=== PATIENT | female | born 1970 | race Caucasian/White ===

== ENCOUNTER 2018-10-02 17:43 | Emergency (ER) | payer OTHER ==
[2018-10-02 18:27] LABS: Absolute Lymphocytes (CBC) 2.4 K/uL (0.7-4.9); Absolute Monocytes 0.7 K/uL (0.1-1.3); Absolute Neutrophil 5.6 K/uL (1.8-8.0); Basophils % 0.4 % (0-1.3); Eosinophils % 0.6 % (0-4.4); Hematocrit 39.3 % (36.0-45.0); Lymphocytes % 27.2 % (15.3-44.8); MPV 9.2 fL (7.6-11.3); Monocytes % 7.7 % (3.3-12.3)
[2018-10-02 18:34] LABS: Protime INR 0.98
[2018-10-02 18:47] LABS: ALT/SGPT 72 U/L (12-78); AST/SGOT 178 U/L (15-37); Albumin 3.7 g/dL (3.4-5.0); Alkaline Phosphatase 76 U/L (45-117); BUN Blood Urea Nitrogen 13 mg/dL (7-18); Bicarbonate 26 mmol/L (21-32); Bilirubin Direct 0.1 mg/dL (0-0.2); Bilirubin Total 0.3 mg/dL (0.2-1.0); Glucose Level 92 mg/dL (74-106); Magnesium 2.2 mg/dL (1.8-2.4); NT PRO-BNP 50 pg/mL (<125); Potassium 3.7 mmol/L (3.5-5.1); Protein, Total 7.2 g/dL (6.4-8.2); Sodium Level 143 mmol/L (136-145); Troponin (Emerg Dept Use Only) < 0.02 ng/mL (0.0-0.045)
[2018-10-02] MEDS ORDERED: ASPIRIN 81 MG CHEWABLE TABLET ONE (18:50)
--- NOTE | 2018-10-02 19:41 | RAD REPORT ---
EXAM DESCRIPTION: RAD - Chest Single View - 10/02/2018 7:31 pm CLINICAL HISTORY: CHEST PAIN Chest pain. COMPARISON: No comparisons FINDINGS: Portable technique limits examination quality. The lungs are grossly clear. The heart is normal in size. No displaced fractures. IMPRESSION: No acute intrathoracic process suspected.
--- NOTE | 2018-10-02 21:49 | ER ---
Nurse's Notes [facility] Name: Steph Olguin Age: 48 yrs Sex: Female : 1970 Arrival Date: 10/02/2018 Time: 17:41 Bed 6 Private MD: Diagnosis: Chest pain, unspecified;Abnormal electrocardiogram [ECG] [EKG] Presentation: 10/02 17:42 Presenting complaint: EMS states: pt c/o chest heaviness, started approx 1615. hx of ch wpw and anxiety. took antivan around 1645, as soon as pt sat down on stretcher she felt better. last night had etoh, 1/2 a whisky, and smokes. Transition of care: patient was not received from another setting of care. Onset of symptoms was October 02, 2018 at 16:15. Risk Assessment: Do you want to hurt yourself or someone else? Patient reports no desire to harm self or others. Initial Sepsis Screen: Does the patient meet any 2 criteria? No. Patient's initial sepsis screen is negative. Does the patient have a suspected source of infection? No. Patient's initial sepsis screen is negative. Care prior to arrival: IV initiated. 20 GA, in the right antecubital area. 17:42 Method Of Arrival: EMS: [facility] 17:42 Acuity: GRADY 3 ch Triage Assessment: 18:08 General: Appears in no apparent distress. Behavior is anxious, fussy, restless. Pain: Complains of pain in chest Pain currently is 7 out of 10 on a pain scale. Cardiovascular: Heart tones S1 S2 present Capillary refill < 3 seconds in bilateral fingers toes Clubbing of nail beds is present Patient's skin is warm and dry. Pulses are all present. Edema is absent. Respiratory: Airway is patent Respiratory effort is even, unlabored, Breath sounds are coarse bilaterally. GI: No signs and/or symptoms were reported involving the gastrointestinal system. Derm: Skin is pink, warm \T\ dry. COOK SHORT ORDER: 18:08 LMP N/A - Post-menopause ch Historical: - Allergies: 17:45 No Known Allergies; ch - Home Meds: 17:45 Ativan 1 mg Oral tab [Active]; BuSpar Oral [Active]; ch - PMHx: 17:45 wpw; Anxiety; ch - Immunization history:: Adult Immunizations up to date. - Social history:: Smoking status: Patient uses tobacco products, Patient uses alcohol, on a daily basis. - Ebola Screening: : Patient negative for fever greater than or equal to 101.5 degrees Fahrenheit, and additional compatible Ebola Virus Disease symptoms Patient denies exposure to infectious person Patient denies travel to an Ebola-affected area in the 21 days before illness onset No symptoms or risks identified at this time. Screenin:52 Abuse screen: Denies threats or abuse. Denies injuries from another. Nutritional ch screening: No deficits noted. Tuberculosis screening: No symptoms or risk factors identified. Fall Risk None identified. Assessment: 18:52 Reassessment: Patient appears in no apparent distress at this time. Patient and/or ch family updated on plan of care and expected duration. Pain level reassessed. Patient is alert, oriented x 3, equal unlabored respirations, skin warm/dry/pink. Pain: Pain does not radiate. Pain currently is 5 out of 10 on a pain scale. Pain began suddenly, 3 hours ago. Neuro: No deficits noted. Cardiovascular: Heart tones S1 S2 present Capillary refill < 3 seconds in bilateral fingers toes Clubbing of nail beds is absent. Respiratory: Airway is patent Respiratory effort is even, unlabored, Breath sounds are clear bilaterally. GI: No signs and/or symptoms were reported involving the gastrointestinal system. : No signs and/or symptoms were reported regarding the genitourinary system. Derm: Skin is pink, warm \T\ dry. 19:30 Reassessment: Patient appears in no apparent distress at this time. Patient is alert, lp1 oriented x 3, equal unlabored respirations, skin warm/dry/pink. Patient updated on continued monitoring and labs to recheck cardiac enzymes Patient states feeling better. 20:30 Reassessment: Patient appears in no apparent distress at this time. Patient is alert, lp1 oriented x 3, equal unlabored respirations, skin warm/dry/pink. Patient states symptoms have improved. 21:32 Reassessment: Patient appears in no apparent distress at this time. No changes from lp1 previously documented assessment. Patient and/or family updated on plan of care and expected duration. Pain level reassessed. 21:49 Reassessment: Patient is alert, oriented x 3, equal unlabored respirations, skin lp1 warm/dry/pink. Provider at bedside to discuss results with patient. Vital Signs: 18:08 BP 116 / 65; Pulse 82; Resp 14; Temp 98.2; Pulse Ox 96% on R/A; Weight 95.25 kg; Height 5 ft. 11 in. (180.34 cm); Pain 6/10; 18:52 BP 115 / 66; Pulse 83; Resp 16; Temp 97.8; Pulse Ox 99% on R/A; Pain 5/10; ch 19:18 BP 130 / 61; Pulse 81; Resp 17; Pulse Ox 98% on R/A; lp1 20:30 BP 117 / 71; Pulse 78; Resp 13; Pulse Ox 100% on R/A; lp1 21:30 BP 114 / 57; Pulse 75; Resp 14; Pulse Ox 98% on R/A; lp1 21:48 BP 128 / 73; Pulse 88; Resp 17; Pulse Ox 99% on R/A; Pain 0/10; lp1 18:08 Body Mass Index 29.29 (95.25 kg, 180.34 cm) ED Course: 17:41 Patient arrived in ED. ch 17:44 Triage completed. ch 17:45 Arm band placed on left wrist. Patient placed in an exam room, on a stretcher, on monitoring manager, on pulse oximetry. 18:00 Patient has correct armband on for positive identification. Placed in gown. Bed in low position. Call light in reach. Side rails up X 1. Adult w/ patient. bus monitor on. Pulse ox on. NIBP on. 18:00 Warm blanket given. PO fluids given. 18:02 Tk Vidal PA is PHCP. jr8 18:02 Stephen Bundy MD is Attending Physician. jr8 18:08 Abby Byrne, LB is Primary Nurse. ch 18:08 EKG completed in triage. Results shown to . ch 18:12 Initial lab(s) drawn, by hi, sent to lab. 3 18:55 No provider procedures requiring assistance completed. ch 18:55 Maintain EMS IV. Dressing intact. Good blood return noted. Site clean \T\ dry. Gauge \T\ site: 20 Rac. Patient maintains SpO2 saturation greater than 95% on room air. 19:00 Report given to Jacquelyn. ch 19:31 XRAY Chest (1 view) In Process Unspecified. EDMS 21:10 Repeat lab(s) drawn. by me, sent to lab. EKG done, by ED staff, reviewed by Tk Vidal lp1 SERGIO. 21:48 Neftali Phillips MD is Referral Physician. jrJulieta 21:49 IV discontinued, No redness/swelling at site. Pressure dressing applied. lp1 Administered Medications: 18:35 Drug: Aspirin Chewable Tablet 324 mg Route: PO; 18:55 Follow up: Response: No adverse reaction Outcome: 21:48 Discharge ordered by . jr8 21:54 Discharged to home ambulatory, with family. lp1 21:54 Condition: good 21:54 Discharge instructions given to patient, Instructed on discharge instructions, follow up and referral plans. Demonstrated understanding of instructions, follow-up care. 21:55 Patient left the ED. lp1 Signatures: Dispatcher [employer] EDMS Abby Byrne RN RN Jacquelyn Eden RN RN lp Tk Vidal PA PA [facility] Mildred Pineda [facility]
--- NOTE | 2018-10-02 21:49 | EDPHYS ---
Physician Documentation [facility] Name: Steph Olguin Age: 48 yrs Sex: Female : 1970 Arrival Date: 10/02/2018 Time: 17:41 Bed 6 Private MD: ED Physician Stephen Bundy HPI: 10/02 18:30 This 48 yrs old Female presents to ER via EMS with complaints of Chest Pain. jr8 18:30 The patient or guardian reports chest pain that is located primarily in the substernal jr8 area. Onset: acutely, today, 1 hour(s) ago. The pain does not radiate. Associated signs and symptoms: Pertinent positives: flushed feeling . The chest pain is described as a pressure. Duration: The patient or guardian reports a single episode, that is still ongoing, but improving. Modifying factors: The symptoms are alleviated by nothing. the symptoms are aggravated by nothing. Severity of pain: At its worst the pain was moderate in the emergency department the pain has improved. The patient has not experienced similar symptoms in the past. The patient has been recently seen by a physician: with different complaint(s), the patient was seen for palpitations. Possible development of WPW. 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 - Social history:: Smoking status: Patient uses tobacco products, Patient uses alcohol, on a daily basis. - Ebola Screening: : Patient negative for fever greater than or equal to 101.5 degrees Fahrenheit, and additional compatible Ebola Virus Disease symptoms Patient denies exposure to infectious person Patient denies travel to an Ebola-affected area in the 21 days before illness onset No symptoms or risks identified at this time. ROS: 18:30 Eyes: Negative for injury, pain, redness, and discharge, ENT: Negative for injury, jr8 pain, and discharge, Neck: Negative for injury, pain, and swelling, Respiratory: Negative for shortness of breath, cough, wheezing, and pleuritic chest pain, Abdomen/GI: Negative for abdominal pain, nausea, vomiting, diarrhea, and constipation, Back: Negative for injury and pain, MS/Extremity: Negative for injury and deformity, Skin: Negative for injury, rash, and discoloration, Neuro: Negative for headache, weakness, numbness, tingling, and seizure. 18:30 Cardiovascular: Positive for chest pain, Negative for edema, orthopnea, palpitations, paroxysmal nocturnal dyspnea. Exam: 21:46 Eyes: Pupils equal round and reactive to light, extra-ocular motions intact. Lids and jr8 lashes normal. Conjunctiva and sclera are non-icteric and not injected. Cornea within normal limits. Periorbital areas with no swelling, redness, or edema. ENT: Nares patent. No nasal discharge, no septal abnormalities noted. Tympanic membranes are normal and external auditory canals are clear. Oropharynx with no redness, swelling, or masses, exudates, or evidence of obstruction, uvula midline. Mucous membranes moist. Neck: Trachea midline, no thyromegaly or masses palpated, and no cervical lymphadenopathy. Supple, full range of motion without nuchal rigidity, or vertebral point tenderness. No Meningismus. Cardiovascular: Regular rate and rhythm with a normal S1 and S2. No gallops, murmurs, or rubs. Normal PMI, no JVD. No pulse deficits. Respiratory: Lungs have equal breath sounds bilaterally, clear to auscultation and percussion. No rales, rhonchi or wheezes noted. No increased work of breathing, no retractions or nasal flaring. Abdomen/GI: Soft, non-tender, with normal bowel sounds. No distension or tympany. No guarding or rebound. No evidence of tenderness throughout. Back: No spinal tenderness. No costovertebral tenderness. Full range of motion. Skin: Warm, dry with normal turgor. Normal color with no rashes, no lesions, and no evidence of cellulitis. MS/ Extremity: Pulses equal, no cyanosis. Neurovascular intact. Full, normal range of motion. Neuro: Awake and alert, GCS 15, oriented to person, place, time, and situation. Cranial nerves II-XII grossly intact. Motor strength 5/5 in all extremities. Sensory grossly intact. Cerebellar exam normal. Normal gait. Vital Signs: 18:08 BP 116 / 65; Pulse 82; Resp 14; Temp 98.2; Pulse Ox 96% on R/A; Weight 95.25 kg; Height ch 5 ft. 11 in. (180.34 cm); Pain 6/10; 18:52 BP 115 / 66; Pulse 83; Resp 16; Temp 97.8; Pulse Ox 99% on R/A; Pain 5/10; ch 19:18 BP 130 / 61; Pulse 81; Resp 17; Pulse Ox 98% on R/A; lp1 20:30 BP 117 / 71; Pulse 78; Resp 13; Pulse Ox 100% on R/A; lp1 21:30 BP 114 / 57; Pulse 75; Resp 14; Pulse Ox 98% on R/A; lp1 21:48 BP 128 / 73; Pulse 88; Resp 17; Pulse Ox 99% on R/A; Pain 0/10; lp1 18:08 Body Mass Index 29.29 (95.25 kg, 180.34 cm) ch MDM: 18:02 Patient medically screened. roney 21:46 The patient was given aspirin in the Emergency Department. Data reviewed: vital signs, [facility] nurses notes, lab test result(s), EKG, radiologic studies, plain films. Data interpreted: Pulse oximetry: on room air is 98 %. Interpretation: normal. Counseling: I had a detailed discussion with the patient and/or guardian regarding: the historical points, exam findings, and any diagnostic results supporting the discharge/admit diagnosis, lab results, radiology results, the need for outpatient follow up, a supervisor mixing, to return to the emergency department if symptoms worsen or persist or if there are any questions or concerns that arise at home. ED course: Patient feeling much better. No pain currently. x2 negative troponins. ECG suggestive of WPW. Delta wave present. Explained to patient that she does need to see cardiology for this. Patient has appointment this week for this . 10/02 18:03 Order name: Basic Metabolic Panel; Complete Time: 18: [facility] 10/02 18:03 Order name: CBC with Diff; Complete Time: 18: [facility] 10/02 18:03 Order name: LFT's; Complete Time: 18:52 [facility] 10/02 18:03 Order name: Magnesium; Complete Time: 18:52 [facility] 10/02 18:03 Order name: NT PRO-BNP; Complete Time: 18:52 [facility] 10/02 18:03 Order name: PT-INR; Complete Time: 18:52 [facility] 10/02 18:03 Order name: Troponin (emerg Dept Use Only); Complete Time: 18:52 10/02 18:03 Order name: XRAY Chest (1 view); Complete Time: 19:42 10/02 18:03 Order name: EKG; Complete Time: 18:04 10/02 18:03 Order name: Cardiac monitoring; Complete Time: 18:11 [facility] 10/02 18:03 Order name: EKG - Nurse/Tech; Complete Time: 18:11 10/02 18:03 Order name: IV Saline Lock; Complete Time: 18:11 10/02 20:55 Order name: Troponin (emerg Dept Use Only); Complete Time: 21:40 lp1 10/02 18:03 Order name: Labs collected and sent; Complete Time: 18:10/02 18:03 Order name: O2 Per Protocol; Complete Time: 18: [facility] 10/02 18:03 Order name: O2 Sat Monitoring; Complete Time: 18: [facility] 10/02 21:31 Order name: EKG - Nurse/Tech; Complete Time: 21:31 lp1 Administered Medications: 18:35 Drug: Aspirin Chewable Tablet 324 mg Route: PO; 18:55 Follow up: Response: No adverse reaction Disposition: 10/03 09:54 Co-signature as Attending Physician, Stephen Bundy MD I agree with the assessment and roney plan of care. PA/SUPERVISOR TELEPHONE ANSWERING SERVICE's history reviewed, patient interviewed, and examined. Disposition: 10/02/18 21:48 Discharged to Home. Impression: Chest pain, unspecified, Abnormal electrocardiogram [ECG] [EKG]. - Condition is Stable. - Discharge Instructions: Nonspecific Chest Pain, Aohhy-Frucxcyjy-Ndhml Syndrome, Aspirin and Your Heart, Chest Pain Observation. - Medication Reconciliation Form, Thank You Letter, Antibiotic Education, Prescription Opioid Use form. - Follow up: Neftali Phillips MD; When: 2 - 3 days; Reason: Recheck today's complaints, Continuance of care, Re-evaluation by your physician. - Problem is new. - Symptoms have improved. Signatures: Dispatcher [employer] EDMS Abby Byrne RN RN ch Anderson, Corey, MD MD cha Pena, Laura, RN RN lp1 Tk Vidal PA PA jr8 Corrections: (The following items were deleted from the chart) 10/02 21:55 21:48 10/02/2018 21:48 Discharged to Home. Impression: Chest pain, unspecified; lp1 Abnormal electrocardiogram [ECG] [EKG]. Condition is Stable. Forms are Medication Reconciliation Form, Thank You Letter, Antibiotic Education, Prescription Opioid Use. Follow up: Neftali Phillips; When: 2 - 3 days; Reason: Recheck today's complaints, Continuance of care, Re-evaluation by your physician. Problem is new. Symptoms have improved. jr8
--- NOTE | 2018-10-03 08:35 | EKG ---
Test Date: 2018-10-02 Test Time: 20:03:46 Pit Shovel Operator: KARLA MEASUREMENT RESULTS: Intervals: Rate: 75 MA: 126 QRSD: 110 QT: 428 QTc: 477 [place]: P: 61 MA: 126 QRS: -3 T: 78 INTERPRETIVE STATEMENTS: Normal sinus rhythm Ventricular pre-excitation, WPW pattern type A Abnormal ECG Compared to ECG 10/02/2018 16:50:08 No significant changes Electronically Signed On 10-03-18 08:34:11 CDT by Akash Erazo
== END 2018-10-02 21:55 | disposition home or self-care (01) ==
LOC: ER 17:43
DX: R94.31 Abnormal electrocardiogram [ECG] [EKG] (principal); F41.9 Anxiety disorder, unspecified; Z72.0 Tobacco use
CPT/HCPCS: 36415; 71045; 80048; 80076; 83735; 83880; 84484; 85025; 85610; 93005; 99285

== ENCOUNTER 2019-05-12 20:27 | Emergency (ER) | payer OTHER ==
[2019-05-12] MEDS ORDERED: HYDROCODONE/APAP 10/325 TAB ONE (21:19)
[2019-05-12] MEDS ORDERED: CLINDAMYCIN IV 150 MG/ML (4 mL) VIAL ONE (21:20)
--- NOTE | 2019-05-12 22:02 | ER ---
Nurse's Notes [facility] Name: Steph Olguin Age: 49 yrs Sex: Female : 1970 Arrival Date: 05/12/2019 Time: 20:32 Bed 15 Private MD: Diagnosis: Periapical abscess without sinus Presentation: 05/12 20:25 Presenting complaint: Patient states: that she has left facial swelling from a left fc upper tooth abscess that started yesterday. Went to dentist at [facility] today and was given Amoxicillin and Tylenol #3. Came to [facility] because the pain is getting worse along with the swelling. Transition of care: patient was not received from another setting of care. Onset of symptoms was May 11, 2019. Risk Assessment: Do you want to hurt yourself or someone else? Patient reports no desire to harm self or others. Initial Sepsis Screen: Does the patient meet any 2 criteria? HR > 90 bpm. Yes Does the patient have a suspected source of infection? Yes: Other: tooth. Care prior to arrival: Medication(s) given: Tylenol, 1000 mg, per EMS. 20:25 Method Of Arrival: EMS: [facility] 20:25 Acuity: GRADY 3 Triage Assessment: 20:45 EENT: Reports pain in upper left second bicuspid (#13) and upper left second bicuspid. 22:23 General: Appears. 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 - Social history:: Smoking status: Patient uses tobacco products, smokes one-half pack cigarettes per day, Patient/guardian denies using alcohol, street drugs. - Ebola Screening: : Patient negative for fever greater than or equal to 101.5 degrees Fahrenheit, and additional compatible Ebola Virus Disease symptoms Patient denies exposure to infectious person Patient denies travel to an Ebola-affected area in the 21 days before illness onset. Screenin:25 Abuse screen: Denies threats or abuse. Nutritional screening: No deficits noted. Tuberculosis screening: No symptoms or risk factors identified. Fall Risk None identified. Assessment: 22:00 General: Appears in no apparent distress. Behavior is calm, cooperative, appropriate wh for age. Pain: Complains of pain in left cheek Pain does not radiate. Pain currently is 10 out of 10 on a pain scale. Quality of pain is described as aching, Pain began 2-3 days ago. Neuro: Level of Consciousness is awake, alert, obeys commands. Cardiovascular: Capillary refill < 3 seconds. Respiratory: Airway is patent Respiratory effort is even, unlabored, Respiratory pattern is regular, symmetrical. GI: Abdomen is flat, non-distended. : No signs and/or symptoms were reported regarding the genitourinary system. EENT: swelling. Derm: Skin is intact, is healthy with good turgor, Skin is pink, warm \T\ dry. normal. Musculoskeletal: Circulation, motion, and sensation intact. 22:14 Reassessment: Patient appears in no apparent distress at this time. No changes from previously documented assessment. Patient and/or family updated on plan of care and expected duration. Pain level reassessed. Patient is alert, oriented x 3, equal unlabored respirations, skin warm/dry/pink. Patient denies pain at this time. Patient states feeling better. Patient states symptoms have improved. Vital Signs: 20:25 BP 127 / 84; Pulse 98; Resp 18; Temp 99.0(O); Pulse Ox 100% on R/A; Weight 90.72 kg (R); Height 5 ft. 11 in. (180.34 cm) (R); Pain 8/10; 22:27 BP 124 / 64; Pulse 78; Resp 18; Pulse Ox 94% on R/A; wh 20:25 Body Mass Index 27.89 (90.72 kg, 180.34 cm) ED Course: 20:25 Arm band placed on Patient placed in an exam room, on a stretcher. 20:25 Patient has correct armband on for positive identification. Bed in low position. Call light in reach. Side rails up X2. Pulse ox on. NIBP on. 20:25 No provider procedures requiring assistance completed. 20:32 Patient arrived in ED. 20:35 Triage completed. 20:39 Francisco Briones NP is PHCP. pm1 20:39 Stephen Bundy MD is Attending Physician. pm1 20:56 Alexandra Mckee is Primary Nurse. 22:26 Patient did not have IV access during this emergency room visit. Administered Medications: 21:28 Drug: Clindamycin 600 mg {Note: Left Gluteus.} Route: IM; Site: right gluteus; 22:23 Follow up: Response: No adverse reaction 21:29 Drug: [place] 10 mg-325 mg 1 tabs {Note: RASS 0.} Route: PO; 22:23 Follow up: Response: No adverse reaction; Pain is decreased; RASS: Alert and Calm (0) Outcome: 21:58 Discharge ordered by MD. pm1 22:22 Discharged to home ambulatory. 22:22 Condition: good 22:22 Discharge instructions given to patient, Instructed on discharge instructions, follow up and referral plans. no drinking with medication, no driving heavy equipment, medication usage, POC Periapical Abscess Demonstrated understanding of instructions, follow-up care, medications, POC Prescriptions given X 2. 22:27 Patient left the ED. Signatures: Ursula Vargas RN RN Francisco Briones NP STATE AUDITOR pm1 Alexandra Mckee Corrections: (The following items were deleted from the chart) 20:35 20:25 Care prior to arrival: None. [facility]
--- NOTE | 2019-05-12 22:03 | EDPHYS ---
Physician Documentation [facility] Name: Steph Olguin Age: 49 yrs Sex: Female : 1970 Arrival Date: 05/12/2019 Time: 20:32 Bed 15 Private MD: ED Physician Stephen Bundy HPI: 05/12 21:50 This 49 yrs old Female presents to ER via EMS with complaints of Toothache. pm1 21:50 The patient presents with pain, swelling. The problem is located in the upper left pm1 second bicuspid. Onset: The symptoms/episode began/occurred 3 days of pain with onset of swelling today. Patient was seen by dentist today and was given a prescription of amoxicillin and Tylenol #3. Patient has taken three pills of amoxicillin and Tylenol #3. Patient reports onset of swelling today after dentist visit. Associated signs and symptoms: Pertinent positives: swelling, facial, Pertinent negatives: dysphagia, fever, inability to eat. Severity of symptoms: in the emergency department the symptoms are actually worse. The patient has experienced similar episodes in the past, a few times. 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 - Social history:: Smoking status: Patient uses tobacco products, smokes one-half pack cigarettes per day, Patient/guardian denies using alcohol, street drugs. - Ebola Screening: : Patient negative for fever greater than or equal to 101.5 degrees Fahrenheit, and additional compatible Ebola Virus Disease symptoms Patient denies exposure to infectious person Patient denies travel to an Ebola-affected area in the 21 days before illness onset. ROS: 21:50 Constitutional: Negative for fever, chills, and weight loss, Eyes: Negative for injury, pm1 pain, redness, and discharge. 21:50 Neck: Negative for injury, pain, and swelling, Cardiovascular: Negative for chest pain, palpitations, and edema, Respiratory: Negative for shortness of breath, cough, wheezing, and pleuritic chest pain, Abdomen/GI: Negative for abdominal pain, nausea, vomiting, diarrhea, and constipation, Back: Negative for injury and pain, MS/Extremity: Negative for injury and deformity, Skin: Negative for injury, rash, and discoloration. 21:50 Neuro: Negative for headache, weakness, numbness, tingling, and seizure. 21:50 ENT: Positive for dental pain, Negative for ear pain, sore throat, difficulty swallowing, difficulty handling secretions, hoarseness. Exam: 21:50 Constitutional: This is a well developed, well nourished patient who is awake, alert, pm1 and in no acute distress. Head/Face: Normocephalic, atraumatic. 21:50 Neck: Trachea midline, no thyromegaly or masses palpated, and no cervical lymphadenopathy. Supple, full range of motion without nuchal rigidity, or vertebral point tenderness. No Meningismus. Chest/axilla: Normal chest wall appearance and motion. Nontender with no deformity. No lesions are appreciated. Cardiovascular: Regular rate and rhythm with a normal S1 and S2. No gallops, murmurs, or rubs. Normal PMI, no JVD. No pulse deficits. Respiratory: Lungs have equal breath sounds bilaterally, clear to auscultation and percussion. No rales, rhonchi or wheezes noted. No increased work of breathing, no retractions or nasal flaring. Back: No spinal tenderness. No costovertebral tenderness. Full range of motion. Skin: Warm, dry with normal turgor. Normal color with no rashes, no lesions, and no evidence of cellulitis. MS/ Extremity: Pulses equal, no cyanosis. Neurovascular intact. Full, normal range of motion. 21:50 ENT: External ear(s): are unremarkable, Ear canal(s): are normal, TM's: are normal, Mouth: is normal, no acute changes, Lips: normal, Oral mucosa: normal, Tongue: is normal, No trismus. Floor of mouth under tongue is soft. Upper plate non-tender, Posterior pharynx: is normal, airway is patent, no erythema, no exudate, no peritonsilar mass, no pooling of secretions, no swelling, Dental exam: abscess, is not appreciated, dental caries, specifically in the upper left second bicuspid (#13), gum swelling, that is mild, specifically in the upper left second bicuspid (#13), missing teeth, diffusely. 21:50 Neuro: Orientation: is normal, Motor: is normal, moves all fours, Gait: is steady, at a normal pace, without difficulty. Vital Signs: 20:25 BP 127 / 84; Pulse 98; Resp 18; Temp 99.0(O); Pulse Ox 100% on R/A; Weight 90.72 kg fc (R); Height 5 ft. 11 in. (180.34 cm) (R); Pain 8/10; 22:27 BP 124 / 64; Pulse 78; Resp 18; Pulse Ox 94% on R/A; wh 20:25 Body Mass Index 27.89 (90.72 kg, 180.34 cm) MDM: 20:39 Patient medically screened. pm1 20:55 Data reviewed: vital signs. Data interpreted: Pulse oximetry: on room air is 100 %. pm1 Interpretation: normal. 21:55 Counseling: I had a detailed discussion with the patient and/or guardian regarding: the pm1 historical points, exam findings, and any diagnostic results supporting the discharge/admit diagnosis, the need for outpatient follow up, for definitive care, a dentist, to return to the emergency department if symptoms worsen or persist or if there are any questions or concerns that arise at home. 21:55 ED course: Due to swelling will change antibiotic therapy from amoxicillin to pm1 clindamycin. Will be able to load to therapeutic dosage with Clindamycin IM in ER to Clindamycin prescription PO. Patient only given 6 tablets of Tylenol #3. Patient already used three, therefore will give patient another prescription. Administered Medications: 21:28 Drug: Clindamycin 600 mg {Note: Left Gluteus.} Route: IM; Site: right gluteus; 22:23 Follow up: Response: No adverse reaction 21:29 Drug: [place] 10 mg-325 mg 1 tabs {Note: RASS 0.} Route: PO; 22:23 Follow up: Response: No adverse reaction; Pain is decreased; RASS: Alert and Calm (0) Disposition: 05/12/19 21:58 Discharged to Home. Impression: Periapical abscess without sinus. - Condition is Stable. - Discharge Instructions: Dental Pain. - Prescriptions for Clindamycin HCl 300 mg Oral Capsule - take 1 capsule by ORAL route every 6 hours for 10 days; 40 capsule. Tylenol- Codeine #3 300-30 mg Oral Tablet - take 2 tablet by ORAL route every 6 hours As needed; 30 tablet. - Medication Reconciliation Form, Thank You Letter, Antibiotic Education, Prescription Opioid Use form. - Follow up: Emergency Department; When: As needed; Reason: Worsening of condition. Follow up: Private Physician; When: 2 - 3 days; Reason: Recheck today's complaints, Continuance of care, Re-evaluation by your physician. - Problem is new. - Symptoms have improved. Addendum: 05/15/2019 08:09 Co-signature as Attending Physician, Stephne Bundy MD I agree with the assessment and c carreon plan of care. Signatures: Stephen Bundy MD MD cha Chretien, Felicia RN RN Francisco Abdul, [facility] A[facility] pm1 Alexandra Mckee Corrections: (The following items were deleted from the chart) 05/12 22:27 21:58 05/12/2019 21:58 Discharged to Home. Impression: Periapical abscess without wh sinus. Condition is Stable. Forms are Medication Reconciliation Form, Thank You Letter, Antibiotic Education, Prescription Opioid Use. Follow up: Emergency Department; When: As needed; Reason: Worsening of condition. Follow up: Private Physician; When: 2 - 3 days; Reason: Recheck today's complaints, Continuance of care, Re-evaluation by your physician. Problem is new. Symptoms have improved. pm1
[2019-05-12 22:57] VITALS: BP 124/64; O2SAT 94
== END 2019-05-12 22:27 | disposition home or self-care (01) ==
LOC: ER 20:27
DX: K04.7 Periapical abscess without sinus (principal); F41.8 Other specified anxiety disorders; F17.210 Nicotine dependence, cigarettes, uncomplicated
CPT/HCPCS: 96372; 99284; S0077

== ENCOUNTER 2019-06-19 12:16 | Emergency (ER) | payer OTHER ==
--- OUTSIDE RECORDS SUMMARY | 2019-06-19 12:19 | XMS REPORT ---
:1970 Author Organization [facility] Address [address] [place] [address] Care Team Providers Name Role Phone Unavailable Unavailable Unavailable Problems This patient has no known problems. Allergies, Adverse Reactions, Alerts This patient has no known allergies or adverse reactions. Medications This patient has no known medications.
[2019-06-19] MEDS ORDERED: NA CHLORIDE 0.9% 1,000 ML ONE (14:19)
[2019-06-19 14:23] LABS: Absolute Lymphocytes (CBC) 2.7 K/uL (0.7-4.9); Basophils % 0.6 % (0-1.3); Hematocrit 35.4 % (36.0-45.0); Lymphocytes % 26.4 % (15.3-44.8); MPV 8.9 fL (7.6-11.3); RBC Red Blood Cell Count 3.87 M/uL (3.86-4.86)
[2019-06-19 14:56] LABS: Albumin 3.8 g/dL (3.4-5.0); Bilirubin Direct 0.2 mg/dL (0-0.2); Bilirubin Total 0.3 mg/dL (0.2-1.0); Potassium 3.8 mmol/L (3.5-5.1); Protein, Total 7.3 g/dL (6.4-8.2)
[2019-06-19] MEDS ORDERED: METRONIDAZOLE 500mg IVPB 500 MG/100 ML BAG IV ONE (16:27)
[2019-06-19] MEDS ORDERED: CIPROFLOXACIN 400mg IV 400 MG/200 ML BAG IV ONE (16:27)
--- NOTE | 2019-06-19 17:31 | RAD REPORT ---
EXAM DESCRIPTION: CTAbdomen Pelvis W Contrast - 06/19/2019 4:26 pm CLINICAL HISTORY: Abdominal pain. ABD PAIN COMPARISON: <Comparisons> TECHNIQUE: Biphasic CT imaging of the abdomen and pelvis was performed with 100 ml non-ionic IV cont rast. All CT scans are performed using dose optimization technique as appropriate and may include automated exposure control or mA/KV adjustment according to patient size. FINDINGS: The lung bases are clear.Small hiatal hernia is present. The liver, spleen, pancreas, adrenal glands and kidneys are within normal limits. There is significant distention of the sigmoid colon. There is postsurgical changes in the region of the sigmoid. Focal area of narrowing of the sigmoid colon in the left abdomen is noted (image 55/97). Moderate fecal retention is present throughout the colon. No evidence of significant lymphadenopat hy. No suspicious bony findings. 4.4 cm right ovarian or adnexal cystic lesion noted. IMPRESSION: Sigmoid volvulus is suspected.
--- NOTE | 2019-06-19 18:07 | EDPHYS ---
Physician Documentation [facility] Name: Steph Olguin Age: 49 yrs Sex: Female : 1970 Arrival Date: 06/19/2019 Time: 12:19 Bed 30 Private MD: Unknown, Unknown ED Physician Stephen Bundy HPI: 06/19 16:22 This 49 yrs old Female presents to ER via Ambulatory with complaints of roney Rectal Bleeding. 16:22 The patient presents to the emergency department with bleeding from the rectum/anus. roney Onset: The symptoms/episode began/occurred yesterday. Context: the patient has no known special context relating to the rectal area complaint(s). Modifying factors: The symptoms are alleviated by nothing, The symptoms are aggravated by bowel movement. Associate signs and symptoms: The patient has no apparent associated signs or symptoms. The patient has experienced similar episodes in the past, a few times. 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 - Social history:: Smoking status: Patient/guardian denies using tobacco. - Ebola Screening: : No symptoms or risks identified at this time. ROS: 16:23 Constitutional: Negative for fever, chills, and weight loss, Eyes: Negative for injury, roney pain, redness, and discharge, ENT: Negative for injury, pain, and discharge, Neck: Negative for injury, pain, and swelling, Cardiovascular: Negative for chest pain, palpitations, and edema, Respiratory: Negative for shortness of breath, cough, wheezing, and pleuritic chest pain, Back: Negative for injury and pain, : Negative for injury, bleeding, discharge, and swelling, MS/Extremity: Negative for injury and deformity, Skin: Negative for injury, rash, and discoloration, Neuro: Negative for headache, weakness, numbness, tingling, and seizure, Psych: Negative for depression, anxiety, suicide ideation, homicidal ideation, and hallucinations, Allergy/Immunology: Negative for hives, rash, and allergies, Endocrine: Negative for neck swelling, polydipsia, polyuria, polyphagia, and marked weight changes, Hematologic/Lymphatic: Negative for swollen nodes, abnormal bleeding, and unusual bruising. 16:23 Abdomen/GI: Positive for abdominal pain, abdominal cramps, of the right lower quadrant and left lower quadrant. Exam: 16:23 Constitutional: This is a well developed, well nourished patient who is awake, alert, roney and in no acute distress. Head/Face: Normocephalic, atraumatic. Eyes: Pupils equal round and reactive to light, extra-ocular motions intact. Lids and lashes normal. Conjunctiva and sclera are non-icteric and not injected. Cornea within normal limits. Periorbital areas with no swelling, redness, or edema. ENT: Nares patent. No nasal discharge, no septal abnormalities noted. Tympanic membranes are normal and external auditory canals are clear. Oropharynx with no redness, swelling, or masses, exudates, or evidence of obstruction, uvula midline. Mucous membranes moist. Neck: Trachea midline, no thyromegaly or masses palpated, and no cervical lymphadenopathy. Supple, full range of motion without nuchal rigidity, or vertebral point tenderness. No Meningismus. Chest/axilla: Normal chest wall appearance and motion. Nontender with no deformity. No lesions are appreciated. Cardiovascular: Regular rate and rhythm with a normal S1 and S2. No gallops, murmurs, or rubs. Normal PMI, no JVD. No pulse deficits. Respiratory: Lungs have equal breath sounds bilaterally, clear to auscultation and percussion. No rales, rhonchi or wheezes noted. No increased work of breathing, no retractions or nasal flaring. Back: No spinal tenderness. No costovertebral tenderness. Full range of motion. Female : Normal external genitalia. Skin: Warm, dry with normal turgor. Normal color with no rashes, no lesions, and no evidence of cellulitis. MS/ Extremity: Pulses equal, no cyanosis. Neurovascular intact. Full, normal range of motion. Neuro: Awake and alert, GCS 15, oriented to person, place, time, and situation. Cranial nerves II-XII grossly intact. Motor strength 5/5 in all extremities. Sensory grossly intact. Cerebellar exam normal. Normal gait. Psych: Awake, alert, with orientation to person, place and time. Behavior, mood, and affect are within normal limits. 16:23 Abdomen/GI: Inspection: distension, that is mild, Bowel sounds: normal, Palpation: mild abdominal tenderness, in the right lower quadrant and left lower quadrant, Liver: no appreciated palpable abnormalities, Hernia: not appreciated. Vital Signs: 12:35 BP 132 / 81; Pulse 77; Resp 16; Temp 98.3; Pulse Ox 100% on R/A; la1 16:05 BP 150 / 107; Pulse 79; Resp 18; Pulse Ox 100% on R/A; mg2 17:06 BP 145 / 83 Supine; Pulse 71; Resp 18; Pulse Ox 100% on R/A; mg2 17:06 BP 133 / 75 Sitting; Pulse 72; Resp 18; Pulse Ox 100% on R/A; mg2 17:06 BP 157 / 96 Standing; Pulse 82; Resp 18; Pulse Ox 100% on R/A; mg2 18:13 BP 145 / 91; Pulse 75; Resp 18; Pulse Ox 100% on R/A; mg2 MDM: 14:04 Patient medically screened. [facility] 18:06 Data reviewed: vital signs, nurses notes, lab test result(s), EKG, radiologic studies, [facility] CT scan, plain films. 19:20 Other consultation: dr suarez saw and examined the patient, wants the patient to go [facility] home and follow up with dr samy hudson. 06/19 14:01 Order name: Basic Metabolic Panel; Complete Time: 16:08 [facility] 06/19 14:01 Order name: CBC with Diff; Complete Time: 16: [facility] 06/19 14:01 Order name: Creatinine for Radiology; Complete Time: 16: [facility] 06/19 14:01 Order name: Hepatic Function; Complete Time: 16:08 [facility] 06/19 14:01 Order name: Lipase; Complete Time: 16:08 [facility] 06/19 16:09 Order name: CT Abd/Pelvis - PO and IV Contrast [facility] 06/19 16:11 Order name: Urine --Ancillary (enter results); Complete Time: 16:21 bd 06/19 14:01 Order name: IV Saline Lock; Complete Time: 14:15 [facility] 06/19 14:01 Order name: Labs collected and sent; Complete Time: 14:15 [facility] 06/19 14:12 Order name: Urine Dipstick-Ancillary (obtain specimen); Complete Time: 14:44 [facility] 06/19 16:22 Order name: Orthostatics; Complete Time: 17:05 [facility] 06/19 18:03 Order name: CONS Physician Consult EDMS Administered Medications: 14:37 Drug: NS 0.9% 1000 ml Route: IV; Rate: 1 bolus; Site: right antecubital; mg2 18:16 Follow up: Response: No adverse reaction; IV Status: Completed infusion; IV Intake: mg2 1000ml 17:05 Drug: Cipro 400 mg Volume: 200 ml; Route: IVPB; Infused Over: 60 mins; Site: right mg2 antecubital; 18:15 Follow up: Response: No adverse reaction; IV Status: Completed infusion mg2 17:05 Drug: Flagyl 500 mg Volume: 100 ml; Route: IVPB; Rate: 200 ml/hr; Infused Over: 30 mg2 mins; Site: right antecubital; 18:15 Follow up: Response: No adverse reaction; IV Status: Completed infusion mg2 Disposition: 06/19/19 19:23 Discharged to Home. Impression: Gastrointestinal hemorrhage, unspecified, Abdominal tenderness - sigmoid stricture. - Condition is Stable. - Discharge Instructions: Abdominal Pain, Adult, Gastrointestinal Bleeding, Abdominal Pain, Adult, [id number]. - Prescriptions for Bentyl 20 mg Oral Tablet - take 1 tablet by ORAL route every 6 hours As needed; 20 tablet. Pepcid 20 mg Oral Tablet - take 1 tablet by ORAL route every 12 hours for 10 days; 20 tablet. Zofran 4 mg Oral Tablet - take 1 tablet by ORAL route every 12 hours As needed; 20 tablet. - Medication Reconciliation Form, Thank You Letter, Antibiotic Education, Prescription Opioid Use form. - Follow up: Private Physician; When: 2 - 3 days; Reason: Recheck today's complaints, Continuance of care, Re-evaluation by your physician. - Problem is new. - Symptoms have improved. Signatures: Dispatcher [employer] EDMS Eve Lopez Corey, MD MD cha Attema, Lee, RN RN la1 Don Bennett RN RN ja1 Jens Watts RN RN mg2 Corrections: (The following items were deleted from the chart) 16:13 14:13 Abdomen Pelvis W Con+CT.RAD.BRZ ordered. [facility] 18:12 15:07 URINE DIPSTICK--ANCILLARY+U.LAB.BRZ ordered. [facility] 18:12 15:07 URINE --ANCILLARY+UC.LAB.BRZ ordered. [facility] 18:12 16:08 URINE --ANCILLARY+UC.LAB.BRZ reviewed. [facility] 18:12 16:08 URINE DIPSTICK--ANCILLARY+U.LAB.BRZ reviewed. [facility] EDND 18:45 18:06 Hospitalization Ordered by for Inpatient Admission. Preliminary diagnosis is bd Gastrointestinal hemorrhage, unspecified - stable; Volvulus - sigmoid. Bed requested for Telemetry/MedSurg (Inpatient). Status is Inpatient Admission. Condition is Fair. Problem is new. Symptoms have improved. UTI on Admission? No. [facility] 18:50 18:45 06/19/2019 18:06 Hospitalization Ordered by Stephen Bundy MD for Inpatient [facility] Admission. Preliminary diagnosis is Gastrointestinal hemorrhage, unspecified - stable; Volvulus - sigmoid. Bed requested for Telemetry/MedSurg (Inpatient). Status is Inpatient Admission. Condition is Fair. Problem is new. Symptoms have improved. UTI on Admission? No. bd 19:20 18:50 06/19/2019 18:06 Hospitalization Ordered by Stephen Bundy MD for Inpatient [facility] Admission. Preliminary diagnosis is Gastrointestinal hemorrhage, unspecified - stable; Volvulus - sigmoid. Bed requested for Telemetry/MedSurg (Inpatient). Status is Inpatient Admission. Condition is Fair. Problem is new. Symptoms have improved. UTI on Admission? No. ja1 19:53 19:23 06/19/2019 19:23 Discharged to Home. Impression: Gastrointestinal hemorrhage, mg2 unspecified; Abdominal tenderness - sigmoid stricture. Condition is Stable. Prescriptions for Bentyl 20 mg Oral Tablet - take 1 tablet by ORAL route every 6 hours As needed; 20 tablet, Flagyl 500 mg Oral Tablet - take 1 tablet by ORAL route every 8 hours for 7 days; 21 tablet, Cipro 500 mg Oral Tablet - take 1 tablet by ORAL route every 12 hours for 7 days; 14 tablet. and Forms are Medication Reconciliation Form, Thank You Letter, Antibiotic Education, Prescription Opioid Use. Follow up: Private Physician; When: 2 - 3 days; Reason: Recheck today's complaints, Continuance of care, Re-evaluation by your physician. Problem is new. Symptoms have improved. roney
--- NOTE | 2019-06-19 18:07 | ER ---
Nurse's Notes [facility] Name: Steph Olguin Age: 49 yrs Sex: Female : 1970 Arrival Date: 06/19/2019 Time: 12:19 Bed 30 Private MD: Unknown, Unknown Diagnosis: Gastrointestinal hemorrhage, unspecified;Abdominal tenderness-sigmoid stricture Presentation: 06/19 12:33 Presenting complaint: Patient states: I started having bright red blood in my stool la1 since yesterday, now has happened a few times now. Transition of care: patient was not received from another setting of care. Onset of symptoms was June 19, 2019. Risk Assessment: Do you want to hurt yourself or someone else? Patient reports no desire to harm self or others. Initial Sepsis Screen: Does the patient meet any 2 criteria? No. Patient's initial sepsis screen is negative. Does the patient have a suspected source of infection? No. Patient's initial sepsis screen is negative. Care prior to arrival: None. 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 - Social history:: Smoking status: Patient/guardian denies using tobacco. - Ebola Screening: : No symptoms or risks identified at this time. Screenin:38 Abuse screen: Denies threats or abuse. Denies injuries from another. Nutritional mg2 screening: No deficits noted. Tuberculosis screening: No symptoms or risk factors identified. Fall Risk IV access (20 points). Assessment: 14:31 General: Appears in no apparent distress. comfortable, Behavior is calm, cooperative. mg2 Pain: Complains of pain in abdomen Pain does not radiate. Pain currently is 6 out of 10 on a pain scale. Quality of pain is described as aching, Pain began gradually, 1 day ago. Is intermittent. Neuro: Level of Consciousness is awake, alert, obeys commands, Oriented to person, place, time, situation. Cardiovascular: Capillary refill < 3 seconds Patient's skin is warm and dry. Respiratory: Airway is patent. GI: Abdomen is non-distended, Reports lower abdominal pain, rectal bleeding, epigastric pain, since yesterday but black stool 4 days ago. : No signs and/or symptoms were reported regarding the genitourinary system. EENT: No signs and/or symptoms were reported regarding the EENT system. Derm: Skin. 18:14 Reassessment: Patient appears in no apparent distress at this time. patient informed mg2 about the plan for hospitalization and she said she wants to talk to the provider first. provider informed. 19:47 Reassessment: dr martinez came and spoke to the patient and advised to dc the patient mg2 and ff-up with a GI dr [facility]child in [facility]. Vital Signs: 12:35 BP 132 / 81; Pulse 77; Resp 16; Temp 98.3; Pulse Ox 100% on R/A; la1 16:05 BP 150 / 107; Pulse 79; Resp 18; Pulse Ox 100% on R/A; mg2 17:06 BP 145 / 83 Supine; Pulse 71; Resp 18; Pulse Ox 100% on R/A; mg2 17:06 BP 133 / 75 Sitting; Pulse 72; Resp 18; Pulse Ox 100% on R/A; mg2 17:06 BP 157 / 96 Standing; Pulse 82; Resp 18; Pulse Ox 100% on R/A; mg2 18:13 BP 145 / 91; Pulse 75; Resp 18; Pulse Ox 100% on R/A; mg2 ED Course: 12:19 Patient arrived in ED. ag5 12:20 Unknown, Unknown is Private Physician. ag5 12:34 Triage completed. la1 12:35 Arm band placed on left wrist. la1 14:00 Jens Watts RN is Primary Nurse. mg2 14:04 Stephen Bundy MD is Attending Physician. roney 14:12 Inserted saline lock: 20 gauge in right antecubital area, using aseptic technique. rv Blood collected. 14:38 Patient has correct armband on for positive identification. Pulse ox on. NIBP on. Door mg2 closed. Warm blanket given. 16:27 CT Abd/Pelvis - PO and IV Contrast In Process Unspecified. EDMS 16:28 CT completed. Patient tolerated procedure well. Patient moved to CT via wheelchair. nc Patient moved back from CT. 18:45 Stephen Bundy MD is Hospitalizing Provider. bd 19:46 No provider procedures requiring assistance completed. IV discontinued, intact, mg2 bleeding controlled, No redness/swelling at site. Pressure dressing applied. Administered Medications: 14:37 Drug: NS 0.9% 1000 ml Route: IV; Rate: 1 bolus; Site: right antecubital; mg2 18:16 Follow up: Response: No adverse reaction; IV Status: Completed infusion; IV Intake: mg2 1000ml 17:05 Drug: Cipro 400 mg Volume: 200 ml; Route: IVPB; Infused Over: 60 mins; Site: right mg2 antecubital; 18:15 Follow up: Response: No adverse reaction; IV Status: Completed infusion mg2 17:05 Drug: Flagyl 500 mg Volume: 100 ml; Route: IVPB; Rate: 200 ml/hr; Infused Over: 30 mg2 mins; Site: right antecubital; 18:15 Follow up: Response: No adverse reaction; IV Status: Completed infusion mg2 Intake: 18:16 IV: 1000ml; Total: 1000ml. mg2 Outcome: 18:06 Decision to Hospitalize by Provider. roney 19:23 Discharge ordered by . roney 19:47 Discharged to home ambulatory, with family. mg2 19:47 Condition: good 19:47 Discharge instructions given to patient, family, Instructed on discharge instructions, follow up and referral plans. medication usage, Demonstrated understanding of instructions, follow-up care, medications, Prescriptions given X 3. 19:53 Patient left the ED. mg2 Signatures: Dispatcher [employer] EDMS Eve Lopez bd Stephen Bundy MD MD cha Attema, Lee RN RN la1 [place] Michele, RN RN mg2 [place] RN RN Mervat Du 5
--- NOTE | 2019-06-19 20:29 | P.CNS ---
Date of Consult: 06/19/19 PC: I was asked to see this patient in regards to a possible sigmoid volvulus. HPC: Patient has had a history of bowel issues for the last few years. In early 1999 had a exploratory laparotomy with a partial bowel resection. She came in today because she noticed some blood in her stool. She is not having any pain or discomfort, her bowel habits are her usual chronic constipation. She has been on MiraLax. PMH: Anxiety, depression, and fear of the outside. PSHx: Exploratory laparotomy, sigmoid resection, SOC: No known allergies SYS REVIEW: States she is otherwise in good health O/E awake alert, tearful vital signs are stable HEENT: Within normal Chest: Clear ABD: Soft nontender non tympanic LOCO: Intact DATA: CT scans shows a C2 Hua's type pattern of her large bowel. There appears to be some possible stenosis in her pelvis. There is no evidence of a pure obstruction. IMPRESSION: Possible sigmoid stricture PLAN: This patient was going to be admitted. I discussed it with her as she was tearful and did not want to be put in the hospital. She is not in any acute crisis and only be came in because she passed a small amount of blood per rectum. She has seen Dr. Cheung, and Dr. Spaulding in the past. She does not want to be in the hospital. I have recommended that she make an outpatient appointment with Dr. Matthew Fairchild, a colorectal surgeon in [place]. She was very thankful. I have provided her with a phone numbers, and she will call tomorrow for the earliest appointment he understands that should anything change, she is return to the emergency room. She has my office number as well as my cellphone. She is very content with this arrangement, her mother is here as well
[2019-06-19 20:49] VITALS: TEMP 98.3; O2SAT 100
[2019-06-19 20:54] VITALS: BP 145/91
== END 2019-06-19 19:53 | disposition home or self-care (01) ==
LOC: ER 12:16 → ERHOLD 18:00 → UNDOADMIN 18:00
DX: K56.699 Other intestinal obstruction unspecified as to partial versus complete obstruction (principal); F41.9 Anxiety disorder, unspecified; F32.9 Major depressive disorder, single episode, unspecified
CPT/HCPCS: 96365; 96361; 96368; 85025; 80048; 36415; 81025; 80076; 83690; 74177; 99284; Q9967; J7030; J0744

== ENCOUNTER 2019-09-05 23:32 | Emergency (ER) | payer OTHER ==
--- OUTSIDE RECORDS SUMMARY | 2019-09-05 23:33 | XMS REPORT ---
:1970 [facility] Address [address] [place] [address] Care Team Providers Name Role Phone Unavailable Unavailable Unavailable Problems This patient has no known problems. Allergies, Adverse Reactions, Alerts This patient has no known allergies or adverse reactions. Medications This patient has no known medications.
[2019-09-05] MEDS ORDERED: FAMOTIDINE 20 MG/2 ML VIAL IV ONE (23:50)
[2019-09-05] MEDS ORDERED: METHYLPREDNISOLONE 125 MG INJ ONE (23:50)
--- NOTE | 2019-09-06 00:41 | ER ---
Nurse's Notes [facility] Name: Steph Olguin Age: 49 yrs Sex: Female : 1970 Arrival Date: 09/05/2019 Time: 23:34 Bed 7 Private MD: Diagnosis: Urticaria, unspecified Presentation: 09/05 23:34 Presenting complaint: Patient states: that she was eating pistachios even though she fc had a hx of allergic reaction in the past and then she started to itch and have whelps. Transition of care: patient was not received from another setting of care. Onset of symptoms was September 05, 2019 at 16:00. Risk Assessment: Do you want to hurt yourself or someone else? Patient reports no desire to harm self or others. Initial Sepsis Screen: Does the patient meet any 2 criteria? RR > 20 per min. HR > 90 bpm. Yes Does the patient have a suspected source of infection? No. Patient's initial sepsis screen is negative. Care prior to arrival: Medication(s) given: Benadryl 100 mg at 1700 and Alleve at 2100. 23:34 Method Of Arrival: Ambulatory fc 23:34 Acuity: GRADY 3 fc Historical: - Allergies: 23:53 No Known Allergies; fc - Home Meds: 23:53 Ativan 1 mg Oral tab 1 tab 3 times per day [Active]; BuSpar Oral 10 mg twice a day fc [Active]; venlafaxine 150 mg Oral tr24 1 tab nightly [Active]; - PMHx: 23:53 Anxiety; Depression; volvulus; WPW; Panic Attacks; fc - PSHx: 23:53 colon resection; fc - Immunization history:: Last tetanus immunization: unknown. - Coronavirus screen:: The patient has NOT traveled to [place] in the past 14 days. Proceed with normal triage process as indicated. The patient has NOT had contact with known/suspected case of Coronavirus? Proceed with normal triage procedures. - Social history:: Smoking status: Patient reports the use of cigarette tobacco products, smokes one-half pack cigarettes per day, Patient/guardian denies using alcohol, street drugs. - Ebola Screening: : Patient negative for fever greater than or equal to 101.5 degrees Fahrenheit, and additional compatible Ebola Virus Disease symptoms Patient denies exposure to infectious person Patient denies travel to an Ebola-affected area in the 21 days before illness onset. Screenin:34 Abuse screen: Denies threats or abuse. Nutritional screening: No deficits noted. Tuberculosis screening: No symptoms or risk factors identified. Fall Risk None identified. Assessment: 23:48 General: Appears uncomfortable, Behavior is restless. Pain: Denies pain. Neuro: Level ea of Consciousness is awake, alert, obeys commands, Oriented to person, place, time, situation. Cardiovascular: Patient's skin is warm and dry. Respiratory: Airway is patent Respiratory effort is even, unlabored, Respiratory pattern is regular, symmetrical. Derm: Rash noted that is itchy, red, raised, urticaria. 09/06 00:49 Reassessment: Patient and/or family updated on plan of care and expected duration. Pain ea level reassessed. Patient is alert, oriented x 3, equal unlabored respirations, skin warm/dry/pink. Pt reports symptoms improved, itching has resolved. Redness has decreased and rash is subsiding. Discharge instruction given to patient, verbalized the understanding of instruction. Pt left ED ambulatory accompanied by family. Vital Signs: 09/05 23:34 BP 128 / 75; Pulse 92; Resp 24; Temp 98.2(O); Pulse Ox 100% on R/A; Weight 79.38 kg (R); Height 5 ft. 11 in. (180.34 cm) (R); Pain 0/10; 09/06 00:00 BP 120 / 68; Pulse 88; Resp 18; Pulse Ox 98% on R/A; ea 09/05 23:34 Body Mass Index 24.41 (79.38 kg, 180.34 cm) ED Course: 09/05 23:34 Patient arrived in ED. jg7 23:34 Arm band placed on Patient placed in an exam room, on a stretcher. 23:34 Patient has correct armband on for positive identification. Bed in low position. Call light in reach. Side rails up X 1. classroom monitor on. Pulse ox on. NIBP on. 23:34 No provider procedures requiring assistance completed. 23:41 Tray Jarvis MD is Attending Physician. tw4 23:48 Triage completed. 23:52 Inserted saline lock: 20 gauge in left hand, using aseptic technique. Blood collected. ds4 0212 00:48 Alana Olivia, RN is Primary Nurse. ea 00:50 IV discontinued, intact, bleeding controlled, No redness/swelling at site. Pressure ea dressing applied. Administered Medications: 09/05 23:50 Drug: SOLU-Medrol 125 mg Route: IVP; Site: left antecubital; ea 09/06 00:50 Follow up: Response: No adverse reaction ea 09/05 23:50 Drug: Pepcid 20 mg Route: IVP; Site: left antecubital; ea 09/06 00:50 Follow up: Response: No adverse reaction ea Outcome: 00:40 Discharge ordered by . [facility] 00:51 Discharged to home ambulatory, with family. ea 00:51 Condition: stable 00:51 Discharge instructions given to patient, Instructed on discharge instructions, follow up and referral plans. medication usage, Demonstrated understanding of instructions, follow-up care, medications, Prescriptions given X 2. 00:52 Patient left the ED. ea Signatures: Ursula Vargas RN Andres Farr 4 Alana Olivia, RN Tray Yang ea, MD MD tw4 Blanche Lezama jg7
--- NOTE | 2019-09-07 00:55 | EDPHYS ---
Physician Documentation [facility] Name: Steph Olguin Age: 49 yrs Sex: Female : 1970 Arrival Date: 09/05/2019 Time: 23:34 Bed 7 Private MD: ED Physician Tray Jarvis HPI: 09/06 05:19 This 49 yrs old Female presents to ER via Ambulatory with complaints of tw4 Shortness Of Breath, Allergic Reaction. 05:19 This 49 yrs old Female presents to ER via Ambulatory with complaints of tw4 Shortness Of Breath, Allergic Reaction. 05:19 The patient presents with diffuse swelling, shortness of breath. Onset: The tw4 symptoms/episode began/occurred just prior to arrival. Associated signs and symptoms: The patient has no apparent associated signs or symptoms. Possible causes: pistachios. At home the patient or guardian has treated the symptoms with Benadryl. Severity of symptoms: At their worst the symptoms were moderate in the emergency department the symptoms are unchanged. The patient has experienced a previous episode. The patient has not recently seen a physician. Historical: - Allergies: 09/05 23:53 No Known Allergies; fc - Home Meds: 23:53 Ativan 1 mg Oral tab 1 tab 3 times per day [Active]; BuSpar Oral 10 mg twice a day fc [Active]; venlafaxine 150 mg Oral tr24 1 tab nightly [Active]; - PMHx: 23:53 Anxiety; Depression; volvulus; WPW; Panic Attacks; fc - PSHx: 23:53 colon resection; fc - Immunization history:: Last tetanus immunization: unknown. - Coronavirus screen:: The patient has NOT traveled to [place] in the past 14 days. Proceed with normal triage process as indicated. The patient has NOT had contact with known/suspected case of Coronavirus? Proceed with normal triage procedures. - Social history:: Smoking status: Patient reports the use of cigarette tobacco products, smokes one-half pack cigarettes per day, Patient/guardian denies using alcohol, street drugs. - Ebola Screening: : Patient negative for fever greater than or equal to 101.5 degrees Fahrenheit, and additional compatible Ebola Virus Disease symptoms Patient denies exposure to infectious person Patient denies travel to an Ebola-affected area in the 21 days before illness onset. ROS: 09/06 05:19 Constitutional: Negative for fever, chills, and weight loss, Eyes: Negative for injury, tw4 pain, redness, and discharge, Cardiovascular: Negative for chest pain, palpitations, and edema, Respiratory: Negative for shortness of breath, cough, wheezing, and pleuritic chest pain, Abdomen/GI: Negative for abdominal pain, nausea, vomiting, diarrhea, and constipation, Back: Negative for injury and pain. Neuro: Negative for headache, weakness, numbness, tingling, and seizure. Skin: Positive for rash, diffusely. Exam: 05:19 Constitutional: This is a well developed, well nourished patient who is awake, alert, tw4 and in no acute distress. Head/Face: Normocephalic, atraumatic. Chest/axilla: Normal chest wall appearance and motion. Nontender with no deformity. No lesions are appreciated. Cardiovascular: Regular rate and rhythm with a normal S1 and S2. No gallops, murmurs, or rubs. Normal PMI, no JVD. No pulse deficits. Respiratory: Lungs have equal breath sounds bilaterally, clear to auscultation and percussion. No rales, rhonchi or wheezes noted. No increased work of breathing, no retractions or nasal flaring. Abdomen/GI: Soft, non-tender, with normal bowel sounds. No distension or tympany. No guarding or rebound. No evidence of tenderness throughout. Back: No spinal tenderness. No costovertebral tenderness. Full range of motion. MS/ Extremity: Pulses equal, no cyanosis. Neurovascular intact. Full, normal range of motion. Neuro: Awake and alert, GCS 15, oriented to person, place, time, and situation. Cranial nerves II-XII grossly intact. Motor strength 5/5 in all extremities. Sensory grossly intact. Cerebellar exam normal. Normal gait. 05:19 Skin: urticaria. Vital Signs: 09/05 23:34 BP 128 / 75; Pulse 92; Resp 24; Temp 98.2(O); Pulse Ox 100% on R/A; Weight 79.38 kg fc (R); Height 5 ft. 11 in. (180.34 cm) (R); Pain 0/10; 09/06 00:00 BP 120 / 68; Pulse 88; Resp 18; Pulse Ox 98% on R/A; ea 09/05 23:34 Body Mass Index 24.41 (79.38 kg, 180.34 cm) fc MDM: 09/05 23:41 Patient medically screened. tw4 09/06 05:22 Differential diagnosis: anaphylaxis, bronchospasm, urticaria. Data reviewed: vital tw4 signs, nurses notes. Data interpreted: Pulse oximetry: Interpretation: normal. Counseling: I had a detailed discussion with the patient and/or guardian regarding: the historical points, exam findings, and any diagnostic results supporting the discharge/admit diagnosis. Medication response: solumedrol. Response to treatment: and as a result, I will discharge patient. Special discussion: I discussed with the patient/guardian in detail that at this point there is no indication for admission to the hospital. It is understood, however, that if the symptoms persist or worsen the patient needs to return immediately for re-evaluation. Administered Medications: 09/05 23:50 Drug: SOLU-Medrol 125 mg Route: IVP; Site: left antecubital; 09/06 00:50 Follow up: Response: No adverse reaction 09/05 23:50 Drug: Pepcid 20 mg Route: IVP; Site: left antecubital; 09/06 00:50 Follow up: Response: No adverse reaction Disposition: 09/06/19 00:40 Discharged to Home. Impression: Urticaria, unspecified. - Condition is Stable. - Discharge Instructions: Allergies, Adult, Hives, [id number], Allergies, [id number]. - Prescriptions for Medrol (Andi) 4 mg Oral Tablets, Dose Pack - take 1 tablet by ORAL route as directed - follow package instructions; 1 packet. Pepcid 20 mg Oral Tablet - take 1 tablet by ORAL route once daily; 20 tablet. - Medication Reconciliation Form, Thank You Letter, Antibiotic Education, Prescription Opioid Use form. - Follow up: Private Physician; When: Upon discharge from the Emergency Department; Reason: If symptoms return, Recheck today's complaints, Continuance of care, Re-evaluation by your physician. - Problem is new. - Symptoms have improved. Signatures: Ursula Vargas RN RN fc Antunez, Elena, RN RN ea Wadley, Terrence, MD MD tw4 Corrections: (The following items were deleted from the chart) 00:52 00:40 09/06/2019 00:40 Discharged to Home. Impression: Urticaria, unspecified. ea Condition is Stable. Forms are Medication Reconciliation Form, Thank You Letter, Antibiotic Education, Prescription Opioid Use. Follow up: Private Physician; When: Upon discharge from the Emergency Department; Reason: If symptoms return, Recheck today's complaints, Continuance of care, Re-evaluation by your physician. Problem is new. Symptoms have improved. tw4
[2019-09-07 14:43] VITALS: BP 128/75; TEMP 98.2; O2SAT 100
== END 2019-09-06 00:52 | disposition home or self-care (01) ==
LOC: ER 23:32
DX: R21 Rash and other nonspecific skin eruption (principal); L50.9 Urticaria, unspecified; F34.1 Dysthymic disorder; F17.210 Nicotine dependence, cigarettes, uncomplicated
CPT/HCPCS: 96375; 96374; 99284; J2930

== ENCOUNTER 2019-11-29 16:05 | Observation (INO) | payer OTHER ==
--- OUTSIDE RECORDS SUMMARY | 2019-11-29 16:07 | XMS REPORT ---
:1970 Author Organization [facility] t Address [address] [place] [id number] Care Team Providers Name Role Phone Unavailable Unavailable Unavailable Problems This patient has no known problems. Allergies, Adverse Reactions, Alerts This patient has no known allergies or adverse reactions. Medications This patient has no known medications.
[2019-11-29] MEDS ORDERED: MORPHINE 2 MG/ML SYR ONE ×2 (18:31→19:09)
[2019-11-29] MEDS ORDERED: ONDANSETRON 4 MG/2 ML VIAL ONE (18:31)
[2019-11-29 18:33] LABS: Absolute Lymphocytes (CBC) 1.9 K/uL (0.7-4.9); Basophils % 0.3 % (0-1.3); Hematocrit 35.9 % (36.0-45.0); Lymphocytes % 15.3 % (15.3-44.8); MPV 10.3 fL (7.6-11.3); RBC Red Blood Cell Count 3.99 M/uL (3.86-4.86)
[2019-11-29 18:34] LABS: Protime INR 0.96
[2019-11-29 18:49] LABS: ALT/SGPT 22 U/L (12-78); AST/SGOT 19 U/L (15-37); Albumin 3.5 g/dL (3.4-5.0); Alkaline Phosphatase 66 U/L (45-117); BUN Blood Urea Nitrogen 15 mg/dL (7-18); Bicarbonate 27 mmol/L (21-32); Bilirubin Direct < 0.1 mg/dL (0-0.2); Bilirubin Total 0.2 mg/dL (0.2-1.0); Glucose Level 191 mg/dL (74-106); NT PRO-BNP 924 pg/mL (<125); Potassium 3.5 mmol/L (3.5-5.1); Protein, Total 7.2 g/dL (6.4-8.2); Sodium Level 136 mmol/L (136-145); Troponin I 0.05 ng/mL (0.0-0.045)
[2019-11-29] MEDS ORDERED: LORazepam 2 MG/ML VIAL ONE (18:49)
[2019-11-29] MEDS ORDERED: LIDOCAINE VISCOUS 2% SOLN 15 ML UDC ONE ×2 (19:47→21:13)
[2019-11-29] MEDS ORDERED: MAGNE/ALUM HYDROXD 30 ML UCUP ONE ×2 (19:47→21:13)
--- NOTE | 2019-11-29 20:14 | RAD REPORT ---
EXAM DESCRIPTION: CT - Chest For Pe Angio - 11/29/2019 8:06 pm CLINICAL HISTORY: Chest pain. chest pain COMPARISON: Abdomen Pelvis W Contrast dated 11/29/2019 TECHNIQUE: CT angiogram of the pulmonary arteries was performed with MIP. All CT scans are performed using dose optimization technique as appropriate and may include automated exposure control or mA/KV adjustment according to patient size. FINDINGS: No evidence of pulmonary thromboembolism. No acute aortic finding demonstrated. Linear opacities are present in both lung bases likely representing subsegmental atelectasis. Mild in terstitial pulmonary edema. No significant pericardial or pleural fluid. Small hiatal hernia is present. No concerning bony finding. IMPRESSION: No evidence of pulmonary thromboembolism. Mild interstitial pulmonary edema is present with linear subsegmental atelectasis in both lung bases.
--- NOTE | 2019-11-29 20:17 | RAD REPORT ---
EXAM DESCRIPTION: CTAbdomen Pelvis W Contrast - 11/29/2019 8:07 pm CLINICAL HISTORY: Abdominal pain. BELLY PAIN COMPARISON: Abdomen Pelvis W Contrast dated 06/19/2019 TECHNIQUE: Biphasic CT imaging of the abdomen and pelvis was performed with 100 ml non-ionic IV cont rast. All CT scans are performed using dose optimization technique as appropriate and may include automated exposure control or mA/KV adjustment according to patient size. FINDINGS: Linear subsegmental atelectasis is present in both lung bases.Small to moderate hiatal her kacy is noted. The liver demonstrates no focal mass or biliary dilatation. The gallbladder demonstrates mild pericho lecystic fluid. The spleen, pancreas, adrenal glands and kidneys are within normal limits. No bowel obstruction, free air, free fluid or abscess. A large amount of stool is present within the sigmoid colon luminal caliber change of the sigmoid colon is present at the mid aspect which could re present a stricture. Postsurgical changes are also present in the region. The appendix is not identif ied as a discrete structure, however, no secondary findings of appendicitis are identified. No evid ence of significant lymphadenopathy. 6 cm right adnexal cyst. No suspicious bony findings. IMPRESSION: Prominent fecal retention in the colon is seen with postsurgical changes in the sigmoid colon. There is particularly notable stool retention in a dilated sigmoid colon where a burton in nena danish of the lumen is present which may indicate a stricture. Followup nonemergent colonoscopy assessme nt would be suggested. Possible pericholecystic fluid. If the patient has right upper quadrant symptomology, consider gallbl adder ultrasound followup. 6 cm mild adnexal cyst.
[2019-11-29] MEDS ORDERED: FAMOTIDINE 20 MG/2 ML VIAL IV ONE (20:38)
[2019-11-29] MEDS ORDERED: MORPHINE 4 MG/ML SYR IV PRN (21:02)
[2019-11-29] MEDS ORDERED: ACETAMINOPHEN 500 MG TAB PO PRN (21:02)
[2019-11-29] MEDS ORDERED: ASPIRIN 81 MG CHEWABLE TABLET ONE (21:13)
--- NOTE | 2019-11-29 21:14 | RAD REPORT ---
EXAM DESCRIPTION: US - Abdomen Exam Limited - 11/29/2019 9:07 pm CLINICAL HISTORY: chest pain Abdominal pain COMPARISON: No comparisons FINDINGS: The gallbladder demonstrates several shadowing gallstones. Gallbladder wall appears thicke zia to 7-8 mm. The common bile duct is normal measuring 4 mm. The liver demonstrates no findings of intrahepatic biliary dilatation. IMPRESSION: Cholelithiasis with moderate gallbladder wall thickening. In the correct clinical settin g, this can represent acute cholecystitis.
[2019-11-29] MEDS ORDERED: CIPROFLOXACIN 400mg IV 400 MG/200 ML BAG IV ONE (21:26)
[2019-11-29] MEDS ORDERED: METRONIDAZOLE 500mg IVPB 500 MG/100 ML BAG IV ONE (21:26)
[2019-11-29] MEDS ORDERED: PIPER/TAZO/NS 3.375gm 6.750 GM/200 ML BAG ONE (22:07)
[2019-11-29] MEDS ORDERED: FENTANYL CITR 100 MCG/2 ML ONE (22:40)
[2019-11-29] MEDS ORDERED: PROMETHAZINE INJ 25 MG/ML AMP ONE (22:40)
[2019-11-29 22:58] VITALS: BMI 32.9
[2019-11-29 23:25] VITALS: O2SAT 100
[2019-11-29] MEDS: METRONIDAZOLE 500mg IVPB 500 MG/100 ML BAG IV SCH (23:46)
--- NOTE | 2019-11-30 03:47 | ER ---
Nurse's Notes [facility] Name: Steph Olguin Age: 49 yrs Sex: Female : 1970 Arrival Date: 11/29/2019 Time: 16:07 Bed 23 Private MD: Diagnosis: Chest pain, unspecified;Acute cholecystitis Presentation: 11/28 16:21 Chief complaint: Patient states: Pain, described as sharp, achy, sore, from neck down jl7 to substernal area with respirations and movement, started yesterday evening. Reports having an anxiety attack yesterday prior to the pain and felt palpitations at that time. Denies N/V/D. Coronavirus screen: Proceed with normal triage. Patient denies a cough. Patient denies shortness of breath or difficulty breathing. Patient denies measured and/or subjective temperature greater than 100.4F prior to today's visit. Patient denies travel on a cruise ship or to a country the [facility] currently lists as an affected area. Patient denies contact with known and/or suspected case of COVID-19. Ebola Screen: No symptoms or risks identified at this time. Initial Sepsis Screen: Does the patient meet any 2 criteria? No. Patient's initial sepsis screen is negative. Does the patient have a suspected source of infection? No. Patient's initial sepsis screen is negative. Risk Assessment: Do you want to hurt yourself or someone else? Patient reports no desire to harm self or others. Onset of symptoms was November 28, 2019. 16:21 Method Of Arrival: Ambulatory jl7 16:21 Acuity: GRADY 3 jl7 Triage Assessment: 16:28 General: Appears in no apparent distress. uncomfortable, Behavior is calm, cooperative, jl7 appropriate for age. Pain: Complains of pain in neck Pain radiates to diaphragm Pain currently is 8 out of 10 on a pain scale. Quality of pain is described as aching, dull, sharp, Pain began 1 day ago. Is continuous. Neuro: Level of Consciousness is awake, alert, obeys commands, Oriented to person, place, time, situation. Cardiovascular: Patient's skin is warm and dry. Respiratory: Airway is patent Respiratory effort is even, unlabored, Respiratory pattern is regular, symmetrical. Derm: Skin is pink, warm \\T\\ dry. 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 - Social history:: Smoking status: Patient reports the use of cigarette tobacco products, smokes one pack cigarettes per day. Screenin:02 Abuse screen: Denies threats or abuse. Denies injuries from another. Nutritional ls4 screening: No deficits noted. Tuberculosis screening: No symptoms or risk factors identified. Fall Risk None identified. Assessment: 17:56 Pain: Complains of pain in chest Pain currently is 8 out of 10 on a pain scale. Quality ls4 of pain is described as pressure, Pain began 1 day ago. Is continuous. Neuro: Level of Consciousness is awake, alert, obeys commands, Oriented to person, place, time, situation, Presetter Operator are equal bilaterally Moves all extremities. Gait is steady, Speech is normal, Facial symmetry appears normal, Pupils are PERRLA, Intact. 18:00 General: Appears in no apparent distress. uncomfortable, Behavior is calm, cooperative, jb4 appropriate for age. Pain: Pain does not radiate. Cardiovascular: Heart tones S1 S2 present Patient's skin is warm and dry. Rhythm is sinus rhythm. Respiratory: Airway is patent Respiratory effort is even, unlabored, Respiratory pattern is regular, symmetrical, Breath sounds are clear bilaterally. GI: No signs and/or symptoms were reported involving the gastrointestinal system. : No signs and/or symptoms were reported regarding the genitourinary system. EENT: No signs and/or symptoms were reported regarding the EENT system. Derm: Skin is intact, Skin is pink, warm \\T\\ dry. Musculoskeletal: Circulation, motion, and sensation intact. Range of motion: intact in all extremities. 18:40 Reassessment: Pt reports pain is better but continues to be very intense. Provider jb4 notified, see MAR for orders. 18:48 Reassessment: Patient appears in no apparent distress at this time. Patient and/or jb4 family updated on plan of care and expected duration. Pain level reassessed. Patient is alert, oriented x 3, equal unlabored respirations, skin warm/dry/pink. Pt reports pain has decreased to an 8/10, requesting more pain medication,provider notified, see MAR for orders. 19:40 Reassessment: Patient appears in no apparent distress at this time. Patient and/or jb4 family updated on plan of care and expected duration. Pain level reassessed. Patient is alert, oriented x 3, equal unlabored respirations, skin warm/dry/pink. PT reports pain is unchanged, provider notified see MAR for orders. 19:52 Reassessment: PT to CT. jb4 20:18 Reassessment: Patient appears in no apparent distress at this time. Patient and/or jb4 family updated on plan of care and expected duration. Pain level reassessed. Patient is alert, oriented x 3, equal unlabored respirations, skin warm/dry/pink. PT states " the Lidocaine in the GI cocktail helped a lot, but its still and 8/10. Its a sever burning that goes from my stomach to my throat. I normally take omeprazole for my stomach acid but today I haven't." provider notified, see MAR for orders. 20:45 Reassessment: Labs shown to ER provider. jb4 23:02 Reassessment: Zosyn 3.375 sent with patient to be administered in am. ls4 Vital Signs: 16:21 BP 113 / 63; Pulse 81; Resp 16 S; Temp 98.6(O); Pulse Ox 98% on R/A; Pain 8/10; jl7 17:54 BP 132 / 67; Pulse 84; Resp 14; Temp 98.2(O); Pulse Ox 99% on R/A; Pain 8/10; ls4 19:34 BP 133 / 84; Pulse 91; Resp 22; Pulse Ox 100% on R/A; jb4 22:50 BP 116 / 74; Pulse 91; Resp 20; Temp 97.9(O); Pulse Ox 99% on R/A; Pain 8/10; ls4 ED Course: 16:07 Patient arrived in ED. ag5 16:26 Triage completed. jl7 16:28 Arm band placed on right wrist. jl7 16:35 EKG completed in triage. Results shown to MD. jl7 17:42 Drew Reyes, RN is Primary Nurse. jb4 17:43 Piyush Hernandez PA is PHCP. [facility] 17:43 Bandar Walker MD is Attending Physician. [facility] 17:43 Patient has correct armband on for positive identification. ls4 17:43 monitoring tech on. Pulse ox on. NIBP on. Warm blanket given. Verbal reassurance given. ls4 Diet: Patient is NPO. 17:43 No provider procedures requiring assistance completed. Patient maintains SpO2 ls4 saturation greater than 95% on room air. 17:55 Initial lab(s) drawn, by me, sent to lab. Inserted saline lock: 18 gauge in right jb4 antecubital area, using aseptic technique. Blood collected. 20:58 Kenyon Lawrence MD is Hospitalizing Provider. [facility] 22:53 Patient admitted, IV remains in place. ls4 Administered Medications: 18:25 Drug: Zofran (Ondansetron) 4 mg Route: IVP; Site: right antecubital; jb4 19:25 Follow up: Response: No adverse reaction jb4 18:28 Drug: morphine 2 mg {Note: Rass score 0.} Route: IVP; Site: right antecubital; jb4 18:45 Follow up: Response: No adverse reaction; Pain is decreased; RASS: Alert and Calm (0) jb4 18:45 Drug: Ativan 1 mg Route: IVP; Site: right antecubital; jb4 19:45 Follow up: Response: No adverse reaction; Anxiety decreased jb4 19:07 Drug: morphine 2 mg Route: IVP; Site: left antecubital; ls4 19:35 Follow up: Response: No adverse reaction; Pain is unchanged, physician notified; RASS: [facility] Alert and Calm (0) 19:50 Drug: GI Cocktail without - (Maalox Suspension 30 ml, Lidocaine Liquid 2 % 15 jb4 ml) Route: PO; 20:25 Follow up: Response: No adverse reaction; Pain is decreased jb4 20:36 Drug: Pepcid 20 mg Route: IVP; Site: right antecubital; jb4 21:32 Follow up: Response: No adverse reaction; Marked relief of symptoms ls4 21:10 Drug: GI Cocktail without - (Maalox Suspension 30 ml, Lidocaine Liquid 2 % 15 ls4 ml) Route: PO; 21:31 Follow up: Response: No adverse reaction; Marked relief of symptoms ls4 21:25 Drug: Cipro 400 mg Volume: 200 ml; Route: IVPB; Infused Over: 60 mins; Site: right ls4 antecubital; 21:55 Follow up: IV Status: Completed infusion; IV Intake: 200ml ls4 21:30 Drug: Flagyl 500 mg Volume: 100 ml; Route: IVPB; Rate: 200 ml/hr; Infused Over: 30 ls4 mins; Site: right antecubital; 22:00 Follow up: Response: No adverse reaction; IV Status: Completed infusion; IV Intake: ls4 100ml 21:31 Not Given (Duplicate Order): Aspirin Chewable Tablet 324 mg PO once; 81 mg tablets x 4 ls4 22:29 Drug: Zosyn 3.375 grams Route: IVPB; Infused Over: 60 mins; Site: right antecubital; ls4 22:55 Follow up: IV Status: Infusion continued upon admission ls4 22:29 Not Given (Patient Refused): Ativan 1 mg IVP once ls4 22:38 Drug: Phenergan 12.5 mg Route: IVP; Site: right antecubital; ls4 22:54 Follow up: Response: No adverse reaction; Marked relief of symptoms ls4 22:40 Drug: fentaNYL (PF) 50 mcg Route: IVP; Site: right antecubital; ls4 22:55 Follow up: Response: No adverse reaction; Marked relief of symptoms ls4 Intake: 21:55 IV: 200ml; Total: 200ml. ls4 22:00 IV: 100ml; Total: 300ml. ls4 Outcome: 20:58 Decision to Hospitalize by Provider. sabra 22:51 Admitted to Med/surg accompanied by tech, via wheelchair, room 205, with chart, Report ls4 called to daniel ASHER 22:51 Condition: unchanged 22:51 Discharge instructions given to patient, Instructed on the need for admit, Demonstrated understanding of instructions. 23:08 Patient left the ED. ls4 Signatures: Piyush Hernandez PA PA jmm Bryson, James, RN RN jb4 Tavon Tadeo, RN RN jl7 Keyana Licea, RN RN ls4 Mervat Rubin ag5 Corrections: (The following items were deleted from the chart) 19:37 19:00 Reassessment: Patient appears in no apparent distress at this time. Patient jb4 and/or family updated on plan of care and expected duration. Pain level reassessed. Patient is alert, oriented x 3, equal unlabored respirations, skin warm/dry/pink. Pt reports pain has decreased to an 8/10 jb4 19:46 19:00 Reassessment: Patient appears in no apparent distress at this time. Patient jb4 and/or family updated on plan of care and expected duration. Pain level reassessed. Patient is alert, oriented x 3, equal unlabored respirations, skin warm/dry/pink. Pt reports pain has decreased to an 8/10 jb4 20:30 18:00 Pain: Pain does not radiate. jb4 jb4 21:31 21:11 Aspirin Chewable Tablet 324 mg PO ls4 ls4 21:31 21:31 Response: No adverse reaction; Marked relief of symptoms ls4 ls4
--- NOTE | 2019-11-30 03:47 | EDPHYS ---
Physician Documentation [facility] Name: Steph Olguin Age: 49 yrs Sex: Female : 1970 Arrival Date: 11/29/2019 Time: 16:07 Bed 23 Private MD: ED Physician Bandar Walker HPI: 11/28 17:56 This 49 yrs old Female presents to ER via Ambulatory with complaints of Chest jmm Pain. 17:56 The patient or guardian reports chest pain that is located primarily in the substernal [facility] area, anterior chest wall. Onset: gradually, last night. The pain does not radiate. The chest pain is described as burning, sharp. Duration: The patient or guardian reports a single episode, that is still ongoing. This is a 49 year old female with a history of anxiety that presents to the ED with complaints of chest pain beginning last night. Pain has been constant. Patient denies vomiting. Pain is exacerbated by deep inspiration. . 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 - Social history:: Smoking status: Patient reports the use of cigarette tobacco products, smokes one pack cigarettes per day. ROS: 17:56 Constitutional: Negative for fever, chills, and weight loss. jmm 17:56 Cardiovascular: Positive for chest pain. 17:56 Respiratory: Positive for shortness of breath. 17:56 All other systems are negative. Exam: 17:56 Constitutional: This is a well developed, well nourished patient who is awake, alert, jmm and in no acute distress. Head/Face: atraumatic. Eyes: EOMI, no conjunctival erythema appreciated ENT: Moist Mucus Membranes Neck: Trachea midline, Supple Chest/axilla: Normal chest wall appearance and motion. Cardiovascular: Regular rate and rhythm. No edema appreciated Respiratory: Normal respirations, no respiratory distress appreciated Abdomen/GI: Non distended, soft Back: Normal ROM Skin: General appearance color normal MS/ Extremity: Moves all extremities, no obvious deformities appreciated, no edema noted to the lower extremities Neuro: Awake and alert, normal gait Psych: Behavior is normal, Mood is normal, Patient is cooperative and pleasant 17:56 Cardiovascular: Rate: normal, Rhythm: regular, Pulses: no pulse deficits are appreciated. Vital Signs: 16:21 BP 113 / 63; Pulse 81; Resp 16 S; Temp 98.6(O); Pulse Ox 98% on R/A; Pain 8/10; jl7 17:54 BP 132 / 67; Pulse 84; Resp 14; Temp 98.2(O); Pulse Ox 99% on R/A; Pain 8/10; ls4 19:34 BP 133 / 84; Pulse 91; Resp 22; Pulse Ox 100% on R/A; jb4 22:50 BP 116 / 74; Pulse 91; Resp 20; Temp 97.9(O); Pulse Ox 99% on R/A; Pain 8/10; ls4 MDM: 17:50 Patient medically screened. [facility] 20:56 Data reviewed: vital signs, nurses notes. [facility] 20:57 The patient was given aspirin in the Emergency Department. Data reviewed: lab test [facility] result(s), EKG, radiologic studies, CT scan. ED course: I discussed the patient with Dr. Lawrence whom accepted admission. . 11/28 17:55 Order name: Basic Metabolic Panel [facility] 11/28 17:55 Order name: CBC with Diff [facility] 11/28 17:55 Order name: LFT's [facility] 11/28 17:55 Order name: Magnesium [facility] 11/28 17:55 Order name: NT PRO-BNP [facility] 11/28 17:55 Order name: PT-INR [facility] 11/28 17:55 Order name: Troponin (emerg Dept Use Only) [facility] 11/28 17:55 Order name: CT Chest For PE Angio [facility] 11/28 20:21 Order name: US Abdomen Limited [facility] 11/28 17:55 Order name: EKG; Complete Time: 03:54 [facility] 11/28 17:55 Order name: Cardiac monitoring; Complete Time: 17:59 [facility] 11/28 17:55 Order name: EKG - Nurse/Tech; Complete Time: 17:59 [facility] 11/28 17:55 Order name: IV Saline Lock; Complete Time: 17:59 [facility] 11/28 17:55 Order name: Labs collected and sent; Complete Time: 18:00 [facility] 11/28 17:55 Order name: O2 Per Protocol; Complete Time: 18:00 [facility] 11/28 17:55 Order name: O2 Sat Monitoring; Complete Time: 17:59 jmm Administered Medications: 18:25 Drug: Zofran (Ondansetron) 4 mg Route: IVP; Site: right antecubital; jb4 19:25 Follow up: Response: No adverse reaction jb4 18:28 Drug: morphine 2 mg {Note: Rass score 0.} Route: IVP; Site: right antecubital; jb4 18:45 Follow up: Response: No adverse reaction; Pain is decreased; RASS: Alert and Calm (0) jb4 18:45 Drug: Ativan 1 mg Route: IVP; Site: right antecubital; jb4 19:45 Follow up: Response: No adverse reaction; Anxiety decreased jb4 19:07 Drug: morphine 2 mg Route: IVP; Site: left antecubital; ls4 19:35 Follow up: Response: No adverse reaction; Pain is unchanged, physician notified; RASS: [facility] Alert and Calm (0) 19:50 Drug: GI Cocktail without - (Maalox Suspension 30 ml, Lidocaine Liquid 2 % 15 jb4 ml) Route: PO; 20:25 Follow up: Response: No adverse reaction; Pain is decreased jb4 20:36 Drug: Pepcid 20 mg Route: IVP; Site: right antecubital; jb4 21:32 Follow up: Response: No adverse reaction; Marked relief of symptoms ls4 21:10 Drug: GI Cocktail without - (Maalox Suspension 30 ml, Lidocaine Liquid 2 % 15 ls4 ml) Route: PO; 21:31 Follow up: Response: No adverse reaction; Marked relief of symptoms ls4 21:25 Drug: Cipro 400 mg Volume: 200 ml; Route: IVPB; Infused Over: 60 mins; Site: right ls4 antecubital; 21:55 Follow up: IV Status: Completed infusion; IV Intake: 200ml ls4 21:30 Drug: Flagyl 500 mg Volume: 100 ml; Route: IVPB; Rate: 200 ml/hr; Infused Over: 30 ls4 mins; Site: right antecubital; 22:00 Follow up: Response: No adverse reaction; IV Status: Completed infusion; IV Intake: ls4 100ml 21:31 Not Given (Duplicate Order): Aspirin Chewable Tablet 324 mg PO once; 81 mg tablets x 4 ls4 22:29 Drug: Zosyn 3.375 grams Route: IVPB; Infused Over: 60 mins; Site: right antecubital; ls4 22:55 Follow up: IV Status: Infusion continued upon admission ls4 22:29 Not Given (Patient Refused): Ativan 1 mg IVP once ls4 22:38 Drug: Phenergan 12.5 mg Route: IVP; Site: right antecubital; ls4 22:54 Follow up: Response: No adverse reaction; Marked relief of symptoms ls4 22:40 Drug: fentaNYL (PF) 50 mcg Route: IVP; Site: right antecubital; ls4 22:55 Follow up: Response: No adverse reaction; Marked relief of symptoms ls4 Disposition: 11/29 08:22 Co-signature as Attending Physician, Bandar Walker MD I agree with the assessment and kdr plan of care. Disposition: 11/29/19 20:58 Hospitalization ordered by Kenyon Lawrence for Observation. Preliminary diagnosis are Chest pain, unspecified, Acute cholecystitis. - Bed requested for Telemetry/MedSurg (observation). - Status is Observation. ls4 - Condition is Stable. - Problem is new. - Symptoms are unchanged. Signatures: Dispatcher [employer] EDMS Bandar Walker MD MD kdr Mickail, Joel, PA PA [facility] Stephania Webb, RN RN tl1 Drwe Reyes, RN RN jb4 Tavon Tadeo RN RN jl7 Keyana Licea, LB RN ls4 Corrections: (The following items were deleted from the chart) 11/28 21:15 20:58 Hospitalization Ordered by Kenyon Lawrence MD for Observation. Preliminary [facility] diagnosis is Chest pain, unspecified. Bed requested for Telemetry/MedSurg (observation). Status is Observation. Condition is Stable. Problem is new. Symptoms are unchanged. [facility] 21:24 21:15 11/29/2019 20:58 Hospitalization Ordered by Kenyon Lawrence MD for Observation. tl1 Preliminary diagnosis is Chest pain, unspecified; Acute cholecystitis. Bed requested for Telemetry/MedSurg (observation). Status is Observation. Condition is Stable. Problem is new. Symptoms are unchanged. [facility] 23:08 21:24 11/29/2019 20:58 Hospitalization Ordered by Kenyon Lawrence MD for Observation. ls4 Preliminary diagnosis is Chest pain, unspecified; Acute cholecystitis. Bed requested for Telemetry/MedSurg (observation). Status is Observation. Condition is Stable. Problem is new. Symptoms are unchanged. tl1
[2019-11-30] MEDS: METRONIDAZOLE 500mg IVPB 500 MG/100 ML BAG IV SCH (04:52)
[2019-11-30] MEDS: ALPRAZOLAM 0.25 MG TABLET PO PRN ×2 (04:59→13:28)
[2019-11-30 05:18] LABS: Absolute Lymphocytes (CBC) 1.7 K/uL (0.7-4.9); Basophils % 0.4 % (0-1.3); Hematocrit 37.1 % (36.0-45.0); Lymphocytes % 13.3 % (15.3-44.8); RBC Red Blood Cell Count 4.13 M/uL (3.86-4.86)
[2019-11-30 05:34] LABS: Potassium 4.1 mmol/L (3.5-5.1)
[2019-11-30] MEDS ORDERED: Levofloxacin500mg IV 500 MG/100 ML BAG IV SCH (06:00)
[2019-11-30] MEDS: METOPROLOL TAR 50 MG TAB PO SCH ×2 (06:00→08:11)
--- NOTE | 2019-11-30 08:09 | P.HP ---
Certification for Inpatient Patient admitted to: Inpatient With expected LOS: >2 Midnights Patient will require the following post-hospital care: None Practitioner: I am a practitioner with admitting privileges, knowledge of patient current condition, hospital course, and medical plan of care. Services: Services provided to patient in accordance with Admission requirements found in Title 42 Section 412.3 of the Code of Federal Regulations Patient History Date of Service: 11/29/19 Reason for admission: Chest pain; right upper quadrant tenderness; epigastric tenderness History of Present Illness: Patient is a 49-year-old female came to the hospital with chest discomfort. Pain was mainly is sternal region in the epigastric region. Patient also has some pain in the right upper quadrant. She was seen in the emergency room and her initial troponin was 0.05. She denies any prior history of cardiac disease and no risk factors. Patient denies any dyspnea except on deep inspiration she has some right quadrant tenderness. Patient's ultrasound revealed acute cholecystitis. Patient was admitted to the hospital for further evaluation. Allergies omeprazole Allergy (Verified 11/29/19 19:41) Hives/Rash Home Medications: Buspirone HCl [Buspar] 30 mg PO DAILY 11/29/19 LORazepam [Ativan*] 1 mg PO TID 11/29/19 Omeprazole 20 mg PO DAILY 11/29/19 Venlafaxine HCl [Effexor*] 75 mg PO DAILY 11/29/19 - Past Medical/Surgical History Has patient received pneumonia vaccine in the past: No Diabetic: No -: Anxiety -: Depression -: Volvulus -: Colon Resection - Family History Father Medical History: Lung disease Mother Medical History: Hypertension, Diabetes - Social History Smoking Status: Current every day smoker Alcohol use: Yes CD- Drugs: No Caffeine use: Yes Place of Residence: Home Review of Systems 10-point ROS is otherwise unremarkable Physical Examination - Vital Signs Temperature: 98.1 F Blood Pressure: 131/66 Pulse: 102 Respirations: 18 Pulse Ox (%): 97 - Physical Exam General: Alert, In no apparent distress, Oriented x3 HEENT: Atraumatic, PERRLA, Mucous membr. moist/pink, EOMI, Sclerae nonicteric Neck: Supple, 2+ carotid pulse no bruit, No LAD, Without JVD or thyroid abnormality Respiratory: Clear to auscultation bilaterally, Normal air movement Cardiovascular: Regular rate/rhythm, Normal S1 S2, No murmurs Gastrointestinal: Normal bowel sounds, Soft and benign, Non-distended, No rebound, No guarding, Tenderness (RUQ) Musculoskeletal: No clubbing, No swelling, No tenderness Integumentary: No rashes Neurological: Normal gait, Normal speech, Normal strength at 5/5 x4 extr, Normal tone, Sensation intact, Cranial nerves 3-12 intact, Normal affect Lymphatics: No axilla or inguinal lymphadenopathy - Studies Laboratory Data (last 24 hrs) 11/29/19 17:55: PT 11.3, INR 0.96 11/29/19 17:55: WBC 12.4 H, Hgb 11.9 L, Hct 35.9 L, Plt Count 216 11/29/19 17:55: Sodium 136, Potassium 3.5, BUN 15, Creatinine 0.90, Glucose 191 H, Magnesium 2.0, Total Bilirubin 0.2, AST 19, ALT 22, Alkaline Phosphatase 66, Troponin I 0.05 H Assessment & Plan - Problems (Diagnosis) (1) Chest pain, rule out acute myocardial infarction Current Visit: Yes Status: Acute (2) Acute cholecystitis Current Visit: Yes Status: Acute (3) Leukocytosis Current Visit: Yes Status: Acute - Plan 1. Surgery consultation 2. HIDA scan is pending 3. Repeat EKG and troponins 4. Anti-platelet therapy, beta-lissa, statin, and O2 as needed 5. IV antibiotic therapy 6. Monitor hemodynamics closely 7. GI and DVT prophylaxis Discharge Plan: Home Plan to discharge in: Greater than 2 days - Advance Directives Does patient have a Living Will: No Does patient have a Durable POA for Healthcare: No - Code Status/Comfort Care Code Status Assessed: Yes Code Status: Full Code Critical Care: No Time Spent Managing PTS Care (In Minutes): 45
--- NOTE | 2019-11-30 08:13 | P.PN ---
Subjective Date of Service: 11/30/19 Patient states that the only thing that helped her pain was her Flagyl. Will go ahead and continue this this morning. HIDA scan pending. Surgery consultation. Patient's troponin were mildly elevated so will repeat these as well. Talk with Cardiology for cardiac clearance prior to surgery. Review of Systems 10-point ROS is otherwise unremarkable Physical Examination - Vital Signs Temperature: 98.1 F Blood Pressure: 131/66 Pulse: 102 Respirations: 18 Pulse Ox (%): 97 - Physical Exam General: Alert, In no apparent distress, Oriented x3 Respiratory: Clear to auscultation bilaterally, Normal air movement Cardiovascular: Regular rate/rhythm, Normal S1 S2, No murmurs Gastrointestinal: Normal bowel sounds, Soft and benign, Non-distended, No tenderness Musculoskeletal: No clubbing, No swelling, No tenderness Neurological: Normal strength at 5/5 x4 extr, Sensation intact, Cranial nerves 3-12 intact - Studies Laboratory Data (last 24 hrs) 11/29/19 17:55: PT 11.3, INR 0.96 11/29/19 17:55: WBC 12.4 H, Hgb 11.9 L, Hct 35.9 L, Plt Count 216 11/29/19 17:55: Sodium 136, Potassium 3.5, BUN 15, Creatinine 0.90, Glucose 191 H, Magnesium 2.0, Total Bilirubin 0.2, AST 19, ALT 22, Alkaline Phosphatase 66, Troponin I 0.05 H Medications List Reviewed: Yes Assessment & Plan - Problems (Diagnosis) (1) Chest pain, rule out acute myocardial infarction Current Visit: Yes Status: Acute (2) Acute cholecystitis Current Visit: Yes Status: Acute (3) Leukocytosis Current Visit: Yes Status: Acute - Plan 1. Surgery consultation pending 2. HIDA scan is pending 3. Repeat EKG and troponins 4. Anti-platelet therapy, beta-lissa, statin, and O2 as needed 5. IV antibiotic therapy 6. Monitor hemodynamics closely 7. GI and DVT prophylaxis Discharge Plan: Home Plan to discharge in: Greater than 2 days - Advance Directives Does patient have a Living Will: No Does patient have a Durable POA for Healthcare: No - Code Status/Comfort Care Code Status: Full Code Critical Care: No Time Spent Managing PTS Care (In Minutes): 30
--- NOTE | 2019-11-30 08:29 | RAD REPORT ---
EXAM DESCRIPTION: NM - Hepatobiliary System W/ Ph - 11/30/2019 7:03 am CLINICAL HISTORY: Abdominal pain TECHNIQUE: The patient was administered 6.3 millicuries technetium Choletec intravenous and images o f the abdomen obtained for 36 minutes. Patient was given 1.7 micrograms Kinevac intravenously and charly ges of the gallbladder obtained for 30 minutes FINDINGS: Liver demonstrates prompt radiotracer uptake. Activity is seen within the gallbladder by 10 minutes. Uptake is seen within small bowel. After the administration of cck gallbladder ejection fraction equals 13% (normal values greater than 25% Patient complained of pain 10/10 prior to CCK. No change during the administration of CCK IMPRESSION: No evidence of acute cholecystitis Gallbladder ejection fraction equals 13% which is diminished and may indicate biliary dyskinesis
[2019-11-30] MEDS ORDERED: lisinopriL 10 MG TAB PO SCH (09:00)
[2019-11-30] MEDS ORDERED: ENOXAPARIN 40 MG/0.4 ML SQ SCH (09:00)
[2019-11-30] MEDS ORDERED: ASPIRIN EC 81 MG TAB PO SCH (09:00)
[2019-11-30] MEDS ORDERED: METRONIDAZOLE 500mg IVPB 500 MG/100 ML BAG IV SCH (12:00)
[2019-11-30 12:29] VITALS: BP 105/53; TEMP 97.9
--- NOTE | 2019-11-30 12:59 | EKG ---
Test Date: 2019-11-29 Test Time: 22:18:36 Linux Consultant: VALENTE MEASUREMENT RESULTS: Intervals: Rate: 97 MT: 134 QRSD: 100 QT: 378 QTc: 480 [place]: P: 54 MT: 134 QRS: 8 T: 27 INTERPRETIVE STATEMENTS: Normal sinus rhythm Ventricular pre-excitation, WPW pattern type A Abnormal ECG Compared to ECG 11/29/2019 16:38:21 Ventricular preexcitation now present Prolonged QT interval no longer present Electronically Signed On 11-30-19 12:58:19 CDT by Chago Collazo
--- NOTE | 2019-11-30 13:01 | EKG ---
Test Date: 2019-11-29 Test Time: 16:38:21 Extermination Supervisor: CELINA MEASUREMENT RESULTS: Intervals: Rate: 82 DE: 126 QRSD: 104 QT: 418 QTc: 488 [place]: P: 34 DE: 126 QRS: 20 T: 48 INTERPRETIVE STATEMENTS: Normal sinus rhythm Prolonged QT Abnormal ECG Compared to ECG 10/02/2018 20:03:46 Prolonged QT interval now present Ventricular preexcitation no longer present Electronically Signed On 11-30-19 12:58:29 CDT by Chago Collazo
--- NOTE | 2019-11-30 13:38 | ECHO ---
HEIGHT: 5 ft 11 in WEIGHT: 236 lb 4 oz DATE OF STUDY: 11/30/[address]: Kenyon Lawrence MD 2-DIMENSIONAL: YES M.MODE: YES DOPPLER: YES COLOR FLOW: YES TDS: NO PORTABLE: NO DEFINITY: NO BUBBLE STUDY: NO DIAGNOSIS: CONGESTIVE HEART FAILURE CARDIAC HISTORY: CATHERIZATION: NO SURGERY: NO PROSTHETIC VALVE: NO PACEMAKER: NO MEASUREMENTS (cm) DIASTOLIC (NORMALS) SYSTOLIC (NORMALS) IVSd 1.1 (0.6-1.2) LA Diam 3.5 (1.9-4.0) LVEF 74% LVIDd 4.2 (3.5-5.7) LVIDs 2.4 (2.0-3.5) %FS 42% LVPWd 1.1 (0.6-1.2) Ao Diam 3.2 (2.0-3.7) 2 DIMENSIONAL ASSESSMENT: RIGHT ATRIUM: NORMAL LEFT ATRIUM: NORMAL RIGHT VENTRICLE: NORMAL LEFT VENTRICLE: NORMAL TRICUSPID VALVE: NORMAL MITRAL VALVE: NORMAL PULMONIC VALVE: NORMAL AORTIC VALVE: NORMAL PERICARDIAL EFFUSION: NONE AORTIC ROOT: NORMAL LEFT VENTRICULAR WALL MOTION: NORMAL DOPPLER/COLOR FLOW: NORMAL COMMENTS: NORMAL 2D ECHOCARDIOGRAM WITH DOPPLER. NO WALL MOTION ABNORMALITY. NO EFFUSION. TECHNOLOGIST: Laura WINTERS
--- NOTE | 2019-11-30 14:20 | P.DS ---
Admission Date: 11/29/19 Discharge Date: 11/30/19 Primary Care Provider: unknown Disposition: ROUTINE DISCHARGE Discharge Condition: GOOD Reason for Admission: Chest pain; right upper quadrant tenderness; epigastric tenderness Consultations: Cardiology-Dr. Collazo Surgery-Dr. Fierro Procedures: CT scan: FINDINGS: Linear subsegmental atelectasis is present in both lung bases.Small to moderate hiatal hernia is noted. The liver demonstrates no focal mass or biliary dilatation. The gallbladder demonstrates mild pericholecystic fluid. The spleen, pancreas, adrenal glands and kidneys are within normal limits. No bowel obstruction, free air, free fluid or abscess. A large amount of stool is present within the sigmoid colon luminal caliber change of the sigmoid colon is present at the mid aspect which could represent a stricture. Postsurgical changes are also present in the region. The appendix is not identified as a discrete structure, however, no secondary findings of appendicitis are identified. No evidence of significant lymphadenopathy. 6 cm right adnexal cyst. No suspicious bony findings. IMPRESSION: Prominent fecal retention in the colon is seen with postsurgical changes in the sigmoid colon. There is particularly notable stool retention in a dilated sigmoid colon where a burton in caliber of the lumen is present which may indicate a stricture. Followup nonemergent colonoscopy assessment would be suggested. Possible pericholecystic fluid. If the patient has right upper quadrant symptomology, consider gallbladder ultrasound followup. 6 cm mild adnexal cyst. CT scan: FINDINGS: No evidence of pulmonary thromboembolism. No acute aortic finding demonstrated. Linear opacities are present in both lung bases likely representing subsegmental atelectasis. Mild interstitial pulmonary edema. No significant pericardial or pleural fluid. Small hiatal hernia is present. No concerning bony finding. IMPRESSION: No evidence of pulmonary thromboembolism. Mild interstitial pulmonary edema is present with linear subsegmental atelectasis in both lung bases ABUS: COMPARISON: No comparisons FINDINGS: The gallbladder demonstrates several shadowing gallstones. Gallbladder wall appears thickened to 7-8 mm. The common bile duct is normal me asuring 4 mm. The liver demonstrates no findings of intrahepatic biliary dilatation. IMPRESSION: Cholelithiasis with moderate gallbladder wall thickening. In the correct clinical setting, this can represent acute cholecystitis. HIDA: FINDINGS: Liver demonstrates prompt radiotracer uptake. Activity is seen within the gallbladder by 10 minutes. Uptake is seen within small bowel. After the administration of cck gallbladder ejection fraction equals 13% (normal values greater than 25% Patient complained of pain 10/10 prior to CCK. No change during the adm inistration of CCK IMPRESSION: No evidence of acute cholecystitis Gallbladder ejection fraction equals 13% which is diminished and may indicate biliary dyskinesis Medical problem list: Chest pain atypical with epigastric abdominal pain related to biliary dyskinesia and likely underlying GERD/hiatal hernia Depression with anxiety Mixed hyperlipidemia Chronic constipation with history of volvulus and colectomy Brief History of Present Illness: 49-year-old female presented to the emergency room with chest pain and epigastric pain. Patient was admitted for further evaluation. Hospital Course: Patient presented with atypical chest pain and epigastric abdominal pain. Patient was admitted for further evaluation. Patient was seen by Cardiology. Echocardiogram unremarkable. Patient had normal ejection fraction. No further inpatient evaluation was required. Patient was also seen by surgery. There was some question of possible gallbladder related issues. After CT scan, abdominal ultrasound and HIDA scan, it was determined that the patient has biliary dyskinesia. Patient will need a follow up with surgery as an outpatient to further address. Patient may require cholecystectomy in the future if this persists. Further evaluation and treatment will be done by surgery as an outpatient. From a cardiac perspective patient may continue with aspirin 81 mg daily. From a GI/surgical perspective patient need a follow up with surgery to further address. CT scan also revealed small hiatal hernia. Patient likely with underlying GERD. At discharge patient will continue with Pepcid 20 mg 1 pill twice daily. At discharge will recommend that she follow up with GI as an outpatient to further evaluate. Patient will likely require EGD and colonoscopy to further address. Patient has appointment to see GI soon. Patient had makes hyperlipidemia. Triglycerides were slightly elevated. Trig lyceride level 265. LDL 98. Recommend fish oil 1000 mg 1 pill twice daily. Recommend to recheck fasting lipid panel in 4-6 weeks to monitor progress. Further adjustment or addition of medication can be done by his her PCP. Recommend [employer] diet. Patient with underlying depression with anxiety. At discharge she will continue with her current medications including Buspar and Effexor. Patient with chronic constipation. Patient reports a history of volvulus and colectomy. Recommend follow up with GI as an outpatient to further monitor and address. Recommend to continue with with a stool softener. Vital Signs/Physical Exam: Temp Pulse Resp BP Pulse Ox 97.9 F 80 18 105/53 L 94 11/30/19 12:00 11/30/19 12:00 11/30/19 12:00 11/30/19 12:00 11/30/19 12:00 General: Alert, In no apparent distress, Oriented x3, Cooperative HEENT: Atraumatic Neck: Supple Respiratory: Clear to auscultation bilaterally, Normal air movement Cardiovascular: Normal pulses, Regular rate/rhythm Gastrointestinal: Normal bowel sounds, Soft and benign, Non-distended, No masses, No rebound, No guarding Integumentary: No tenderness/swelling, No erythema, No warmth, No cyanosis Neurological: Normal speech, Normal strength at 5/5 x4 extr, Normal tone, Normal affect Laboratory Data at Discharge: WBC 13.1 K/uL (4.3-10.9) H 11/30/19 05:06 Hgb 12.3 g/dL (12.0-15.0) 11/30/19 05:06 Hct 37.1 % (36.0-45.0) 11/30/19 05:06 Plt Count 204 K/uL (152-406) 11/30/19 05:06 PT 11.3 SECONDS (9.5-12.5) 11/29/19 17:55 INR 0.96 11/29/19 17:55 Sodium 136 mmol/L (136-145) 11/30/19 05:06 Potassium 4.1 mmol/L (3.5-5.1) 11/30/19 05:06 BUN 10 mg/dL (7-18) 11/30/19 05:06 Creatinine 0.83 mg/dL (0.55-1.3) 11/30/19 05:06 Glucose 119 mg/dL (74-106) H 11/30/19 05:06 Magnesium 2.0 mg/dL (1.8-2.4) 11/29/19 17:55 Total Bilirubin 0.2 mg/dL (0.2-1.0) 11/29/19 17:55 AST 19 U/L (15-37) 11/29/19 17:55 ALT 22 U/L (12-78) 11/29/19 17:55 Alkaline Phosphatase 66 U/L (45-117) 11/29/19 17:55 Troponin I 0.02 ng/mL (0.0-0.045) 11/30/19 07:47 Triglycerides 265 mg/dL (<150) H 11/29/19 Unknown Cholesterol 213 mg/dL (<200) H 11/29/19 Unknown HDL Cholesterol 62 mg/dL (40-60) H 11/29/19 Unknown Cholesterol/HDL Ratio 3.44 11/29/19 Unknown Home Medications: Buspirone HCl [Buspar] 30 mg PO DAILY 11/29/19 LORazepam [Ativan*] 1 mg PO TID 11/29/19 Venlafaxine HCl [Effexor*] 75 mg PO DAILY 11/29/19 Aspirin [Aspirin EC 81 MG] 81 mg PO DAILY #90 tablet. 11/30/19 Docosahexanoic AC/Epa [Fish Oil 1,000 MG CAP] 1 cap PO BID #60 cap 11/30/19 Famotidine [Pepcid] 20 mg PO BID #60 tab 11/30/19 New Medications: Aspirin [Aspirin EC 81 MG] 81 mg PO DAILY #90 tablet. Docosahexanoic AC/Epa [Fish Oil 1,000 MG CAP] 1 cap PO BID #60 cap Famotidine [Pepcid] 20 mg PO BID #60 tab Patient Discharge Instructions: 1. Recommend follow up with PCP in 1 week to follow up hospitalization. 2. Patient presented with atypical chest pain and epigastric abdominal pain. Patient was admitted for further evaluation. Patient was seen by Cardiology. Echocardiogram unremarkable. Patient had normal ejection fraction. No further inpatient evaluation was required. Patient was also seen by surgery. There was some question of possible gallbladder related issues. After CT scan, abdominal ultrasound and HIDA scan, it was determined that the patient has biliary dyskinesia. Patient will need a follow up with surgery as an outpatient to further address. Patient may require cholecystecto my in the future if this persists. Further evaluation and treatment will be done by surgery as an outpatient. From a cardiac perspective patient may continue with aspirin 81 mg daily. From a GI/surgical perspective patient need a follow up with surgery to further address. 3. CT scan also revealed small hiatal hernia. Patient likely with underlying GERD. At discharge patient will continue with Pepcid 20 mg 1 pill twice daily. At discharge will recommend that she follow up with GI as an outpatient to further evaluate. Patient will likely require EGD and colonoscopy to further address. Patient has appointment to see GI soon. 4. Patient had makes hyperlipidemia. Triglycerides were slightly elevated. Triglyceride level 265. LDL 98. Recommend fish oil 1000 mg 1 pill twice daily. Recommend to recheck fasting lipid panel in 4-6 weeks to monitor progress. Further adjustment or addition of medication can be done by his her PCP. Recommend [employer] diet. 5. Patient with underlying depression with anxiety. At discharge she will continue with her current medications including Buspar and Effexor. 6. Patient with chronic constipation. Patient reports a history of volvulus and colectomy. Recommend follow up with GI as an outpatient to further monitor and address. Recommend to continue with with a stool softener. Diet: AHA Activity: Ad peter Time spent managing pt's care (in minutes): 55
[2019-11-30] MEDS ORDERED: DOCUSATE NA 100 MG CAP PO PRN (14:34)
--- NOTE | 2019-11-30 15:17 | P.PN ---
Subjective Date of Service: 11/30/19 Primary Care Provider: unknown Chief Complaint: Chest pain; right upper quadrant tenderness; epigastric tenderness Subjective: Improving (Patient has no complaints today, only has some residual throat complaints with reflux type symptoms, no abdominal complaints, no chest pain, no SOB) Physical Examination - Vital Signs Temperature: 97.9 F Blood Pressure: 105/53 Pulse: 80 Respirations: 18 Pulse Ox (%): 94 - Physical Exam General: Alert, In no apparent distress, Cooperative HEENT: Mucous membr. moist/pink Respiratory: Clear to auscultation bilaterally, Normal air movement Cardiovascular: Regular rate/rhythm Gastrointestinal: Soft and benign, Non-distended, No ascites, No tenderness, No masses, No rebound, No guarding Neurological: Normal speech - Studies Laboratory Data (last 24 hrs) 11/29/19 17:55: PT 11.3, INR 0.96 11/29/19 17:55: WBC 12.4 H, Hgb 11.9 L, Hct 35.9 L, Plt Count 216 11/29/19 17:55: Sodium 136, Potassium 3.5, BUN 15, Creatinine 0.90, Glucose 191 H, Magnesium 2.0, Total Bilirubin 0.2, AST 19, ALT 22, Alkaline Phosphatase 66, Troponin I 0.05 H Medications List Reviewed: Yes Assessment And Plan - Current Problems (Diagnosis) (1) Biliary dyskinesia Current Visit: Yes Status: Acute Plan: - HIDA scan shows no evidence of cholecystitis but does indicate biliary dyskinesia - recommend patient follow up with me as outpatient for planning cholecystectomy - recommend follow up with Dr. Euceda regarding recent gastrointestinal concerns - medical management per dr diallo
[2019-11-30] MEDS ORDERED: FAMOTIDINE 20 MG/2 ML VIAL IV SCH (21:00)
--- NOTE | 2019-11-30 21:02 | CON ---
Date of Consultation: 11/29/2019 Brief History Of Present Illness: Patient is a 49-year-old female who presents to hospital with approximately 1-day history of epigastric and lower neck, substernal chest pain up near her reg ion of her pilar and into her laryngeal region. She states that this pain has been getting progress ively worse with some radiation through to her back between her shoulder blades and higher. She has had pain like this before, but never to this level of intensity. She states that she know she has so me gastrointestinal problems and has had surgery before for a sigmoid volvulus in the past, but had s ome swallowing difficulty as of late. She is a patient of Dr. Euceda and is currently scheduled to go see Dr. Euceda regarding these issues for complete workup. She states that she has had some reflux b efore in the past and some chest pain associated of this type, but has generally improved by taking a josh suppression, but this has been getting progressively worse over the past few weeks, but as of the last day she has substernal stabbing chest pain, she thought this was not esophageal in origin, perh aps was cardiovascular in origin, as such she came to the emergency room with the above-stated compla ints. She denied any abdominal pain, any food associations, any sick contacts, recent travel, COVID exposures. Past Medical History: Significant for anxiety, depression, sigmoid volvulus. Past Surgical History: Includes a sigmoid hemicolectomy. Allergies: OMEPRAZOLE. Home Medications: BuSpar, Ativan, omeprazole, and Effexor. Habits: She smokes every day. She uses alcohol recreationally. Denies any recreational drug use. Review of Systems: 10-point review of systems other than HPI, denies. Physical Examination: Vital Signs: At the time of my examination, her temperature was 98.1, blood pressure 131/66, pulse i s 102, respiratory rate 18, pulse ox 97% on room air. General: She is awake, alert, and oriented. Psychiatric: She is appropriate and conversive. HEENT: She is normocephalic. Sclerae icteric. Mucous membranes are moist. Oropharynx clear. Neck: Supple. No JVD. Chest: Normal expansion excursion. Cardiovascular: Regular rate and rhythm. Pulmonary: Clear to auscultation bilaterally. Abdomen: Soft, nontender, nondistended. No rebound. No guarding. No focal peritonitis. Negative Reynolds sign. Negative psoas sign. There is no abdominal tenderness even to deep palpation globally. Extremities: No clubbing, cyanosis, or edema. Skin: Warm and dry. Laboratory Data: White blood count 12.4, hemoglobin 11.9, hematocrit 35.9, platelet count is 216, ne utrophils are 76%. Her PT is 11.3, INR 0.96, sodium 136, potassium 3.5, chloride 103, carbon dioxide 27, BUN 15, creatinine 0.9, glucose 191, calcium is 8.8, magnesium 2.0, total bilirubin 0.2, direct component 0.1, AST 19, ALT 22, alkaline phosphatase is 66. Her rapid troponin was 0.05 on first chec k, 0.02 on subsequent check. ProBNP is 924. Her triglycerides were 265, cholesterol 213. She had i maging performed which included a CT abdomen and pelvis on 11/28 officially read as prominent fecal r etention of the colon seen with postsurgical changes of the sigmoid colon with particularly notable s tool retention and dilated sigmoid colon where a change in caliber of the lumen is present which may indicate a stricture followup, nonemergent colonoscopy recommended. Possible pericholecystic fluid a s the patient has right upper quadrant symptomology, consider gallbladder ultrasound and a 6 cm mild adnexal cyst. She had a CTA of the thorax officially read as no evidence of pulmonary thromboembolis m. Mild interstitial pulmonary edema is present with linear subsegmental atelectasis in both lung ba ses. She had a followup abdominal ultrasound also performed, officially read as cholelithiasis and m oderate gallbladder wall thickening this could represent acute cholecystitis. Assessment And Plan: This is a 49-year-old female who presents with possible biliary colic. Patient does not have clinical signs of acute cholecystitis and as such I recommend HIDA scan to bett er define and delineate if the patient has evidence of cholecystitis. If this is negative, I would p roceed with dietary challenge if patient is successful. I recommended followup as an outpatient to markus mackenzie the HIDA scan and possible cholecystectomy if this is abnormal, however, if this is completely normal, I would recommend continued workup from a gastrointestinal standpoint. She is instructed to follow up with Dr. Euceda as soon as possible to continue with the workup for the gastroesophageal co mplaints she has described above. I have explained the risks, benefits, and alternatives to the abov e stated plan, the patient agrees to proceed as indicated. ARASELI/MAYANK Voice ID: [id number] Report ID: [id number]
[2019-11-30] MEDS ORDERED: FAMOTIDINE 20 MG TAB PO SCH (22:00)
--- NOTE | 2019-12-01 07:33 | CON ---
Date of Consultation: 11/30/2019 The patient was admitted on 11/29/[address] Lawrence. I saw the patient on 11/30/2019. Reason For Consultation: Chest pain. History Of Present Illness: Ms. Olguin is a 49-year-old woman who has a history of anxiety and depres katherin, gastroesophageal reflux disease. She came in with midepigastric pain that radiated to the back , to the right shoulder, to the right neck, has been going on for about 2 days. No nausea, vomiting, diaphoresis, PND, orthopnea, pedal edema, palpitation, or syncope. Her pain actually gets worse dep ending on her body movement and her body position. By the time I saw her, she has had an EKG that is unremarkable. Troponin was fairly unremarkable. Her chest x-ray was negative. She did have a HIDA scan that shows some gallstones, but no evidence of acute cholecystitis. There is a plan to do surg katy on her as an outpatient for her gallstones. Echocardiogram, which was done before I saw the lashay ent, was perfectly normal. Past Medical History: Includes anxiety, depression, panic attacks, volvulus, and she has had a WPW i n the past. Medications: At home include Ativan, Effexor, BuSpar, omeprazole 40 mg 1 p.o. daily. Review of Systems: Negative. Social History: Negative. Family History: Negative. Physical Examination: General: Patient was still having pain when I saw her. She was in sinus rhythm, afebrile. Vital Signs: Stable. HEENT: Negative. Neck: Supple without any bruit, lymphadenopathy, JVD, or thyromegaly. Chest: Clear to auscultation and percussion. Cardiac: Revealed a regular rhythm and rate. No murmurs, gallops, or rubs. Abdomen: Benign. Extremities: Revealed no clubbing, cyanosis, or edema. Diagnostic Data: Include a white count of 13,000. Her BNP was 924. Her triglyceride was 265, her c holesterol 213 with an HDL of 62. Chest x-ray and EKG were unremarkable. Impression And Plan: Atypical chest pain, most likely gastrointestinal in origin. I do not think th is is an acute coronary syndrome. I do not think her pain is related to her gallbladder. Dr. Sourav bright has seen her for surgery for surgical consultation for possible cholecystectomy down the road. I t hink patient needs to have extensive GI workup with endoscopy and colonoscopy. Both of those were ap parently scheduled by Dr. Pillai, but things have changed because of the recent situation with the [place] V[place] virus as well as the fact that apparently they thought that she may have hepatitis B. There is a hepatitis panel pending. The case was discussed in detail with Dr. Christian. From a cardiac standpoi nt, I feel comfortable with her going home and I can make an arrangement for her to have an outpatien t stress test. SANDRA/MAYANK Voice ID: [id number] Report ID: [id number]
[2019-12-01] MEDS ORDERED: VENLAFAXINE HCL 75 MG TABLET PO SCH (09:00)
[2019-12-01] MEDS ORDERED: BUSPIRONE HCL 15 MG TABLET PO SCH (09:00)
== END 2019-11-30 15:22 | disposition home or self-care (01) ==
LOC: ER 16:05 → ERHOLD 21:02 → 2ND 22:22
PROVIDERS: ADMIT Hospitalist; ATTEND Hospitalist
DX: R07.89 Other chest pain (principal); R10.13 Epigastric pain; K82.8 Other specified diseases of gallbladder; K44.9 Diaphragmatic hernia without obstruction or gangrene; E78.2 Mixed hyperlipidemia; K21.9 Gastro-esophageal reflux disease without esophagitis; K59.09 Other constipation; F41.8 Other specified anxiety disorders; F41.0 Panic disorder [episodic paroxysmal anxiety]; F17.210 Nicotine dependence, cigarettes, uncomplicated; Z90.49 Acquired absence of other specified parts of digestive tract; Z88.8 Allergy status to other drugs, medicaments and biological substances; Z82.49 Family history of ischemic heart disease and other diseases of the circulatory system; Z83.3 Family history of diabetes mellitus
CPT/HCPCS: 93005 ×2; 93306; 85025 ×2; 80048 ×2; 36415; 83735; 85610; 80061; 80076; 84484 ×2; 83880; 71275; 74177; 76705; 78227; 99285; U0002; Q9967; J2550; J3010; J2543; J2270 ×2; J2405; J0744; J2805; A9537; G0378 ×2

== ENCOUNTER 2020-07-29 20:33 | Emergency (ER) | payer OTHER ==
--- OUTSIDE RECORDS SUMMARY | 2020-07-29 20:35 | XMS REPORT | Summary of Care ---
:1970 Author Organization [facility] Address [address] [place] [id number] Care Team Providers Name Role Phone Pcp, Patient Does Not Have A Primary Care Provider +[id number] 0-0000 Encounter Details Date Type Department Care Team Description 07/23/2020 Prep For Surgery [facility] General NewtonOsvaldo e cholecystitis Surgery- Lloyd Vargas MD (Primary Dx) [address] [place] [address] [phone] Allergies No Known Allergiesdocumented as of this encounter (statuses as of 07/23/2020) Medications Medication Sig Dispensed Refills Start Date End Date Status LORazepam (ATIVAN) 1 mg Take 1 mg by 0 Active tablet mouth 3 (three) times daily. buPROPion XL (WELLBUTRIN Take 1 tablet 30 tablet 1 04/01/2016 Active XL) 150 mg 24 hr by mouth daily. tabletIndications: Smoking polyethylene glycol Take 17 g by 510 g 2 01/27/2017 Active (MIRALAX) 17 gram/dose mouth daily. powderIndications: Constipation, unspecified constipation type busPIRone [address] MARS, 1 09/05/2017 Active SETH LEDY venlafaxine XR [address] MARS, 1 09/05/2017 Active hr capsule SETH VILLAFANA busPIRone 30 mg tablet 0 03/14/2018 Active OMEPRAZOLE 20 mg TAKE 1 CAPSULE 30 capsule 1 03/28/2019 Active capsuleIndications: BY MOUTH ONCE Gastroesophageal reflux DAILY disease, esophagitis presence not specified Hospital, Clinic, or Ordered Dose Route Frequency Start Date End D ate Status Other Facility Administered Medication ceFAZolin (ANCEF) 1000 mg IVPB O.R. 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 Elevated blood pressure 03/29/2013 documented as of this encounter (statuses as of 07/23/2020) Immunizations Name Administration Dates Next Due Influenza Virus Vaccine (3+ yrs) 04/30/2014 documented as of this encounter Social History Tobacco Use Types Packs/Day Years Used Date Current Every Day Smoker Cigarettes 0.25 23 Smokeless Tobacco: Never Used Alcohol Use Drinks/Week oz/Week Comments No 0 Standard drinks or equivalent 0.0 Sex Assigned at Date Recorded Not on file documented as of this encounter Last Filed Vital Signs Not on filedocumented in this encounter Plan of Treatment Date Type Specialty Care Team Description 08/01/2020 Office Visit Surgery Alicia Newton MD [address] [facility] [address] [place] [address] [phone] Health Maintenance Due Date Last Done Comments PNEUMOCOCCAL 0-64 YEARS COMBINED 1975 SERIES (1 of 1 - PPSV23) DTaP,Tdap,and Td Vaccines (1 - Tdap) 1988 PAP SMEAR 09/02/2018 09/02/2015, 04/30/2014 Breast Cancer Screening (MAMMOGRAM) 04/18/2019 04/18/2018, 03/09/2016, 06/06/2014 COLON CANCER SCREENING ANNUAL 2019 FIT/FOBT COLON CANCER SCREENING FIT DNA EVERY 2019 3 YEARS COLON CANCER SCREENING SIGMOIDOSCOPY 2019 EVERY 5 YEARS COLONOSCOPY 2019 Colorectal Cancer Screening 2019 Zoster Recombinant Vaccine (SHINGRIX) 2019 (1 of 2) INFLUENZA VACCINE (#1) 2020 04/30/2014 Depression Screening 12/25/2020 12/26/2019 documented as of this encounter Results Not on filedocumented in this encounter Visit Diagnoses Diagnosis Acute cholecystitis - Primary documented in this encounter Insurance Payer Benefit Plan / Subscriber ID Effective Dates Phone Addre ss Type Group [facility] STAR [id number] 2012-Present Medicaid COMM PLAN - PLUS MANAGED MEDICAID documented as of this encounter
--- OUTSIDE RECORDS SUMMARY | 2020-07-29 20:35 | XMS REPORT | Summary of Care ---
:1970 Author Organization [facility] Address [address] [place] [address] Care Team Providers Name Role Phone Pcp, Patient Does Not Have A Primary Care Provider +1-000-00 0-0000 Reason for Visit Reason Comments Appointment Encounter Details Date Type Department Care Team Description 07/22/2020 Telephone [facility] General Surgery- Alicia Del Rio MD Appointment [address] [facility] [address] [place] [address] [place] [address] [phone] Allergies No Known Allergiesdocumented as of this [...] Per Dr. MARS, 1 09/05/2017 Active SETH VILLAFANA venlafaxine XR [address] MARS, 1 09/05/2017 Active hr capsule SETH VILLAFANA busPIRone 30 mg tablet 0 03/14/2018 Active OMEPRAZOLE 20 mg TAKE 1 CAPSULE 30 capsule 1 03/28/2019 Active capsuleIndications: BY MOUTH ONCE Gastroesophageal reflux DAILY disease, esophagitis presence not specified documented as of this encounter (statuses as of 07/23/2020) Active Problems Problem Noted Date Hepatitis B surface antigen positive 06/07/2014 Abnormal Pap smear, can't excl hi gd sq intraepithelia l lesion (ASC-H) 06/07/2014 Atypical chest pain 03/29/2013 Tobacco abuse 03/29/2013 Chronic cough 03/29/2013 Anxiety 03/29/2013 Overweight 03/29/2013 Overview: ICD10 Diagnosis 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 In office appointment 08/01/20. Patient is aware elephone Encounter - Alicia Newton MD - 07/23/2020 7:36 AM WOOL HANKER Xiomara, could you schedule her for surgery please, we can schedule before appointment. Rebekah, could you schedule an appointment to see her in clinic before surgery please? HANKER Telephone Encounter - Rebekah Bonner - 07/22/2020 3:42 PM CSTPatient called to get update regarding scheduling surgery for gall bladder. Patient was seen back inJune. Per notes, wanting records from Dr. Euceda's office. Records uploaded on 01/31. Patient called in March to schedule surgery, and stated she hasn't heard anything. Patient states she feels her gall bladder is getting worse and would like to schedule as soon as possible. Please advise. documented in this encounter Plan of Treatment Date Type Specialty Care Team Description 08/01/2020 Office Visit Surgery Alicia Newton MD [address] [facility] [address] [place] [address] [phone] Health Maintenance Due Date Last Done Comments [...] Results Not on filedocumented in this encounter Insurance Payer Benefit Plan / Subscriber ID Effective Dates Phone Addre ss Type Group [facility] STAR [id number] 2012-Present Medicaid COMM PLAN - PLUS MANAGED MEDICAID documented as of this encounter
--- OUTSIDE RECORDS SUMMARY | 2020-07-29 20:35 | XMS REPORT | Continuity of Care Document ---
:1970 Author Organization [facility] t Address [address] [place] [address] Care Team Providers Name Role Phone [facility] Attending Clinician Doctor Unassigned, Name Attending Clinician Unavailable Jarett Coto Attending Clinician Problems This patient has no known problems. Allergies, Adverse Reactions, Alerts This patient has no known allergies or adverse reactions. Medications This patient has no known medications. Procedures This patient has no known procedures. Encounters Start End Encounter Admission Attending Care Care Encounter Source Date/Time Date/Time Type Type Clinicians Facility Department ID 2020-07-23 2020-07-23 Prep For [facility] [id number] 00:00:00 00:00:00 Surgery Alicia Desai [id number] [place] [id number] Professio [phone] [address] 2020-07-22 2020-07-22 Telephone [facility] 1.2.840.114 [id number] 00:00:00 00:00:00 Alicia Desai [id number] [place] [id number] Professio [phone] [address] 2020-04-19 2020-04-19 Orders Doctor SHERRY [id number] 00:00:00 00:00:00 Only UnassignedJOSHUA [id number] [place] [facility] [id number] [id number] 2020-04-19 2020-04-19 [facility] [id number] 00:00:00 00:00:00 Alicia Desai [id number] [place] [id number] Professio [phone] [address] 2020-04-01 2020-04-01 [facility] [id number] 00:00:00 00:00:00 Alicia Desai [id number] [place] [id number] Professio [phone] [address] 2020-02-01 2020-02-01 Orders Doctor SHERRY [id number] 00:00:00 00:00:00 Only Unassigned, JOSHUA [id number] [place] [facility] [id number] [id number] 2020-01-15 2020-01-15 Orders Doctor POWELL [id number] 00:00:00 00:00:00 Only Unassigned, JOSHUA [id number] [place] [facility] [id number] [id number] 2020-01-09 2020-01-09 Telephone [facility] [id number] 00:00:00 00:00:00 Alicia Desai [id number] [place] [id number] Professio [phone] [address] 2019-12-11 2019-12-11 Orders Doctor SHERRY [id number] 00:00:00 00:00:00 Only Unassigned, JOSHUA [id number] [place] [facility] [id number] [id number] 2019-03-28 2019-03-28 RefTaisha Winters [facility] [id number] 00:00:00 00:00:00 [facility] [id number] FAM[facility] [id number] MEDICINE [phone] [facility] 044 CLINIC Results This patient has no known results.
--- NOTE | 2020-07-29 22:51 | EDPHYS ---
Physician Documentation [facility] Name: Steph Olguin Age: 50 yrs Sex: Female : 1970 Arrival Date: 07/29/2020 Time: 20:37 Bed 14 Private MD: ED Physician Gabo Contreras HPI: 07/29 23:01 This 50 yrs old Female presents to ER via Ambulatory with complaints of pm1 Toothache. 23:01 The patient presents with pain, swelling. The problem is located in the upper left pm1 central incisor (#9). Onset: The symptoms/episode began/occurred last night. Duration: The symptoms are continuous. Associated signs and symptoms: Pertinent positives: swelling, facial. Severity of symptoms: in the emergency department the symptoms are actually worse. The patient has experienced similar episodes in the past, a few times. The patient has not recently seen a physician. 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 - Social history:: Smoking status: Patient reports the use of cigarette tobacco products, smokes one-half pack cigarettes per day. ROS: 23:01 Constitutional: Negative for fever, chills, and weight loss. pm1 23:01 Neck: Negative for injury, pain, and swelling, Cardiovascular: Negative for chest pain, palpitations, and edema, Respiratory: Negative for shortness of breath, cough, wheezing, and pleuritic chest pain, Abdomen/GI: Negative for abdominal pain, nausea, vomiting, diarrhea, and constipation, Skin: Negative for injury, rash, and discoloration. 23:01 ENT: Positive for dental pain, Negative for sore throat, difficulty swallowing, difficulty handling secretions, hoarseness. Exam: 23:01 Constitutional: This is a well developed, well nourished patient who is awake, alert, pm1 and in no acute distress. Head/Face: Normocephalic, atraumatic. 23:01 Neck: Trachea midline, no thyromegaly or masses palpated, and no cervical lymphadenopathy. Supple, full range of motion without nuchal rigidity, or vertebral point tenderness. No Meningismus. 23:01 Skin: Warm, dry with normal turgor. Normal color with no rashes, no lesions, and no evidence of cellulitis. MS/ Extremity: Pulses equal, no cyanosis. Neurovascular intact. Full, normal range of motion. 23:01 ENT: External ear(s): are unremarkable, Ear canal(s): are normal, TM's: are normal, Mouth: Lips: normal, Oral mucosa: normal, pink and intact, abscess, is not appreciated, Dental exam: dental caries, that is moderate, specifically in the upper left central incisor (#9). 23:01 Cardiovascular: Exam negative for acute changes, Rate: normal, Rhythm: regular, Pulses: no pulse deficits are appreciated. 23:01 Respiratory: Exam negative for acute changes, respiratory distress, shortness of breath. 23:01 Neuro: Exam negative for acute changes, Orientation: is normal, Mentation: is normal, Motor: is normal, moves all fours. Vital Signs: 21:42 BP 149 / 84; Pulse 75; Resp 18 S; Temp 97(TE); Pulse Ox 100% on R/A; Weight 90.72 kg ca1 (R); Height 5 ft. 11 in. (180.34 cm) (R); Pain 10/10; 21:42 Body Mass Index 27.89 (90.72 kg, 180.34 cm) ca1 MDM: 22:37 Patient medically screened. pm1 22:49 Data reviewed: vital signs. pm1 22:49 Counseling: I had a detailed discussion with the patient and/or guardian regarding: the pm1 historical points, exam findings, and any diagnostic results supporting the discharge/admit diagnosis, the need for outpatient follow up, to return to the emergency department if symptoms worsen or persist or if there are any questions or concerns that arise at home. Administered Medications: 23:00 Drug: [place] 10 mg-325 mg 1 tabs Route: PO; zb 23:01 Follow up: Response: No adverse reaction; Medication administered at discharge. zb 23:00 Drug: Amoxicillin 500 mg Route: PO; zb 23:00 Follow up: Response: Medication administered at discharge. zb Disposition: 23:48 Co-signature as Attending Physician, Gabo Contreras MD. rn Disposition: 07/29/20 22:51 Discharged to Home. Impression: Dental caries. - Condition is Stable. - Discharge Instructions: Dental Pain. - Prescriptions for Amoxicillin 500 mg Oral Capsule - take 1 capsule by ORAL route every 8 hours for 10 days; 30 tablet. Tylenol- Codeine #3 300-30 mg Oral Tablet - take 2 tablets by ORAL route every 6 hours As needed; 20 tablet. - Medication Reconciliation Form, Thank You Letter, Antibiotic Education, Prescription Opioid Use form. - Follow up: Emergency Department; When: As needed; Reason: Worsening of condition. Follow up: Private Physician; When: 2 - 3 days; Reason: Recheck today's complaints, Continuance of care, Re-evaluation by your physician. - Problem is new. - Symptoms have improved. Signatures: Gabo Contreras MD MD rn Marinas, Patrick, NP SCREENING SPECIALIST pm1 Jenny Carranza RN RN ca1 Brown, Zipporah, RN RN zraudel Corrections: (The following items were deleted from the chart) 22:52 22:51 07/29/2020 22:51 Discharged to Home. Impression: Periapical abscess without pm1 sinus. Condition is Stable. Forms are Medication Reconciliation Form, Thank You Letter, Antibiotic Education, Prescription Opioid Use. Follow up: Emergency Department; When: As needed; Reason: Worsening of condition. Follow up: Private Physician; When: 2 - 3 days; Reason: Recheck today's complaints, Continuance of care, Re-evaluation by your physician. Problem is new. Symptoms have improved. pm1 23:01 22:52 07/29/2020 22:51 Discharged to Home. Impression: Dental caries. Condition is zb Stable. Discharge Instructions: Dental Pain. Forms are Medication Reconciliation Form, Thank You Letter, Antibiotic Education, Prescription Opioid Use. Follow up: Emergency Department; When: As needed; Reason: Worsening of condition. Follow up: Private Physician; When: 2 - 3 days; Reason: Recheck today's complaints, Continuance of care, Re-evaluation by your physician. Problem is new. Symptoms have improved. pm1
--- NOTE | 2020-07-29 22:51 | ER ---
Nurse's Notes [facility] Name: Steph Olguin Age: 50 yrs Sex: Female : 1970 Arrival Date: 07/29/2020 Time: 20:37 Bed 14 Private MD: Diagnosis: Dental caries Presentation: 07/29 21:42 Chief complaint: Patient states: toothache since yesterday at 0330, swelling on L side ca1 of face. Coronavirus screen: Client denies travel out of the [place] in the last 14 days. At this time, the client does not indicate any symptoms associated with coronavirus-19. Ebola Screen: Patient negative for fever greater than or equal to 101.5 degrees Fahrenheit, and additional compatible Ebola Virus Disease symptoms Patient denies exposure to infectious person. Patient denies travel to an Ebola-affected area in the 21 days before illness onset. No symptoms or risks identified at this time. Initial Sepsis Screen: Does the patient meet any 2 criteria? No. Patient's initial sepsis screen is negative. Does the patient have a suspected source of infection? No. Patient's initial sepsis screen is negative. Risk Assessment: Do you want to hurt yourself or someone else? Patient reports no desire to harm self or others. Onset of symptoms was July 29, 2020. 21:42 Method Of Arrival: Ambulatory ca1 21:42 Acuity: GRADY 4 ca1 Triage Assessment: 23:01 EENT: Reports. 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 - Social history:: Smoking status: Patient reports the use of cigarette tobacco products, smokes one-half pack cigarettes per day. Screenin:53 Abuse screen: Denies threats or abuse. Denies injuries from another. Nutritional zb screening: No deficits noted. Tuberculosis screening: No symptoms or risk factors identified. Fall Risk None identified. Assessment: 22:48 General: Appears in no apparent distress. comfortable, Behavior is calm, cooperative, zb appropriate for age. Pain: Complains of pain in upper left central incisor Pain radiates to left cheek Pain currently is 8 out of 10 on a pain scale. Quality of pain is described as aching, Pain began gradually, 1 day ago. Is continuous. Neuro: Level of Consciousness is awake, alert, obeys commands, Oriented to person, place, time, situation. Cardiovascular: Capillary refill < 3 seconds in bilateral fingers Patient's skin is warm and dry. Respiratory: Airway is patent Respiratory effort is even, unlabored, Respiratory pattern is regular, symmetrical. GI: Abdomen is round non-distended. : No signs and/or symptoms were reported regarding the genitourinary system. EENT: Dental caries noted in upper left central incisor (#9). Derm: Skin is intact, is healthy with good turgor, Skin is dry, Skin is normal, Skin temperature is warm. Musculoskeletal: Circulation, motion, and sensation intact. Capillary refill < 3 seconds, in bilateral fingers. Range of motion: intact in all extremities, Swelling present in left cheek. Vital Signs: 21:42 BP 149 / 84; Pulse 75; Resp 18 S; Temp 97(TE); Pulse Ox 100% on R/A; Weight 90.72 kg ca1 (R); Height 5 ft. 11 in. (180.34 cm) (R); Pain 10/10; 21:42 Body Mass Index 27.89 (90.72 kg, 180.34 cm) ca1 ED Course: 20:37 Patient arrived in ED. es 21:44 Triage completed. ca1 21:46 Arm band placed on right wrist. ca1 22:37 Francisco Briones NP is PHCP. pm1 22:37 Gabo Contreras MD is Attending Physician. pm1 22:41 Jonelle Fontaine RN is Primary Nurse. zb 22:53 Patient has correct armband on for positive identification. Bed in low position. Call zb light in reach. Door closed. Noise minimized. 23:01 No provider procedures requiring assistance completed. Patient did not have IV access zb during this emergency room visit. Administered Medications: 23:00 Drug: [place] 10 mg-325 mg 1 tabs Route: PO; zb 23:01 Follow up: Response: No adverse reaction; Medication administered at discharge. zb 23:00 Drug: Amoxicillin 500 mg Route: PO; zb 23:00 Follow up: Response: Medication administered at discharge. evelio Outcome: 22:51 Discharge ordered by . pm1 23:01 Discharged to home ambulatory. zb 23:01 Condition: stable 23:01 Discharge instructions given to patient, Instructed on discharge instructions, follow up and referral plans. medication usage, Demonstrated understanding of instructions, follow-up care, medications, Prescriptions given X 2. 23:01 Patient left the ED. evelio Signatures: Rosalba Ramirez Patrick, CHUCKIE CORPORATE REAL ESTATE SPECIALIST pm1 Jenny Carranza RN Jonelle Schroeder RN RN evelio
[2020-07-29] MEDS ORDERED: HYDROCODONE/APAP 10/325 TAB ONE (23:12)
[2020-07-29] MEDS ORDERED: AMOXICILLIN TRIHYDR 250 MG CAP ONE (23:13)
== END 2020-07-29 23:01 | disposition home or self-care (01) ==
LOC: ER 20:33
DX: K02.9 Dental caries, unspecified (principal); F17.210 Nicotine dependence, cigarettes, uncomplicated
CPT/HCPCS: 99283

== ENCOUNTER 2022-01-03 12:49 | Emergency (ER) | payer OTHER ==
--- OUTSIDE RECORDS SUMMARY | 2022-01-03 12:52 | XMS REPORT | Continuity of Care Document ---
:1970 Author Organization [facility] t Address [address] [place] [address] Care Team Providers Name Role Phone PCP, DOES NOT HAVE A Primary Care Physician Unavailable AMAN Attending Clinician Unavailable DONELL ARIAS Attending Clinician Unavailable Aman PENN Attending Clinician Doctor Unassigned, Name Attending Clinician Unavailable Jarett Coto Attending Clinician AMAN Admitting Clinician Unavailable Payers Payer Name Policy Type Policy Number Effective Date Expiration Date S [facility] [id number] 2012 00:00:00 PLUS Problems Condition Condition Condition Status Onset Resolution Last Treating Co mments Source Name Details Category Date Date Treatment Clinician Date Acute Acute Disease Active 2019-07 Overview: Univer s cholecysti cholecysti Formattin ity of tis tis 00:00: g of this [place] 00 note Medical might be Branch different from the original. Added automatic ally from request for surgery [id number] Hepatitis Hepatitis Disease Active 2013-07 Uni vers B surface B surface 08-07 ity of antigen antigen 00:00: [place] positive positive 00 Medica l Branch Abnormal Abnormal Disease Active 2013-07 Unive rs Pap smear, Pap smear, 08-07 it y of can't excl [place] excl [place] sq [place] gd sq 00 Medica l intraepith intraepith Br anch elial elial lesion lesion (ASC-H) (ASC-H) Chronic Chronic Disease Active Univers cough cough 03-29 ity of 00:00: [place] 00 Medical Branch Anxiety Anxiety Disease Active Univers 03-29 ity of 00:00: [place] 00 Medical Branch Overweight Overweight Disease Active 2013-0 Overview : Univers 03-29 Formattin ity of 00:00: g of this 00 note Medical might be Branch different from the original. 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 Tobacco Tobacco Disease Active Univers abuse abuse 03-29 ity of 00:00: [address] Allergies, Adverse Reactions, Alerts Allergy Allergy Status Severity Reaction(s) Onset Inactive Treating Comm ents Source Name Type Date Date Clinician NO KNOWN Drug Active Univers ALLERGIE Class ity of S [facility] [place] Social History Social Habit Start Date Stop Date Quantity Comments Source History of tobacco Cigarette Smoker University of use [facility] [place] Exposure to Not sure University of SARS-CoV-2 (event) [facility] [place] Alcohol intake 2021-08-05 2021-08-05 0 /d University of 00:00:00 00:00:00 [facility] [place] Cigarettes smoked 2013-03-29 2013-03-29 Univers ity of current (pack per 00:00:00 00:00:00 ) - Reported Branch Cigarette 2013-03-29 2013-03-29 University of pack-years 00:00:00 00:00:00 [facility] [place] Tobacco use and 2013-03-29 2013-03-29 Never used Universit y of exposure 00:00:00 00:00:00 [facility] [place] Sex Ass[birth year] At [birth year] Universit y of 00:00:00 00:00:00 [facility] [place] Smoking Status Start Date Stop Date Source Current every day smoker 2013-03-29 00:00:00 Uni versity of [facility] [place] Medications Ordered Filled Start Stop Current Ordering Indication Dosage Frequency Signature Comments Components Source Medication Medication Date Date Medication? Clinician (SIG) Name Name ceFAZolin Yes 1000mg Univer s (ANCEF) 1-11 ity of 1,000 mg in 13:00: [place] NaCl 0.9% 00 Medical (NS) 50 mL Branch MINI-BAG ceFAZolin Yes 1000mg Univer s (ANCEF) 1-11 ity of 1,000 mg in 13:00: [place] NaCl 0.9% 00 Medical (NS) 50 mL Branch MINI-BAG ceFAZolin 2021-0 Yes 1000mg Univer s (ANCEF) 1-11 ity of 1,000 mg in 13:00: [place] NaCl 0.9% 00 Medical (NS) 50 mL Branch MINI-BAG ceFAZolin 2021-0 Yes 1000mg Univer s (ANCEF) 1-11 ity of 1,000 mg in 13:00: [place] NaCl 0.9% 00 Medical (NS) 50 mL Branch MINI-BAG LORazepam 2021-0 Yes 1mg Take 1 mg Uni vers (ATIVAN) 1 1-07 by mouth 3 ity of mg tablet 10:57: (three) [place] 22 times Medical daily. Branch acetaminoph 2021-0 Yes 1000mg Take 1,000 Univers en (TYLENOL 1-07 mg by ity of EXTRA 10:57: mouth [place] STRENGTH) 22 every 6 Medical 500 mg (six) Branch tablet hours as needed for Pain. amoxicillin 1-0 Yes 500mg Take 500 U nivers 500 mg 1-07 mg by ity of capsule 10:57: mouth 3 [place] 22 (three) Medical times Branch daily. LORazepam 2021-0 Yes 1mg Take 1 mg Uni vers (ATIVAN) 1 1-07 by mouth 3 ity of mg tablet 10:57: (three) [place] 22 times Medical daily. Branch acetaminoph 2021-0 Yes 1000mg Take 1,000 Univers en (TYLENOL 1-07 mg by ity of EXTRA 10:57: mouth [place] STRENGTH) 22 every 6 Medical 500 mg (six) Branch tablet hours as needed for Pain. amoxicillin 2021-0 Yes 500mg Take 500 U nivers 500 mg 1-07 mg by ity of capsule 10:57: mouth 3 [place] 22 (three) Medical times Branch daily. LORazepam 2021-0 Yes 1mg Take 1 mg Uni vers (ATIVAN) 1 1-07 by mouth 3 ity of mg tablet 10:57: (three) [place] 22 times Medical daily. Branch acetaminoph 2021-0 Yes 1000mg Take 1,000 Univers en (TYLENOL 1-07 mg by ity of EXTRA 10:57: mouth [place] STRENGTH) 22 every 6 Medical 500 mg (six) Branch tablet hours as needed for Pain. amoxicillin 2021-0 Yes 500mg Take 500 U nivers 500 mg 1-07 mg by ity of capsule 10:57: mouth 3 [place] 22 (three) Medical times Branch daily. LORazepam Yes 1mg Take 1 mg Uni vers (ATIVAN) 1 1-07 by mouth 3 ity of mg tablet 10:57: (three) [place] 22 times Medical daily. Branch acetaminoph Yes 1000mg Take 1,000 Univers en (TYLENOL 1-07 mg by ity of EXTRA 10:57: mouth [place] STRENGTH) 22 every 6 Medical 500 mg (six) Branch tablet hours as needed for Pain. amoxicillin Yes 500mg Take 500 U nivers 500 mg 1-07 mg by ity of capsule 10:57: mouth 3 [place] 22 (three) Medical times Branch daily. OMEPRAZOLE Yes [id number] TAKE 1 Univers 20 mg 9-03 CAPSULE BY ity of capsule 00:00: MOUTH ONCE [place] DA[place] [facility] Branch OMEPRAZOLE 2018-0 Yes [id number] TAKE 1 Univers 20 mg 9-03 CAPSULE BY ity of capsule 00:00: [place]TH [place]CE [place] [facility] Branch OMEPRAZOLE 2019-0 Yes [id number] TAKE 1 Univers 20 mg 9-03 CAPSULE BY ity of capsule 00:00: [place]TH [place]CE [place] [facility] Branch OMEPRAZOLE 2019-0 Yes [id number] TAKE 1 Univers 20 mg 9-03 CAPSULE BY ity of capsule 00:00: [place]CE [place] [address] [facility] busPIRone 0 Yes Univers 30 mg 8-20 ity of tablet 00:00: [facility] busPIRone 2018-0 Yes Univers 30 mg 8-20 ity of tablet 00:00: [place] [facility] busPIRone 2018-0 Yes Univers 30 mg 8-20 ity of tablet 00:00: [place] [facility] busPIRone 2018-0 Yes Univers 30 mg 8-20 ity of tablet 00:00: [place] [facility] busPIRone 2017-[address] Joy rs 15 mg 2- MADISYN, ity of tablet 00:00: [facility] venlafaxine 2017-[address] Lawrence vers XR 75 mg 24 2-11 MADISYN, ity of hr capsule 00:00: SETH [place] [facility] busPIRone 2017-[address] Joy rs 15 mg 09-05, ity of tablet 00:00: [facility] venlafaxine Yes Per Dr. Lawrence vers XR 75 mg 24 09-05, ity of hr capsule 00:00: [facility] busPIRone [address] Joy rs 15 mg 09-05, ity of tablet 00:00: [facility] venlafaxine Yes Per Dr. Melinda horn XR 75 mg 24 09-05, ity of hr capsule 00:00: [facility] busPIRone Yes Per Dr. Joy rs 15 mg 09-05, ity of tablet 00:00: [facility] venlafaxine Yes Per Dr. Melinda horn XR 75 mg 24 09-05, ity of hr capsule 00:00: [facility] polyethylen 2017-0 Yes [id number] 17g Take 17 g Univers e glycol 7-05 by mouth ity of (MIRALAX) 00:00: daily. [place] Medical gram/dose Branch powder polyethylen 2016-0 Yes [id number] 17g Take 17 g Univers e glycol 7-05 by mouth ity of (MIRALAX) 00:00: daily. [place] [facility] gram/dose Branch powder polyethylen 2016-0 Yes [id number] 17g Take 17 g Univers e glycol 7-05 by mouth ity of (MIRALAX) 00:00: daily. [place] [facility] gram/dose Branch powder polyethylen 2016-0 Yes [id number] 17g Take 17 g Univers e glycol 7-05 by mouth ity of (MIRALAX) 00:00: daily. [place] Medical gram/dose Branch powder buPROPion 2015-0 Yes [id number] 150mg Take 1 U nivers XL 9-07 tablet by ity of (WELLBUTRIN 00:00: mouth [place] XL) 150 mg 00 daily. Medical 24 hr Branch tablet buPROPion 0 Yes [id number] 150mg Take 1 U nivers XL 9-07 tablet by ity of (WELLBUTRIN 00:00: mouth [place] XL) 150 mg 00 daily. Medical 24 hr Branch tablet buPROPion Yes [id number] 150mg Take 1 U nivers XL 9-07 tablet by ity of (WELLBUTRIN 00:00: mouth [place] XL) 150 mg 00 daily. Medical 24 hr Branch tablet buPROPion Yes [id number] 150mg Take 1 U nivers XL 9-07 tablet by ity of (WELLBUTRIN 00:00: mouth [place] XL) 150 mg 00 daily. Medical 24 hr Branch tablet Immunizations Ordered Filled Immunization Date Status Comments Sour e Immunization Name Name Influenza Virus 2014-04-30 Completed Universit y of Vaccine (3+ yrs) 00:00:00 [facility] dical [place] Influenza Virus 2014-04-30 Completed Universit y of Vaccine (3+ yrs) 00:00:00 [facility] 2014-04-30 Completed Universit y of Vaccine (3+ yrs) 00:00:00 [facility] Influenza Virus 2014-04-30 Completed Universit y of Vaccine (3+ yrs) 00:00:00 [facility] Vital Signs Vital Name Observation Time Observation Value Comments Source Systolic blood 2021-08-05 21:26:00 123 mm[Hg] [facility] pressure [facility] [place] Diastolic blood 2021-08-05 21:26:00 80 mm[Hg] [facility] rs[facility] of pressure [facility] [place] Heart rate 2021-08-05 21:26:00 89 /min [facility] Body temperature 2021-08-05 21:26:00 35.78 Jeannette [facility] Respiratory rate 2021-08-05 21:26:00 18 /min [facility] Body height 2021-08-05 21:26:00 180.3 cm [facility] Body weight 2021-08-05 21:26:00 93.169 kg [facility] BMI 2021-08-05 21:26:00 28.65 kg/m2 [facility] Oxygen saturation in 2021-08-05 21:26:00 97 /min [facility] Arterial blood by [facility] Pulse oximetry Branch Procedures Procedure Date / Time Performed Performing Clinician Sour e US ABDOMEN LIMITED 2021-08-13 22:40:00 [facility] 2021-08-13 21:50:52 Doctor Unassigned, No [facility] Encounters Start End Encounter Admission Attending Care Care Encounter Source Date/Time Date/Time Type Type Clinicians Facility Department ID 2021-08-21 2021-08-21 Outpatient R AMAN [facility] [id number] Univers 15:30:00 15:30:00 CANDY ayon [facility] 2021-08-21 2021-08-21 Outpatient R HUGO [facility] [id number] Univers 14:15:00 14:15:00 ASHLEY [id number] [facility] 2021-08-21 2021-08-21 Outpatient R HUGO [facility] [id number] Univers 14:15:00 14:15:00 ASHLEY [facility] 2021-08-13 2021-08-13 Outpatient R AMAN [facility] [id number] Univers 15:53:10 23:59:00 CANDY ayon [facility] 2021-08-13 2021-08-13 Hospital [facility] [id number] Univers 15:53:10 23:59:00 Encounter [id number] [facility] [id number] [facility] [address] [place] 2021-08-13 2021-08-13 Outpatient R AMAN [facility] [id number] Univers 16:00:00 16:00:00 [facility] [id number] 2021-08-13 2021-08-13 Orders Doctor POWELL [id number] Univers 00:00:00 00:00:00 Only Unassigned, JOSHUA [id number] ity [place] [facility] [id number] [facility] [id number] [facility] 009 Branch 2021-08-05 2021-08-05 [facility] [id number] Univers 15:30:00 16:25:06 Visit Candy DESAI [id number] i ty of [place] [id number] [place] PROF[place] [id number] Me dical [address] 2020-07-23 2020-07-23 [facility] [id number] 00:00:00 00:00:00 Surgery Candy [place] [id number] [place] [id number] Professio [id number] [address] 2020-07-22 2020-07-22 Telephone [facility] [id number] 00:00:00 00:00:00 Candy [place] [id number] [place] [id number] Professio [id number] [address] 2020-04-19 2020-04-19 Orders Doctor POWELL [id number] 00:00:00 00:00:00 Only Unassigned, JOSHUA [id number] [place] [facility] [id number] [id number] 2020-04-19 2020-04-19 Telephone [facility] [id number] 00:00:00 00:00:00 Cnady [place] [id number] [place] [id number] Professio [id number] [address] 2020-04-01 2020-04-01 Telephone [facility] [id number] 00:00:00 00:00:00 Candy [place] [id number] [place] [id number] Professio [id number] [address] 2020-02-01 2020-02-01 Orders Doctor SHERRY [id number] 00:00:00 00:00:00 Only Unassigned, JOSHUA [id number] [place] [facility] [id number] [id number] 2020-01-15 2020-01-15 Orders Doctor SHERRY [id number] 00:00:00 00:00:00 Only Unassigned, JOSHAU [id number] [place] [facility] [id number] [id number] 2020-01-09 2020-01-09 Telephone Aman [facility] [id number] 00:00:00 00:00:00 Candy Desai [id number] [place] [id number] Profess [id number] [address] 2019-12-11 2019-12-11 Orders Doctor SHERRY [id number] 00:00:00 00:00:00 Only Unassigned, JOSHUA [id number] [place] [facility] [id number] 009 2019-03-28 2019-03-28 Refill Taisha Powell [facility] [id number] 00:00[facility]00 [facility] [id number] [facility] [id number] MEDICINE [id number] [place] 044 CLINIC Results This patient has no known results.
[2022-01-03 13:12] LABS: Absolute Lymphocytes (CBC) 2.4 K/uL (0.7-4.9); Hematocrit 40.7 % (36.0-45.0); Lymphocytes % 30.9 % (15.3-44.8); MPV 8.8 fL (7.6-11.3)
[2022-01-03 13:39] LABS: Thyroid Stimulating Hormone 0.82 uIU/mL (0.360-3.740); Troponin High Sensitivity 24.5 pg/mL (<58.9)
--- NOTE | 2022-01-03 14:37 | EDPHYS ---
Physician Documentation [facility] Name: Steph Olguin Age: 51 yrs Sex: Female : 1970 Arrival Date: 01/03/2022 Time: 12:50 Bed 20 Private MD: ED Physician Bandar Walker HPI: 01/03 14:50 This 51 yrs old Female presents to ER via EMS with complaints of palpitations. kb 14:50 The patient presents with a history of heart racing. Context: The symptoms occur with kb anxiety. Onset: The symptoms/episode began/occurred just prior to arrival. Duration: The patient or guardian reports a single episode. Modifying factors: The symptoms are aggravated by nothing. The symptoms are alleviated by nothing. Associated signs and symptoms: Pertinent positives: anxiety. Severity of symptoms: At their worst the symptoms were moderate in the emergency department the symptoms have improved. The patient has not experienced similar symptoms in the past. The patient has not recently seen a physician. Pt reports she had a panic attack and her heart rate wouldn't come down so she called 911. EMS found pt to be in SVT with a rate over 200. Adenosine 12mg IVP was given and pt converted into sinus rhythm with a rate in the 90s. Pt is feeling better now. Historical: - PMHx: 12:55 Anxiety; Depression; Panic Attacks; volvulus; WPW; carreon - Immunization history:: Adult Immunizations up to date. - Social history:: Smoking status: Patient denies any tobacco usage or history of. ROS: 14:48 Constitutional: Negative for fever, chills, and weight loss. kb 14:48 Cardiovascular: Positive for palpitations. 14:48 Psych: Positive for anxiety. 14:48 All other systems are negative. Exam: 14:48 Constitutional: This is a well developed, well nourished patient who is awake, alert, kb and in no acute distress. Head/Face: Normocephalic, atraumatic. ENT: Moist Mucous membranes Cardiovascular: Regular rate and rhythm with a normal S1 and S2. No gallops, murmurs, or rubs. No pulse deficits. Respiratory: Respirations even and unlabored. No increased work of breathing. Talking in full sentences Abdomen/GI: Soft, non-tender. No distention Skin: Warm, dry with normal turgor. Normal color. MS/ Extremity: Pulses equal, no cyanosis. Neurovascular intact. Full, normal range of motion. Neuro: Awake and alert, GCS 15, oriented to person, place, time, and situation. Moves all extremities. Normal gait. Psych: Awake, alert, with orientation to person, place and time. Behavior, mood, and affect are within normal limits. 14:48 ECG was reviewed by the Attending Physician. Vital Signs: 12:51 BP 101 / 71; Pulse 89; Resp 18; Temp 97.9(O); Pulse Ox 100% ; Weight 90.72 kg; Height 5 carreon ft. 11 in. (180.34 cm); 12:51 Body Mass Index 27.89 (90.72 kg, 180.34 cm) carreon MDM: 12:51 Patient medically screened. kb 14:48 Data reviewed: vital signs, nurses notes. Data interpreted: Pulse oximetry: on room air kb is 100 %. Interpretation: normal. Counseling: I had a detailed discussion with the patient and/or guardian regarding: the historical points, exam findings, and any diagnostic results supporting the discharge/admit diagnosis, lab results, radiology results, the need for outpatient follow up, a rand maker, to return to the emergency department if symptoms worsen or persist or if there are any questions or concerns that arise at home. ED course: Pt feeling better and ready to go home. . 01/03 12:52 Order name: Basic Metabolic Panel; Complete Time: 13:40 kb 01/03 12:52 Order name: CBC with Diff; Complete Time: 13:18 kb 01/03 12:52 Order name: D-Dimer; Complete Time: 13:22 kb 01/03 12:52 Order name: Troponin HS; Complete Time: 13:40 kb 01/03 12:52 Order name: XRAY Chest (1 view) kb 01/03 12:52 Order name: TSH; Complete Time: 13:40 kb 01/03 12:52 Order name: EKG; Complete Time: 12:53 kb 01/03 12:52 Order name: Cardiac monitoring; Complete Time: 13:05 kb 01/03 12:52 Order name: EKG - Nurse/Tech; Complete Time: 12:58 kb 01/03 12:52 Order name: IV Saline Lock; Complete Time: 12:58 kb 01/03 12:52 Order name: Labs collected and sent; Complete Time: 13:05 kb 01/03 12:52 Order name: O2 Per Protocol 01/03 12:52 Order name: O2 Sat Monitoring kb EC:48 Rate is 87 beats/min. Rhythm is regular. QRS [place] is Normal. [place] interval is normal at kb 132 msec. QRS interval is normal at 96 msec. QT interval is normal at 457 msec. Administered Medications: No medications were administered Disposition: 15:23 Co-signature as Attending Physician, Bandar Walker MD I agree with the assessment and kdr plan of care. Disposition Summary: 01/03/22 14:36 Discharge Ordered Location: Home kb Condition: Stable kb Diagnosis - Supraventricular tachycardia kb Followup: kb - With: Emergency Department - When: As needed - Reason: Worsening of condition Followup: kb - With: Private Physician - When: 2 - 3 days - Reason: Recheck today's complaints, Continuance of care, Re-evaluation by your physician Followup: kb - With: Chago Collazo MD - When: 2 - 3 days - Reason: Recheck today's complaints Discharge Instructions: - Discharge Summary Sheet kb - Supraventricular Tachycardia, Adult, [id number] kb Forms: - Medication Reconciliation Form kb - Thank You Letter kb - Antibiotic Education kb - Prescription Opioid Use kb Signatures: Dispatcher [employer] EDMS Kylee Reese, ROMMEL FUCHS-Bandar Villeda MD MD [facility] Stacie Roper RN RN
--- NOTE | 2022-01-03 14:37 | ER ---
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 Coronavirus screen: Vaccine status: Patient reports receiving the 2nd dose of the covid vaccine. Ebola Screen: Patient denies travel to an Ebola-affected area in the 21 days before illness onset. Initial Sepsis Screen: Does the patient meet any 2 criteria? No. Patient's initial sepsis screen is negative. Does the patient have a suspected source of infection? No. Patient's initial sepsis screen is negative. Risk Assessment: Do you want to hurt yourself or someone else? Patient reports no desire to harm self or others. Onset of symptoms was January 03, 2022. 12:51 Method Of Arrival: EMS: [facility] carreon 12:51 Acuity: GRADY 3 carreon Triage Assessment: 12:56 General: Appears in no apparent distress. Behavior is calm, cooperative. carreon Historical: - PMHx: 12:55 Anxiety; Depression; Panic Attacks; volvulus; WPW; carreon - Immunization history:: Adult Immunizations up to date. - Social history:: Smoking status: Patient denies any tobacco usage or history of. Screenin:55 Abuse screen: Denies threats or abuse. Denies injuries from another. Nutritional carreon screening: No deficits noted. Tuberculosis screening: No symptoms or risk factors identified. Fall Risk IV access (20 points). Assessment: 12:53 Pain: Denies pain. Neuro: Level of Consciousness is awake, alert, obeys commands, carreon Oriented to person, place, time. Cardiovascular: Reports palpitations. Respiratory: Reports shortness of breath. Vital Signs: 12:51 BP 101 / 71; Pulse 89; Resp 18; Temp 97.9(O); Pulse Ox 100% ; Weight 90.72 kg; Height 5 carreon ft. 11 in. (180.34 cm); 12:51 Body Mass Index 27.89 (90.72 kg, 180.34 cm) carreon ED Course: 12:50 Patient arrived in ED. carreon 12:51 Kylee Reese FNP-C is [facility]. kb 12:51 Bandar Walker MD is Attending Physician. kb 12:53 Triage completed. carreon 12:54 Stacie Roper, RN is Primary Nurse. carreon 12:55 Patient has correct armband on for positive identification. Bed in low position. carreon 12:56 Arm band placed on. carreon 12:57 No provider procedures requiring assistance completed. Maintain EMS IV. Gauge \T\ site: carreon 20g lac. 12:59 EKG done, by ED staff, reviewed by Kylee CARNEY. em1 13:05 Basic Metabolic Panel Sent. mb7 13:05 CBC with Diff Sent. mb7 13:05 D-Dimer Sent. mb7 13:05 Troponin HS Sent. mb7 13:05 TSH Sent. mb7 14:36 Chago Collazo MD is Referral Physician. kb 14:46 XRAY Chest (1 view) In Process Unspecified. EDMS 14:46 IV discontinued, intact. carreon Administered Medications: No medications were administered Medication: 12:57 VIS not applicable for this client. carreon Outcome: 14:36 Discharge ordered by MD. kb 14:46 Discharged to home ambulatory. carreon 14:46 Condition: good 14:46 Discharge instructions given to patient. 14:46 Patient left the ED. carreon Signatures: Dispatcher [employer] EDMS Kylee Reese FNP-C FNP-Ckb Martinez, Eric em1 Bushra Hernandez mb7 Stacie Roper RN RN carreon
--- NOTE | 2022-01-03 15:18 | RAD REPORT ---
EXAM DESCRIPTION: RAD - Chest Single View - 01/03/2022 2:44 pm CLINICAL HISTORY: PALPITATIONS COMPARISON: Portable 10/02/2018 TECHNIQUE: AP portable chest image was obtained 01/03/2022 2:44 pm . FINDINGS: Lungs are clear. Heart and vasculature are normal. No measurable pleural effusion and no p neumothorax. No acute bony abnormality seen. No acute aortic findings suspected. IMPRESSION: No acute cardiopulmonary process. No significant change from comparison study.
[2022-01-03 15:28] VITALS: BP 101/71; TEMP 97.9; O2SAT 100
--- NOTE | 2022-01-05 13:38 | EKG ---
Test Date: 2022-01-03 Test Time: 12:51:18 [place] Man: KAREN MEASUREMENT RESULTS: Intervals: Rate: 87 ID: [id number] QRSD: 96 QT: 380 QTc: 457 [place]: P: 63 ID: [id number] QRS: 9 T: 57 INTERPRETIVE STATEMENTS: Normal sinus rhythm Inferior-posterior infarct, age undetermined Abnormal ECG Compared to ECG 11/29/2019 22:18:36 Myocardial infarct finding now present Ventricular preexcitation no longer present Electronically Signed On 01-05-22 13:35:22 CDT by Surjit Jain
== END 2022-01-03 14:46 | disposition home or self-care (01) ==
LOC: ER 12:49
DX: I47.1 Supraventricular tachycardia (principal); F41.9 Anxiety disorder, unspecified
CPT/HCPCS: 36415; 71045; 80048; 84443; 84484; 85025; 85379; 93005; 99284

== ENCOUNTER 2022-09-16 01:06 | Emergency (ER) | payer OTHER ==
--- OUTSIDE RECORDS SUMMARY | 2022-09-16 01:10 | XMS REPORT | Continuity of Care Document ---
:1970 Author Organization [facility] t Address [address] [place] [address] Care Team Providers Name Role Phone PCP, PATIENT DOES NOT HAVE A Primary Care Physician Unavaila ble CANDY NEWTON Attending Clinician Unavailable ASHLEY ARIAS Attending Clinician Unavailable Candy Newton MD Attending Clinician Doctor Unassigned, [place] Attending Clinician Unavailable Only, Adc Test Attending Clinician Unavailable Taisha Coto Attending Clinician CANDY NEWTON Admitting Clinician Unavailable Payers Payer Name Policy Type Policy Number Effective Date Expiration Date Lety matias [facility] [id number] 2012 00:00:00 PLUS Problems Condition Condition Condition Status Onset Resolution Last Treating Co mments Source Name Details Category Date Date Treatment Clinician Date Acute Acute Disease Active 2019-07 Overview: Univer s cholecysti cholecysti Formattin ity of tis tis 00:00: g of this [place] 00 note Medical might be Branch different from the original. Added automatic ally from request for surgery [id number] Hepatitis Hepatitis Disease Active 2013-07 Uni vers [...] Chronic Chronic Disease Active Univers cough cough 9- ity of 00:00: [place] 00 Medical Branch Anxiety Anxiety Disease Active Univers 9-04 ity of 00:00: Medical Branch Overweight Overweight Disease Active Overview : Univers 03-29 Formattin ity of 00:00: g of this 00 note Medical might be Branch different from the original. 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 Elevated Disease Active Unive rs blood blood 03-29 ity of pressure pressure 00:00: [place] [facility] Atypical Atypical Disease Active Unive rs chest pain chest pain 03-29 it y of 00:00: [place] [facility] Tobacco Tobacco Disease Active Univers abuse abuse 03-29 ity of 00:00: [facility] Allergies, Adverse Reactions, Alerts Allergy Allergy Status Severity Reaction(s) Onset Inactive Treating Comm ents Source Name Type Date Date Clinician NO KNOWN Drug Active [facility] ALLERGIE Class ity of S [facility] Social History Social Habit Start Date Stop Date Quantity Comments Source History of tobacco Cigarette Smoker University of use [facility] Exposure to Not sure [place] of SARS-CoV-2 (event) [facility] Alcohol intake 2021-08-05 2021-08-05 0 /d University of 00:00:00 00:00:00 [facility] Cigarettes smoked 2013-03-29 2013-03-29 Univers ity of current (pack per 00:00:00 00:00:00 ) - Reported Branch Cigarette 2013-03-29 2013-03-29 University of pack-years 00:00:00 00:00:00 [facility] Tobacco use and 2013-03-29 2013-03-29 Never used Universit y of exposure 00:00:00 00:00:00 [facility] Sex Ass[birth year] Universit y of 00:00:00 00:00:00 [facility] Smoking Status Start Date Stop Date Source Current every day smoker 2013-03-29 00:00:00 Uni versity of [facility] Medications Ordered Filled Start Stop Current Ordering [...] 3 ity of mg tablet 10:57: (three) [place] 22 times Medical daily. Branch acetaminoph Yes 1000mg Take 1,000 Univers en (TYLENOL 1-07 mg by ity of EXTRA 10:57: mouth [place] STRENGTH) 22 every 6 Medical 500 mg (six) Branch tablet hours as needed for Pain. amoxicillin Yes 500mg Take 500 U nivers 500 mg 1-07 mg by ity of capsule 10:57: mouth 3 [place] 22 (three) Medical times Branch daily. OMEPRAZOLE Yes [id number] TAKE 1 Univers 20 mg 9-03 CAPSULE BY ity of capsule 00:00: [place]CE [place] DAILY [facility] Branch OMEPRAZOLE 2018-0 Yes [id number] TAKE 1 Univers 20 mg 9-03 CAPSULE BY ity of capsule 00:00: [place]CE [place] 00 DA[place] [facility] Branch OMEPRAZOLE 2018-0 Yes [id number] TAKE 1 Univers 20 mg 9-03 CAPSULE BY ity of capsule 00:00: [place]TH ONCE [place] [facility] Branch OMEPRAZOLE 2018-0 Yes [id number] TAKE 1 Univers 20 mg 9-03 CAPSULE BY ity of capsule 00:00: [place]TH ONCE [place] [facility] Branch busPIRone Yes Univers 30 mg 8-20 ity of tablet 00:00: [facility] Branch busPIRone Yes Univers 30 mg 8-20 ity of tablet 00:00: [place] [facility] busPIRone Yes Univers 30 mg 8-20 ity of tablet 00:00: [place] [facility] busPIRone Yes Univers 30 mg 8-20 ity of tablet 00:00: [facility] busPIRone Yes Per Dr. Joy rs 15 mg 2-11 MADISYN, ity of tablet 00:00: SETH [place] LEDY [facility] venlafaxine Yes Per Dr. Lawrence vers XR 75 mg 24 2-11 MADISYN, ity of hr capsule 00:00: [facility] busPIRone Yes Per Dr. Joy rs 15 mg 09-05, ity of tablet 00:00: SETH [facility] venlafaxine Yes Per Dr. Lawrence vers XR 75 mg 24 09-05, ity of hr capsule 00:00: [facility] busPIRone Yes Per Dr. Joy rs 15 mg 09-05, ity of tablet 00:00: [facility] venlafaxine Yes Per Dr. Melinda horn XR 75 mg 24 09-05, ity of hr capsule 00:00: [facility] busPIRone Yes Per Dr. Joy rs 15 mg 09-05, ity of tablet 00:00: [facility] venlafaxine Yes Per Dr. Melinda horn XR 75 mg 24 09-05, ity of hr capsule 00:00: [facility] polyethylen 2017-0 Yes [id number] 17g Take 17 g Univers e glycol 7-05 by mouth ity of (MIRALAX) 00:00: daily. [place] Medical gram/dose Branch powder polyethylen 2016-0 Yes [id number] 17g Take 17 g Univers e glycol 7-05 by mouth ity of (MIRALAX) 00:00: daily. [place] Medical gram/dose Branch powder polyethylen 2016-0 Yes [id number] 17g Take 17 g Univers e glycol 7-05 by mouth ity of (MIRALAX) 00:00: daily. [place] [facility] gram/dose Branch powder polyethylen 2016-0 Yes [id number] 17g Take 17 g Univers e glycol 7-05 by mouth ity of (MIRALAX) 00:00: daily. [place] Medical gram/dose Branch powder buPROPion 2016-0 Yes [id number] 150mg Take 1 U nivers XL 9-07 tablet by ity of (WELLBUTRIN 00:00: mouth [place] XL) 150 mg 00 daily. Medical 24 hr Branch tablet buPROPion Yes [id number] 150mg Take 1 U nivers XL 9-07 tablet by ity of (WELLBUTRIN 00:00: mouth [place] XL) 150 mg 00 daily. Medical 24 hr Branch tablet buPROPion Yes [id number] 150mg Take 1 U nivers XL 9-07 tablet by ity of (WELLBUTRIN 00:00: mouth [place] XL) 150 mg 00 daily. Medical 24 hr Branch tablet buPROPion Yes [id number] 150mg Take 1 U nivers XL 9-07 tablet by ity of (WELLBUTRIN 00:00: mouth [place] XL) 150 mg 00 daily. Medical 24 hr Branch tablet Immunizations Ordered Filled Immunization Date Status Comments [facility] e Immunization Name Name Influenza Virus 2014-04-30 Completed Universit y of Vaccine (3+ yrs) 00:00:00 [facility] [place] [facility] Influenza Virus 2014-04-30 Completed Universit y of Vaccine (3+ yrs) 00:00:00 [facility] [place] [facility] Influenza Virus 2014-04-30 Completed Universit y of Vaccine (3+ yrs) 00:00:00 [facility] [place] [facility] Influenza Virus 2014-04-30 Completed Universit y of Vaccine (3+ yrs) 00:00:00 [facility] [place] [facility] Vital Signs Vital Name Observation Time Observation Value Comments Source Systolic blood 2021-08-05 21:26:00 123 mm[Hg] [facility] [place] [facility] pressure [facility] Diastolic blood 2021-08-05 21:26:00 80 mm[Hg] Unive rsity of [facility] Heart rate 2021-08-05 21:26:00 89 /min [facility] Body temperature 2021-08-05 21:26:[address] [facility] Respiratory rate 2021-08-05 21:26:00 18 /min [facility] [place] [facility] Body height 2021-08-05 21:26:00 180.3 cm [facility] Body weight 2021-08-05 21:26:00 93.169 kg [facility] BMI 2021-08-05 21:26:00 28.65 kg/m2 [facility] Oxygen saturation in 2021-08-05 21:26:00 97 /min University Arterial blood by [facility] Pulse oximetry Branch Procedures Procedure Date / Time Performed Performing Clinician Sourc e US ABDOMEN LIMITED 2021-08-13 22:40:00 Candy Newton [facility] ASSIGNMENT OF BENEFITS 2021-08-13 21:50:52 Doctor Unassigned, No [facility] Encounters Start End Encounter Admission Attending Care Care Encounter Source Date/Time Date/Time Type Type Clinicians Facility Department ID 2022-04-07 Outpatient [facility] [id number] Legacy 16:57:03 Formerly [facility] 2021-05-24 Outpatient Antoinette NEWTON [facility] TEE [id number] Univers 14:53:31 CANDY roz [facility] 2021-08-21 2021-08-21 Outpatient Antoinette NEWTON [facility] [id number] Univers 15:30:00 15:30:00 CANDY [facility] 2021-08-21 2021-08-21 Outpatient Antoinette ARIAS [facility] [id number] Univers 14:15:00 14:15:00 ASHLEY [facility] 2021-08-13 2021-08-13 Outpatient R DAE [facility] [id number] Univers 15:53:10 23:59:00 CANDY [facility] 2021-08-13 2021-08-13 Hospital [facility] [id number] Univers 15:53:10 23:59:00 Encounter Candy LERNER [id number] ity of [place] [id number] [facility] [id number] [facility] 806 Branch 2021-08-13 2021-08-13 Orders Doctor POWELL 1.2.840.114 [id number] Univers 00:00:00 00:00:00 Only Unassigned, JOSHUA [id number] ity of [place] [facility] [id number] [facility] [id number] [facility] 009 Branch 2021-08-05 2021-08-05 [facility] [id number] Univers 15:30:00 16:25:06 CANDY ayon [facility] 2021-08-05 2021-08-05 [facility] [id number] Univers 15:30:00 16:25:06 Visit Candy BARLOWFRANC [id number] i ty of [id number] [phone] Ny dical NAL 188 [facility] 2021-08-05 2021-08-05 Orders Doctor SHERRY 1.2.840.114 [id number] Univers 00:00:00 00:00:00 Only Unassigned, JOSHUA [id number] ity of [place] [facility] [id number] Kvng as [phone] [address] 2020-08-02 2020-08-02 Laboratory Only, Adc Test [facility] 1.2.840. [id number] Univers 15:12:29 15:27:29 Only Candy Newton [id number] ity of [place] 4[place]2.7.2.[place] [phone] [facility] [address] 2020-08-02 2020-08-02 [facility] [id number] Univers 14:15:00 14:15:00 CANDY ayon [facility] 2020-08-02 2020-08-02 Orders Doctor SHERRY 1.2.840.114 [id number] Univers 00:00:00 00:00:00 Only UnassignedJOSHUA [id number] ity of [place] [facility] [id number] Kvng as [phone] [address] 2020-08-01 2020-08-01 [facility] [id number] Univers 10:45:10 11:30:38 Visit Candy Barlowton [id number] i ty of [place] [phone] Ny dical nal 188 [facility] 2020-08-01 2020-08-01 [facility] [id number] Univers 10:30:00 10:30:00 CANDY nany of [facility] 2020-07-23 2020-07-23 Prep For [facility] 1.2.840.114 [id number] Univers 00:00:00 00:00:00 Surgery Candy Lerner [id number] i ty [place]2.[place] [phone] Ny dical nal 188 [facility] 2020-07-23 2020-07-23 Prep For [facility] 1.2.840.114 [id number] 00:00:00 00:00:00 Surgery Candy Lerner [id number] [place] 4.2.7.2.686 Professio [phone] [address] 2020-07-22 2020-07-22 Telephone [facility] 1.2.840.114 [id number] Univers 00:00:00 00:00:00 Candy Lerner [id number] i ty [place]2.[place] [phone] Ny dical nal [address] [place] [address] 2020-07-22 2020-07-22 Telephone [facility] 1.2.840.114 [id number] 00:00:00 00:00:00 Candy Lerner [id number] [place] [id number] Professio [phone] [address] 2020-04-19 2020-04-19 Orders Doctor POWELL 1.2.840.114 [id number] Univers 00:00:00 00:00:00 Only Unassigned, JOSHUA [id number] ity of [place] [facility] 4.2.7.2.686 Kvng as [id number] [address] 2020-04-19 2020-04-19 Telephone [facility] 1.2.840.114 [id number] Univers 00:00:00 00:00:00 Candy Lloyd [id number] i ty [place] 4[place]2.[place] [phone] Ny dical [facility] 377 [facility] 2020-04-19 2020-04-19 Orders Doctor SHERRY 1.2.840.114 [id number] 00:00:00 00:00:00 Only Unassigned, JOSHUA [id number] [place] [facility] 4.2.7.2.686 [id number] 2020-04-19 2020-04-19 Telephone [facility] 1.2.840.114 [id number] 00:00:00 00:00:00 Candy Lerner [id number] [place] 4.2.7.2.686 Professio [phone] [address] 2020-04-01 2020-04-01 Telephone [facility] 1.2.840.114 [id number] Univers 00:00:00 00:00:00 Candymelia Lerner [id number] i ty of [place] 4[place]2.[place] [phone] Ny dical [address] 2020-04-01 2020-04-01 Telephone [facility] 1.2.840.114 [id number] 00:00:00 00:00:00 Candymelia Lerner [id number] [place] 4.2.7.2.686 Professio [phone] [address] 2020-02-01 2020-02-01 Orders Doctor SHERRY 1.2.840.114 [id number] 00:00:00 00:00:00 Only Unassigned, JOSHUA 350.1.13.10 [place] [facility] 4.2.7.2.686 [id number] [facility] 2020-02-01 2020-02-01 Orders Doctor SHERRY 1.2.840.114 [id number] Univers 00:00:00 00:00:00 Only Unassigned, JOSHUA [id number] ity of [place] [facility] 4.2.7.2.686 Kvng as [phone] [address] 2020-01-15 2020-01-15 Orders Doctor SHERRY 1.2.840.114 [id number] 00:00:00 00:00:00 Only Unassigned, JOSHUA 350.1.13.10 [place] [facility] 4.2.7.2.686 [id number] 2020-01-15 2020-01-15 Orders Doctor SHERRY 1.2.840.114 [id number] Univers 00:00:00 00:00:00 Only Unassigned, JOSHUA 350.1.13.10 ity of [place] [facility] 4.2.7.2.686 Kvng as [id number] [address] 2020-01-09 2020-01-09 Telephone [facility] 1.2.840.114 [id number] 00:00:00 00:00:00 Candy Barlowton 350.1.13.10 [place] 4.2.7.2.686 Professio [phone] [address] 2020-01-09 2020-01-09 Telephone [facility] 1.2.840.114 [id number] Univers 00:00:00 00:00:00 Candy Barlowton 350.1.13.10 i ty of [place] 4[place] [phone] Ny dical [address] 2019-12-26 2019-12-26 Outpatient R [facility] [id number] [facility] 15:30:00 15:30:00 CANDY ayon [facility] 2019-12-11 2019-12-11 Orders Doctor SHERRY 1.2.840.114 [id number] 00:00:00 00:00:00 Only Unassigned, JOSHUA 350.1.13.10 [place] [facility] 4.2.7.2.686 [id number] [facility] 2019-12-11 2019-12-11 Orders Doctor POWELL 1.2.840.114 [id number] Univers 00:00:00 00:00:00 Only Unassigned, JOSHUA 350.1.13.10 ity of [place] [facility] 4.2.7.2.686 Kvng as [id number] [address] 2019-03-28 2019-03-28 Refill Taisha Powell [facility] 1.2.840.114 [id number] 00:00:00 00:00:00 [employer] [id number] FAMILY [id number] MEDICINE [id number] [address] 2019-03-28 2019-03-28 Refziggy Taisha Powell [facility] 1.2.840.114 [id number] Univers 00:00:00 00:00:00 Prognosis [employer] [id number] it y of FAMILY 4.2.7.2.686 [facility] [facility] [phone] [place] [address] Branch CLINIC Results This patient has no known results.
[2022-09-16] MEDS ORDERED: MAGNES/ALUMIN/SIMET 30ML UCUP ONE (02:01)
[2022-09-16] MEDS ORDERED: LORazepam 2 MG/ML VIAL ONE (02:02)
[2022-09-16] MEDS ORDERED: LIDOCAINE VISCOUS 2% SOLN 15 ML UDC ONE (02:02)
[2022-09-16 02:42] LABS: Absolute Lymphocytes (CBC) 0.5 K/uL (0.7-4.9); Hematocrit 33.7 % (36.0-45.0); Lymphocytes % 6.3 % (15.3-44.8); MCV 91.1 fL (80-100)
[2022-09-16 02:43] LABS: SARS-COV-2 RT PCR POSITIVE (NEGATIVE)
[2022-09-16 02:51] LABS: Potassium 3.7 mmol/L (3.5-5.1); Troponin High Sensitivity 3.7 pg/mL (<58.9)
--- NOTE | 2022-09-16 05:00 | ER ---
Nurse's Notes [facility] Name: Steph Olguin Age: 52 yrs Sex: Female : 1970 Arrival Date: 09/16/2022 Time: 01:09 Bed 15 Private MD: Diagnosis: Palpitations;Headache;Anxiety disorder, unspecified;Acute pharyngitis, unspecified;Panic disorder [episodic paroxysmal anxiety] without agoraphobia;Agoraphobia with panic disorder;SARS-associated coronavirus as the cause of diseases classified elsewhere Presentation: 09/16 01:17 Chief complaint: Patient states: sore throat began today concerned that meds she has kl been taking for 2 years are reacting with each other takes ativan 1 mg TID and Ultram 50 mg x 2 tabs in am read on Wednesday that those medications should not be taken together has been of ultram since Wednesday. Coronavirus screen: Vaccine status: Patient reports being unvaccinated. Ebola Screen: Patient negative for fever greater than or equal to 101.5 degrees Fahrenheit, and additional compatible Ebola Virus Disease symptoms. Initial Sepsis Screen: Does the patient meet any 2 criteria? No. Patient's initial sepsis screen is negative. Does the patient have a suspected source of infection? No. Patient's initial sepsis screen is negative. Risk Assessment: Do you want to hurt yourself or someone else? Patient reports no desire to harm self or others. 01:17 Method Of Arrival: EMS: [facility] 01:17 Acuity: GRADY 3 kl 01:23 Note pt reports took covid test with positive result but it was . 05:18 Onset of symptoms was September 13, 2022. Triage Assessment: 01:24 General: Appears distressed, uncomfortable, Behavior is anxious, crying, restless. Pain: Complains of pain in thoat. EENT: Reports difficulty swallowing since today pain in throat when swallowing Pain is 10 out of 10 on a pain scale. Neuro: Level of Consciousness is awake, alert, obeys commands, Oriented to person, place, time, situation. Cardiovascular: No deficits noted. Respiratory: No deficits noted. GI: No deficits noted. No signs and/or symptoms were reported involving the gastrointestinal system. : No deficits noted. No signs and/or symptoms were reported regarding the genitourinary system. Derm: No deficits noted. No signs and/or symptoms reported regarding the dermatologic system. Musculoskeletal: No deficits noted. No signs and/or symptoms reported regarding the musculoskeletal system. 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 LMP N/A - Hysterectomy Historical: - Home Meds: 01:41 buspirone 30 mg Oral tab 1 tab 2 times per day [Active]; venlafaxine 75 mg oral cp24 1 kl cap once daily [Active]; metoprolol tartrate 50 mg Oral tab 1 tab once daily [Active]; omeprazole 20 mg Oral cpDR 1 cap once daily [Active]; lorazepam 1 mg Oral tab 1 tab 3 times per day [Active]; tramadol 50 mg Oral tab 1 tab TID [Active]; famotidine 20 mg Oral tab 1 tab once daily [Active]; naloxoxone [Active]; - PMHx: 01:22 Anxiety; Depression; Panic Attacks; volvulus; kl 01:30 SVT; kl - PSHx: 01:22 None; kl - Immunization history:: Adult Immunizations not up to date. - Social history:: Smoking status: Patient reports the use of cigarette tobacco products. Screenin:40 [facility] ED Fall Risk Assessment (Adult) History of falling in the last 3 months, including since admission No falls in past 3 months (0 pts) Confusion or Disorientation No (0 pts) Intoxicated or Sedated No (0 pts) Impaired Gait No (0 pts) Mobility Assist Device Used No (0 pt) Altered Elimination No (0 pt) Score/Fall Risk Level 0 - 2 = Low Risk. Abuse screen: Denies threats or abuse. Nutritional screening: No deficits noted. Tuberculosis screening: No symptoms or risk factors identified. Assessment: 01:40 Reassessment: see triage assessmenr. 02:45 Reassessment: Patient appears in no apparent distress at this time. Patient is alert, aa9 oriented x 3, equal unlabored respirations, skin warm/dry/pink. Patient is alert/active/playful, equal unlabored respirations, skin warm/dry/pink. Vital Signs: 01:17 BP 147 / 84; Pulse 97; Resp 20; Temp 97(TE); Pulse Ox 100% ; Weight 98.88 kg (M); kl Height 5 ft. 10 in. (177.80 cm); Pain 10/10; 02:09 BP 141 / 77; Pulse 97; Resp 18; Pulse Ox 100% on R/A; kl 05:17 BP 137 / 64; Pulse 80; Resp 18; Pulse Ox 98% on R/A; kl 01:17 Body Mass Index 31.28 (98.88 kg, 177.80 cm) ED Course: 01:09 Patient arrived in ED. rv1 01:13 Bandar Walker MD is Attending Physician. kdr 01:22 Triage completed. kl 01:50 Missed attempt(s): 20 gauge in right antecubital area. pf1 02:00 Inserted saline lock: 22 gauge in left antecubital area, using aseptic technique. Blood pf1 collected. 02:02 Strep Sent. kl 02:02 COVID-19/FLU A+B Sent. kl 02:14 No provider procedures requiring assistance completed. pf1 02:25 Basic Metabolic Panel Sent. kl 02:25 CBC with Diff Sent. kl 02:25 Troponin HS Sent. kl 04:44 No apparent distress. Resting quietly. Appears to be sleeping. aa9 05:17 IV discontinued, intact, bleeding controlled, No redness/swelling at site. Pressure kl dressing applied. 05:17 Patient has correct armband on for positive identification. kl 05:18 Arm band placed on left wrist. EKG completed in triage. Results shown to MD. Administered Medications: 02:02 Drug: GI Cocktail without - (Maalox Suspension 30 ml, Lidocaine Liquid 2 % 15 kl ml) Route: PO; 02:10 Drug: Ativan (LORazepam) 1 mg Route: IVP; Site: left antecubital; pf1 Medication: 05:18 VIS not applicable for this client. Outcome: 04:59 Discharge ordered by . kdr 05:17 Discharged to home ambulatory. kl 05:17 Condition: stable 05:17 Discharge instructions given to patient, Instructed on discharge instructions, follow up and referral plans. Demonstrated understanding of instructions, follow-up care. 05:19 Patient left the ED. Signatures: Ivanna Nash RN RN kl Rittger, Kevin, MD MD kdr Avalos, Aylin, RN RN aa9 Ashlyn valencia RN RN pf1 Stephy Foster rv1 Corrections: (The following items were deleted from the chart) 01:27 01:22 Allergies: No Known Allergies; kl kl 01:22 PMHx: WPW; kl kl : 01:27 Allergies: SVT; kl kl 02: 02:14 Inserted saline lock: 22 gauge in left antecubital area, using aseptic technique. pf1 Blood collected. pf1
--- NOTE | 2022-09-16 05:00 | EDPHYS ---
Physician Documentation [facility] Name: Steph Olguin Age: 52 yrs Sex: Female : 1970 Arrival Date: 09/16/2022 Time: 01:09 Bed 15 Private MD: ED Physician Bandar Walker HPI: 09/16 01:49 This 52 yrs old Female presents to ER via EMS with complaints of phayrngitis. kdr 01:49 This 52 yrs old Female presents to ER via EMS with complaints of anxiety. kdr 03:09 Patient presents to the ED with multiple complaints that started on Wednesday. Patient kdr presents with a constellation of symptoms that started from her head and literally descend through nearly every organ system to her toes. She complains of headache shooting headache that is transient and intermittent, she complains of sore throat, the worst she has ever had, she complains of chest pain and back pain. She also complains of lower extremity pain and aching all the way to her toes. She states that she took a home COVID test which had but did show a positive result.. Onset: The symptoms/episode began/occurred suddenly, 3 day(s) ago. Severity of symptoms: At their worst the symptoms were moderate severe incapacitating in the emergency department the symptoms have improved mildly. The patient has not experienced similar symptoms in the past. The patient has not recently seen a physician. 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 - Hysterectomy kl Historical: - Home Meds: 01:41 buspirone 30 mg Oral tab 1 tab 2 times per day [Active]; venlafaxine 75 mg oral cp24 1 kl cap once daily [Active]; metoprolol tartrate 50 mg Oral tab 1 tab once daily [Active]; omeprazole 20 mg Oral cpDR 1 cap once daily [Active]; lorazepam 1 mg Oral tab 1 tab 3 times per day [Active]; tramadol 50 mg Oral tab 1 tab TID [Active]; famotidine 20 mg Oral tab 1 tab once daily [Active]; naloxoxone [Active]; - PMHx: 01:22 Anxiety; Depression; Panic Attacks; volvulus; kl 01:30 SVT; kl - PSHx: :22 None; kl - Immunization history:: Adult Immunizations not up to date. - Social history:: Smoking status: Patient reports the use of cigarette tobacco products. ROS: 03:09 Constitutional: Negative for fever, chills, and weight loss, Eyes: Negative for injury, kdr pain, redness, and discharge, Neck: Negative for injury, pain, and swelling, Cardiovascular: Negative for chest pain, palpitations, and edema, Respiratory: Negative for shortness of breath, cough, wheezing, and pleuritic chest pain, Back: Negative for injury and pain, : Negative for injury, bleeding, discharge, and swelling, MS/Extremity: Negative for injury and deformity, Skin: Negative for injury, rash, and discoloration, Neuro: Negative for headache, weakness, numbness, tingling, and seizure activity. Psych: Negative for depression, anxiety, suicide ideation, homicidal ideation, and hallucinations, Allergy/Immunology: Negative for hives, rash, and allergies, Endocrine: Negative for neck swelling, polydipsia, polyuria, polyphagia, and marked weight changes, Hematologic/Lymphatic: Negative for swollen nodes, abnormal bleeding, and unusual bruising. 03:09 Abdomen/GI: Positive for Patient has multiple complaints including headache chest pain abdominal pain sore throat generalized myalgias and arthralgias that extend all the way to her toes.. Exam: 03:09 Constitutional: This is a well developed, well nourished patient who is awake, alert, kdr and in no acute distress. Head/Face: Normocephalic, atraumatic. Eyes: Pupils equal round and reactive to light, extra-ocular motions intact. Lids and lashes normal. Conjunctiva and sclera are non-icteric and not injected. Cornea within normal limits. Periorbital areas with no swelling, redness, or edema. Neck: Trachea midline, no thyromegaly or masses palpated, and no cervical lymphadenopathy. Supple, full range of motion without nuchal rigidity, or vertebral point tenderness. No Meningismus. Chest/axilla: Normal chest wall appearance and motion. Nontender with no deformity. No lesions are appreciated. Cardiovascular: Regular rate and rhythm with a normal S1 and S2. No gallops, murmurs, or rubs. Normal PMI, no JVD. No pulse deficits. Respiratory: Lungs have equal breath sounds bilaterally, clear to auscultation and percussion. No rales, rhonchi or wheezes noted. No increased work of breathing, no retractions or nasal flaring. Abdomen/GI: Soft, non-tender, with normal bowel sounds. No distension or tympany. No guarding or rebound. No evidence of tenderness throughout. Back: No spinal tenderness. No costovertebral tenderness. Full range of motion. Skin: Warm, dry with normal turgor. Normal color with no rashes, no lesions, and no evidence of cellulitis. MS/ Extremity: Pulses equal, no cyanosis. Neurovascular intact. Full, normal range of motion. Neuro: Awake and alert, GCS 15, oriented to person, place, time, and situation. Cranial nerves II-XII grossly intact. Motor strength 5/5 in all extremities. Sensory grossly intact. Cerebellar exam normal. Normal gait. 03:09 Psych: Behavior/mood is anxious, inappropriate for age, Affect is animated, Oriented to person, place, time, Patient has no thoughts/intents to harm self or others. Judgement / Insight is impaired. Concern for her safety and health. Delusions/hallucinations are not present. Vital Signs: 01:17 BP 147 / 84; Pulse 97; Resp 20; Temp 97(TE); Pulse Ox 100% ; Weight 98.88 kg (M); Height 5 ft. 10 in. (177.80 cm); Pain 10/10; 02:09 BP 141 / 77; Pulse 97; Resp 18; Pulse Ox 100% on R/A; kl 05:17 BP 137 / 64; Pulse 80; Resp 18; Pulse Ox 98% on R/A; kl 01:17 Body Mass Index 31.28 (98.88 kg, 177.80 cm) MDM: 03:09 Data reviewed: vital signs, nurses notes, lab test result(s), radiologic studies. kdr 04:59 Patient medically screened. kdr 09/16 01:29 Order name: COVID-19/FLU A+B 09/16 01:29 Order name: Strep 09/16 01:51 Order name: Basic Metabolic Panel [facility] 09/16 01:51 Order name: CBC with Diff [facility] 09/16 01:51 Order name: Troponin HS [facility] 09/16 01:59 Order name: Group A Streptococcus Rapid Sc; Complete Time: 05:07 EDMS 09/16 01:51 Order name: XRAY Chest (1 view) kdr 09/16 02:18 Order name: CT Soft Tissue Neck W/contr kdr 09/16 02:43 Order name: COVID-19/FLU A+B; Complete Time: 05:07 EDMS 09/16 02:44 Order name: CBC with Automated Diff; Complete Time: 05:07 EDMS 09/16 02:51 Order name: Basic Metabolic Panel; Complete Time: 05:07 EDMS 09/16 02:51 Order name: Troponin High Sensitivity; Complete Time: 05:07 EDMS 09/16 01:29 Order name: EKG; Complete Time: 01:29 kl 09/16 01:51 Order name: Cardiac monitoring; Complete Time: 02:02 kdr 09/16 01:51 Order name: EKG - Nurse/Tech; Complete Time: 02:02 kdr 09/16 01:51 Order name: IV Saline Lock; Complete Time: 02:13 kdr 09/16 01:51 Order name: Labs collected and sent; Complete Time: 02:13 kdr 09/16 01:51 Order name: O2 Per Protocol; Complete Time: 02:02 kdr 09/16 01:51 Order name: O2 Sat Monitoring; Complete Time: 02:02 kdr Administered Medications: 02:02 Drug: GI Cocktail without - (Maalox Suspension 30 ml, Lidocaine Liquid 2 % 15 kl ml) Route: PO; 02:10 Drug: Ativan (LORazepam) 1 mg Route: IVP; Site: left antecubital; pf1 Disposition Summary: 09/16/22 04:59 Discharge Ordered Location: Home kdr Problem: an acute exacerbation kdr Symptoms: have improved kdr Condition: Stable kdr Diagnosis - Palpitations kdr - Headache kdr - Anxiety disorder, unspecified kdr - Acute pharyngitis, unspecified kdr - Panic disorder [episodic paroxysmal anxiety] without agoraphobia kdr - Agoraphobia with panic disorder kdr - SARS-associated coronavirus as the cause of diseases classified elsewhere kdr Followup: kdr - With: Private Physician - When: 2 - 3 days - Reason: If symptoms return, Further diagnostic work-up, Recheck today's complaints, Continuance of care, Re-evaluation by your physician Discharge Instructions: - Discharge Summary Sheet kdr - General Headache Without Cause kdr - Pharyngitis kdr - Panic Attack, [id number] kdr - Palpitations, [id number] kdr - Generalized Anxiety Disorder, Adult kdr - COVID-19 Frequently Asked Questions kdr - 3 Newsome Steps to Take While Waiting for Your COVID-19 Test Result - [facility] kdr - 10 Things You Can Do to Manage Your COVID-19 Symptoms at Home - [facility] kdr - COVID-19: Quarantine vs. Isolation - [facility] kdr Forms: - Medication Reconciliation Form kdr - Thank You Letter kdr Signatures: Dispatcher [employer] Ivanna Ford RN RN Bandar Wesley MD MD kdr Ashlyn valencia RN RN pf1 Corrections: (The following items were deleted from the chart) 01:22 Allergies: No Known Allergies; [facility] 01: PMHx: WPW; [facility] 01: Allergies: SVT; [facility]
[2022-09-16 06:22] VITALS: TEMP 97
[2022-09-16 06:24] VITALS: BP 137/64; O2SAT 98
--- NOTE | 2022-09-16 15:20 | EKG ---
Test Date: 2022-09-16 Test Time: 01:17:24 Detective: SHIVA MEASUREMENT RESULTS: Intervals: Rate: 96 PA: 136 QRSD: 94 QT: 358 QTc: 452 Brigantine: P: 47 PA: 136 QRS: 54 T: 64 INTERPRETIVE STATEMENTS: Normal sinus rhythm Posterior infarct, age undetermined Abnormal ECG Compared to ECG 01/03/2022 12:51:18 No significant changes Electronically Signed On 09-16-22 15:19:15 COMPUTER ENGINEERING TECHNOLOGIST by Surjit Jain
--- NOTE | 2022-09-16 20:32 | RAD REPORT ---
EXAM DESCRIPTION: CT - Soft Tissue Neck W/Contr - 09/16/2022 6:53 am CLINICAL HISTORY: The patient is 52 years old and is Female; SORE THROAT TECHNIQUE: Axial computed tomography images of the neck with intravenous contrast. Sagittal and co augie reformatted images were created and reviewed. This CT exam was performed using one or more of the following dose reduction techniques: automated exposure control, adjustment of the mA and/or k V according to patient size, and/or use of iterative reconstruction technique. COMPARISON: No relevant prior studies available. FINDINGS: OROPHARYNX: Unremarkable. No significant tonsillar enlargement. No peritonsillar abs cess. HYPOPHARYNX: Unremarkable. LARYNX: Unremarkable. Normal epiglottis. TRACHEA: Unremarkable. RETROPHARYNGEAL SPACE: Unremarkable. SUBMANDIBULAR/PAROTID GLANDS: Unremarkable. Glands are normal in size. THYROID: Unremarkable. No enlarged or calcified nodules. BONES/JOINTS: Minimal degenerative change of the lower cervical spine is present. Reversal the n ormal cervical curvature is noted. There is no acute fracture. SOFT TISSUES: The soft tissues are normal. VASCULATURE: Unremarkable. Normal in course and caliber. LYMPH NODES: Unremarkable. No enlarged lymph nodes. SINUSES: Minimal fluid is noted within the left ethmoid air cells. Trace mucoperiosteal thicke collins of the left maxillary sinus is noted. LUNG APICES: The lung apices are clear. IMPRESSION: No acute findings on this contrasted CT of the soft tissues of the neck to explain the p atient's symptoms. Electronically signed by: Kiki Luong MD 09/16/2022 3:47 AM DIRECTOR OF STRATEGIC PARTNERSHIPS Due to temporary technical issues with the PACS/Fluency reporting system, reports are being signed by the in house radiologists without review as a courtesy to insure prompt reporting. The interpreting radiologist is fully responsible for the content of the report.
--- NOTE | 2022-09-16 20:35 | RAD REPORT ---
EXAM DESCRIPTION: RAD - Chest Single View - 09/16/2022 2:13 am CLINICAL HISTORY: CHEST PAIN TECHNIQUE: Frontal view of the chest. COMPARISON: No relevant prior studies available. FINDINGS: Lungs: Coarsened interstitial markings. No focal consolidation. Pleural space: Unremarkable. No pneumothorax. Heart: The cardiac silhouette is enlarged, in part accentuated by portable technique. Mediastinum: Unremarkable. Bones/joints: Unremarkable. Vasculature: Thoracic aortic atherosclerosis. IMPRESSION: No acute disease. Electronically signed by: Ruben Padilla MD 09/16/2022 2:26 AM GEOLOGICAL SCIENCE TEACHER Due to temporary technical issues with the PACS/Fluency reporting system, reports are being signed by the in house radiologists without review as a courtesy to insure prompt reporting. The interpreting radiologist is fully responsible for the content of the report.
--- NOTE | 2022-09-16 20:43 | RAD REPORT ---
EXAM DESCRIPTION: CT - Head Brain Wo Cont - 09/16/2022 6:53 am CLINICAL HISTORY: The patient is 52 years old and is Female; HEADACHE TECHNIQUE: Axial computed tomography images of the head/brain without intravenous contrast. Sagitt al and coronal reformatted images were created and reviewed. This CT exam was performed using one o r more of the following dose reduction techniques: automated exposure control, adjustment of the mA and/or kV according to patient size, and/or use of iterative reconstruction technique. COMPARISON: No relevant prior studies available. FINDINGS: Brain: Unremarkable. No hemorrhage. No significant white matter disease. No edema. Ventricles: Unremarkable. No ventriculomegaly. Bones/joints: Unremarkable. No acute fracture. Soft tissues: Unremarkable. Sinuses: Left maxillary sinus mucosal thickening. Mastoid air cells: Unremarkable as visualized. No mastoid effusion. IMPRESSION: No acute intracranial abnormality. Electronically signed by: Rodrigo Dailey MD 09/16/2022 3:39 AM TANK OFFICER Due to temporary technical issues with the PACS/Fluency reporting system, reports are being signed by the in house radiologists without review as a courtesy to insure prompt reporting. The interpreting radiologist is fully responsible for the content of the report.
== END 2022-09-16 05:19 | disposition home or self-care (01) ==
LOC: ER 01:06
DX: U07.1 COVID-19 (principal); F40.01 Agoraphobia with panic disorder; R00.2 Palpitations; J02.9 Acute pharyngitis, unspecified; Z72.0 Tobacco use
CPT/HCPCS: 93005; 87070; 85025; 80048; 36415; 87081; 84484; 0240U; 70450; 70491; 71045; Q9967; 96374; 99284

== ENCOUNTER 2023-10-28 14:21 | Emergency (ER) | payer OTHER ==
--- OUTSIDE RECORDS SUMMARY | 2023-10-28 14:24 | XMS REPORT | Continuity of Care Document ---
Author Name Unknown Address [address] [place] [address] [facility] thconnect Address [address] [place] [address] Care Team Providers Care Deburr Technician Name Role Phone Pcp, Patient Does Not Have A Primary Care Physic ara CANDY NEWTON Attending Clinician Unavailable CHIOMA VASQUES Attending Clinician Unavailable Chioma Vasques MD Attending Clinician [phone] Doctor Unassigned, Tye Attending Clinician U navailASHLEY Dhillon Attending Clinician Unavail able Candy Newton MD Attending Clinician [phone] Only, Adc Test Attending Clinician Unavailable Taisha Coto Attending Clinician [phone] CANDY NWETON Admitting Clinician Unavailable Payers Payer Name Policy Type Policy Number Effective Date Expirati on Date Source [facility] PLUS [id number] 2012 00:00:00 Problems Condition Name Condition Details Condition Category Status Onset Date Resolution Date Last Treatment Date Treating Clinician Comments Source Acute cholecysti tis Acute cholecysti tis Disease Active 2019-07 00:00: 00 Overview: Formattin g of this note might be different from the original. Added automatic ally from request for surgery [id number] [facility] Hepatitis B surface antigen positive Hepatitis B surface antigen positive Disease Active 2013-07 00:00: 00 [facility] Abnormal Pap smear, can't excl hi gd sq intraepith elial lesion (ASC-H) Abnormal Pap smear, can't excl hi gd sq intraepith elial lesion (ASC-H) Disease Active 2013-07 00:00: 00 [facility] Chronic cough Chronic cough Disease Active 03-29 00:00: 00 [facility] Anxiety Anxiety Disease Active 03-29 00:00: 00 [facility] Overweight Overweight Disease Active 03-29 00:00: 00 Overview: Formattin g of this note might be different from the original. 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 [facility] Elevated blood pressure Elevated blood pressure Disease Active 03-29 00:00: 00 [facility] Atypical chest pain Atypical chest pain Disease Active 03-29 00:00: 00 [facility] Tobacco abuse Tobacco abuse Disease Active 03-29 00:00: 00 [facility] Allergies, Adverse Reactions, Alerts Allergy Name Allergy Type Status Severity Reaction(s) Onset Date Inactive Date Treating Clinician Comments Source NO KNOWN ALLERGIE S Drug Class Active [facility] Social History Social Habit Start Date Stop Date Quantity Comments Source History of tobacco use Cigarette Smoker [facility] to SARS-CoV[facility]2 (event) Not sure [facility] History of Social function 2021-08-05 00:00:00 2021-08-05 00:00:00 [facility] Alcohol intake 2021-08-05 00:00:00 2021-08-05 00:00:00 0 /d [facility] Cigarettes smoked current (pack per day) - Reported 2018-04-11 00:00:00 2018-04-11 00:00:00 [facility] Cigarette pack-years 2018-04-11 00:00:00 2018-04-11 00:00:00 [facility] Tobacco use and exposure 2018-04-11 00:00:00 2018-04-11 00:00:00 Smokeless tobacco non-user [facility] Sex Ass[birth year] At 1970 00:00:00 1970 00:00:00 [facility] Smoking Status Start Date Stop Date Source Smokes tobacco daily 2018-04-11 00:00:00 [facility] Medications Ordered Medication Name Filled Medication Name Start Date Stop Date Current Medication? Ordering Clinician Indication Dosage Frequency Signature (SIG) Comments Components Source ceFAZolin (ANCEF) 1,000 mg in NaCl 0.9% (NS) 50 mL MINI-BAG 08-05 13:00: 00 Yes 1000mg [facility] LORazepam (ATIVAN) 1 mg tablet 08-01 10:57: 22 Yes 1mg Take 1 mg by mouth 3 (three) times daily. [facility] acetaminoph en (TYLENOL EXTRA STRENGTH) 500 mg tablet 08-01 10:57: 22 Yes 1000mg Take 1,000 mg by mouth every 6 (six) hours as needed for Pain. [facility] amoxicillin 500 mg capsule 08-01 10:57: 22 Yes 500mg Take 500 mg by mouth 3 (three) times daily. [facility] OMEPRAZOLE 20 mg capsule 03-28 00:00: 00 Yes [id number] TAKE 1 CAPSULE BY MOUTH ONCE DAILY [facility] busPIRone 30 mg tablet 03-14 00:00: 00 Yes [facility] busPIRone 15 mg tablet 09-05 00:00: 00 Yes Per [facility] venlafaxine XR 75 mg 24 hr capsule 09-05 00:00: 00 Yes Per [facility] polyethylen e glycol (MIRALAX) 17 gram/dose powder 01-27 00:00: 00 Yes [id number] 17g Take 17 g by mouth daily. [facility] buPROPion XL (WELLBUTRIN XL) 150 mg 24 hr tablet 04-01 00:00: 00 Yes [id number] 150mg Take 1 tablet by mouth daily. [facility] Immunizations Ordered Immunization Name Filled Immunization Name Date Status Comments Source Influenza Virus Vaccine (3+ yrs) 2014-04-30 00:00:00 Completed [facility] Influenza Virus Vaccine (3+ yrs) 2014-04-30 00:00:00 Completed [facility] Influenza Virus Vaccine (3+ yrs) 2014-04-30 00:00:00 Completed [facility] Influenza Virus Vaccine (3+ yrs) 2014-04-30 00:00:00 Completed [facility] Influenza Virus Vaccine (3+ yrs) Unknown Completed [facility] Influenza Virus Vaccine (3+ yrs) Unknown Completed [facility] Influenza Virus Vaccine (3+ yrs) Unknown Completed [facility] Vital Signs Vital Name Observation Time Observation Value Comments S ource Systolic blood pressure 2021-08-05 21:26:00 123 mm[Hg] [facility] Diastolic blood pressure 2021-08-05 21:26:00 80 mm[Hg] [facility] Heart rate 2021-08-05 21:26:00 89 /min [facility] Body temperature 2021-08-05 21:26:00 35.78 Jeannette [facility] Respiratory rate 2021-08-05 21:26:00 18 /min [facility] Body height 2021-08-05 21:26:00 180.3 cm [facility] Body weight 2021-08-05 21:26:00 93.169 kg [facility] BMI 2021-08-05 21:26:00 28.65 kg/m2 [facility] Oxygen saturation in Arterial blood by Pulse oximetry 2021-08-05 21:26:00 97 /min [facility] Procedures Procedure Date / Time Performed Performing Clinicia n Source MEDICAL RELEASE/CLEARANCE FORMS 2023-08-05 06:01:00 Doctor Unassigned, Tye [facility] US ABDOMEN LIMITED 2021-08-13 22:40:00 Mary Newton [facility] ASSIGNMENT OF BENEFITS 2021-08-13 21:50:52 Docto r Unassigned, Tye [facility] Encounters Start Date/Time End Date/Time Encounter Type Admission Type Attending Clinicians Care Facility Care Department Encounter ID Source 2022-04-07 16:57:03 Outpatient [facility] [id number] [facility] 2021-05-24 14:53:31 Outpatient R CANDY NEWTON [facility] [id number] [facility] 2023-08-06 15:30:00 2023-08-06 15:30:00 [facility] [id number] [facility] 2023-08-06 14:00:00 2023-08-06 14:00:[address] [facility] [id number] [facility] 2023-08-06 00:00:00 2023-08-06 00:00:00 [facility] 1..840.114 350.1.13.10 4.2.7.2.686 [id number] [facility] 2023-08-05 00:00:00 2023-08-05 00:00:00 Orders Only Doctor Unassigned, Tye [facility] 1..840.114 350.1.13.10 4.2.7.2.686 [id number] [facility] 2023-07-16 13:30:00 2023-07-16 13:30:00 [facility] [id number] [facility] 2023-06-04 15:30:00 2023-06-04 15:30:00 [id number] 2021-08-21 15:30:00 2021-08-21 15:30:00 Outpatient CANDY ALMANZA [facility] [id number] [facility] 2021-08-21 14:15:00 2021-08-21 14:15:00 Outpatient ASHLEY GO [facility] [id number] [facility] 2021-08-13 15:53:10 2021-08-13 23:59:00 Outpatient CANDY ALMANZA [facility] [id number] [facility] 2021-08-13 15:53:10 2021-08-13 23:59:00 Hospital Encounter Candy Newton [facility] 1.2.840.114 350.1.13.10 4.2.7.2.686 [id number] [facility] 2021-08-13 00:00:00 2021-08-13 00:00:00 Orders Only Doctor Unassigned, Tye [facility] 1.2.840.114 350.1.13.10 4.2.7.2.686 [id number] [id number] [facility] 2021-08-05 15:30:00 2021-08-05 16:25:06 [id number] 2021-08-05 15:30:00 2021-08-05 16:25:06 Office Visit [facility] 1.2.840.114 350.1.13.10 4.2.7.2.686 [id number] [facility] 2021-08-05 00:00:00 2021-08-05 00:00:00 Orders Only Doctor Unassigned, Tye [facility] 1.2.840.114 350.1.13.10 4.2.7.2.686 [id number] [id number] [facility] 2020-08-02 15:12:29 2020-08-02 15:27:29 Laboratory Only Only, [facility] 1.2.840.114 350.1.13.10 4.2.7.2.686 [id number] [facility] 2020-08-02 14:15:00 2020-08-02 14:15:00 [facility] [id number] 2020-08-02 00:00:00 2020-08-02 00:00:00 Orders Only Doctor Unassigned, Tye [facility] 1.2.840.114 350.1.13.10 4.2.7.2.686 [id number] [facility] 2020-08-01 10:45:10 2020-08-01 11:30:38 [facility]andy [facility] 1.2.840.114 350.1.13.10 4.2.7.2.686 [id number] [facility] 2020-08-01 10:30:00 2020-08-01 10:30:00 Outpatient R CANDY NEWTON [facility] [id number] [facility] 2020-07-23 00:00:00 2020-07-23 00:00:00 Prep For Surgery Candy Newton [facility] 1.2.840.114 350.1.13.10 4.2.7.2.686 [id number] [facility] 2020-07-23 00:00:00 2020-07-23 00:00:00 Prep For Surgery Candy Newton [facility] 1.2.840.114 350.1.13.10 4.2.7.2.686 [id number] 2020-07-22 00:00:00 2020-07-22 00:00:00 Telephone Candy Newton [facility] 1.2.840.114 350.1.13.10 4.2.7.2.686 [id number] [facility] 2020-07-22 00:00:00 2020-07-22 00:00:00 Telephone Candy Newton [facility] 1.2.840.114 350.1.13.10 4.2.7.2.686 [id number] 2020-04-19 00:00:00 2020-04-19 00:00:00 Orders Only Doctor Unassigned, Tye [facility] 1.2.840.114 350.1.13.10 4.2.7.2.686 [id number] [facility] 2020-04-19 00:00:00 2020-04-19 00:00:00 Telephone Candy Newton [facility] 1.2.840.114 350.1.13.10 4.2.7.2.686 [id number] [facility] 2020-04-19 00:00:00 2020-04-19 00:00:00 Orders Only Doctor Unassigned, Tye [facility] 1.2.840.114 350.1.13.10 4.2.7.2.686 [id number] 2020-04-19 00:00:00 2020-04-19 00:00:00 Telephone Candy Newton [facility] 1.2.840.114 350.1.13.10 4.2.7.2.686 [id number] 2020-04-01 00:00:00 2020-04-01 00:00:00 Telephone Candy Newton [facility] 1.2.840.114 350.1.13.10 4.2.7.2.686 [id number] [facility] 2020-04-01 00:00:00 2020-04-01 00:00:00 Telephone Candy Newton [facility] 1.2.840.114 350.1.13.10 4.2.7.2.686 [id number] 2020-02-01 00:00:00 2020-02-01 00:00:00 Orders Only Doctor Unassigned, Tye [facility] 1.2.840.114 350.1.13.10 4.2.7.2.686 [id number] 2020-02-01 00:00:00 2020-02-01 00:00:00 Orders Only Doctor Unassigned, Tye [facility] 1.2.840.114 350.1.13.10 4.2.7.2.686 [id number] [facility] 2020-01-15 00:00:00 2020-01-15 00:00:00 Orders Only Doctor Unassigned, Tye [facility] 1.2.840.114 350.1.13.10 4.2.7.2.686 [id number] 2020-01-15 00:00:00 2020-01-15 00:00:00 Orders Only Doctor Unassigned, Tye [facility] 1.2.840.114 350.1.13.10 4.2.7.2.686 [id number] [facility] 2020-01-09 00:00:00 2020-01-09 00:00:00 Telephone Candy Newton [facility] 1.2.840.114 350.1.13.10 4.2.7.2.686 [id number] 2020-01-09 00:00:00 2020-01-09 00:00:00 Telephone Candy Newton [facility] 1.2.840.114 350.1.13.10 4.2.7.2.686 [id number] [facility] 2019-12-26 15:30:00 2019-12-26 15:30:00 Outpatient R CANDY NEWTON [facility] [id number] [facility] 2019-12-11 00:00:00 2019-12-11 00:00:00 Orders Only Doctor Unassigned, Tye [facility] 1.2.840.114 350.1.13.10 4.2.7.2.686 [id number] 2019-12-11 00:00:00 2019-12-11 00:00:00 Orders Only Doctor Unassigned, Tye [facility] 1.2.840.114 350.1.13.10 4.2.7.2.686 [id number] [facility] 2019-03-28 00:00:00 2019-03-28 00:00:00 Refill Taisha Ch [facility] 1.2840.114 350.1.13.10 4.2.7.2.686 [id number] 2019-03-28 00:00:00 2019-03-28 00:00:00 Refill Taisha Ch [facility] 1.2840.114 350.1.13.10 4.2.7.2.686 [id number] [facility] Notes Date/Time Note Provider Source 2023-08-12 13:45:34 [id number] OJGffMgt6BVjBcoj7gT6Q8YpuCLAh5169 18-08-173:45:34 Patient has not been seen by Dr Vasques- ayesha nicolas [address] gastroenterology notified. [id number] encounter GhymME2876-39-25O81:46:35Telephon e encounter NoteTXT1.2.840.233396.1.13.104.2. 7.2.750963|[id number] for patient [id number] ed C-CDA narrative [id number] A Hall RNUTF[facility] - [address] Er[id number] 210IBLILQONJFVYPBYLWQBYMK8934-52- 18T13:46:351.2.840.792941.1.72.3. 15|1.2.840.666497.1.13.104.2.7.2. [id number] Jessa Cummings RN [facility] 2023-08-06 08:26:00 4aZHYdndYqEqSqMhaF3l 9e3gcrF1tLls2 x9x9j6VNdPe/dPooC19yHNjPdcqG3la12 18-08-11T08:26:00 Received a request for Cardiac Clearance from [facility]. Placed into providers folder. [id number] encounter NthqDO4229-04-34F31:28:52Telephon e encounter NoteTXT1.2.840.872978.1.13.104.2. 7.2.705429|[id number] for patient tihk11402-2DplgNJREOTAHREVMnbcsqf ed C-CDA narrative [id number] [address] Tl[id number] 130IULQWABUVEDHLBPFLROPJP0513-68- 12T08:28:521.2.840.622376.1.72.3. 15|1.2.840.009095.1.13.104.2.7.2. [id number] Jose Hester [facility]"
--- NOTE | 2023-10-28 15:25 | RAD REPORT ---
EXAM DESCRIPTION: RAD - Chest Single View - 10/28/2023 3:10 pm CLINICAL HISTORY: CHEST PAIN Chest pain. COMPARISON: Chest Single View dated 07/12/2023; Chest Single View dated 09/16/2022; Chest Single View dated 01/03/2022; Chest Single View dated 10/02/2018 FINDINGS: Portable technique limits examination quality. The lungs are grossly clear. The heart is normal in size. No displaced fractures. IMPRESSION: No acute intrathoracic process suspected.
[2023-10-28 16:09] LABS: Specific Gravity 1.014 (1.005-1.030); Sqamous Epithelial <5 /HPF (None Seen); Urine Bacteria None Seen /HPF (<20); Urine Bilirubin NEGATIVE (Negative); Urine Blood Negative (Negative); Urine Clarity Clear (Clear); Urine Color Light-Yellow (Yellow); Urine Culture Reflex Order NOT NEEDED; Urine Glucose NEGATIVE (Negative); Urine Ketones NEGATIVE (Negative); Urine Micro Reflex YN NO BILL MICROSCOPIC; Urine Mucus Slight /HPF (None Seen); Urine Nitrite NEGATIVE (Negative); Urine Protein NEGATIVE (Negative); Urine RBC <5 /HPF (None Seen); Urine Urobilinogen Normal (Normal); Urine WBC <5 /HPF (<5)
[2023-10-28 16:21] LABS: Absolute Monocytes 0.5 K/uL (0.1-1.3); Absolute Neutrophil 4.7 K/uL (1.8-8.0); Basophils % 0.7 % (0-1.3); Eosinophils % 0.6 % (0-4.4); Hemoglobin 13.1 g/dL (12.0-15.0); Lymphocytes % 27.3 % (15.3-44.8); MCH 31.4 pg (27.0-35.0); MCHC 33.7 g/dL (32.0-36.0); MCV 93.1 fL (80-100); MPV 9.2 fL (7.6-11.3); Monocytes % 6.5 % (3.3-12.3); Neutrophils % 64.9 % (41.7-73.7); Nucleated Red Blood Cells % 0.1 % (0-0); Platelets 334 thou/uL (152-406); RBC Red Blood Cell Count 4.18 M/uL (3.86-4.86); Red Cell Distribution Width 13.1 % (12.1-15.2)
[2023-10-28 16:25] LABS: ALT/SGPT 21 U/L (13-56); AST/SGOT 20 U/L (15-37); Albumin 3.8 g/dL (3.4-5.0); Alkaline Phosphatase 68 U/L (45-117); Anion Gap 6.9 mEq/L (5.0-15.0); BUN Blood Urea Nitrogen 8 mg/dL (7-18); Bicarbonate 30 mEq/L (21-32); Bilirubin Total 0.4 mg/dL (0.2-1.0); Globulin 3.9 g/dL (2.3-3.5); Glomerular Filtration Rate 89 ml/min (=/>90); Glucose Level 90 mg/dL (74-106); Lipase 23 U/L (13-75); Magnesium 2.1 mg/dL (1.6-2.4); Potassium 3.9 mEq/L (3.5-5.1); Protein, Total 7.7 g/dL (6.4-8.2); Sodium Level 136 mEq/L (136-145)
[2023-10-28 16:27] LABS: Bilirubin Direct < 0.1 mg/dL (0-0.2); Bilirubin Indirect, Calculated ND mg/dL (0.2-0.8); Troponin High Sensitivity < 3.0 pg/mL (<58.9)
[2023-10-28 16:28] LABS: SARS-CoV-2 Antigen CONTROL BLUE LINE VIS/BG OK; SARS-CoV-2 Antigen Rapid Res Negative (Negative)
--- NOTE | 2023-10-28 18:01 | EDPHYS ---
Physician Documentation [facility] Name: Steph Olguin Age: 53 yrs Sex: Female : 1970 Arrival Date: 10/28/2023 Time: 14:21 Bed 17 Private MD: ED Physician Gabo Contreras HPI: 10/27 14:50 This 53 yrs old Female presents to ER via Ambulatory with complaints of Doesn't Feel cp Right. 14:50 The patient's problem is reported as weakness, that is generalized. cp 14:50 Associated signs and symptoms: Pertinent positives: abdominal pain, chest pain, not cp feeling well, Pertinent negatives: fever, cough, sore throat, shortness of breath. 14:50 Onset: The symptoms/episode began/occurred 2-3 weeks ago. cp RODEO CLOWN: 15:14 LMP N/A - Post-menopause, Not hb Historical: - Allergies: 15:13 No Known Allergies; hb - Home Meds: 15:13 Omeprazole Oral [Active]; venlafaxine 75 mg Oral cp24 1 cap once daily [Active]; hb Vemlidy 25 mg Oral tablet 1 tab daily [Active]; tramadol 50 mg Oral tab 1 tab TID [Active]; lorazepam 1 mg Oral tab 1 tab 3 times per day [Active]; metoprolol succinate 50 mg Oral Tablet 1 tab once for Hypertension [Active]; buspirone 30 mg Oral tab 1 tab 2 times per day [Active]; - PMHx: 15:13 Anxiety; Panic Attacks; Depression; SVT; volvulus; hb - Immunization history:: Adult Immunizations up to date. - Infectious Disease History:: Denies. - Social history:: Patient/guardian denies using alcohol, tobacco products, Smoking status: Patient denies any tobacco usage or history of. ROS: 14:55 Constitutional: Negative for body aches, chills, fever, poor PO intake, cp 14:55 Cardiovascular: Positive for chest pain, cp 14:55 Respiratory: Negative for cough, shortness of breath, wheezing, 14:55 Eyes: Negative for injury, pain, redness, and discharge, cp 14:55 ENT: Negative for drainage from ear(s), ear pain, sore throat, difficulty swallowing, difficulty handling secretions, 14:55 Abdomen/GI: Positive for abdominal pain, of the left upper quadrant, Negative for vomiting, diarrhea, constipation, 14:55 : Negative for urinary symptoms, 14:55 Neuro: Positive for weakness, Negative for altered mental status, numbness, syncope, 14:55 Psych: Positive for anxiety, 14:55 All other systems are negative, Exam: 15:00 Constitutional: The patient appears in no acute distress, alert, awake, cp non-diaphoretic, non-toxic, well developed, well nourished, anxious, 15:00 Head/Face: Normocephalic, atraumatic. cp 15:00 Eyes: Periorbital structures: appear normal, Conjunctiva: normal, no exudate, no injection, Sclera: no appreciated abnormality, Lids and lashes: appear normal, bilaterally, 15:00 ENT: External ear(s): are unremarkable, Nose: is normal, Mouth: Lips: moist, Oral mucosa: pink and intact, moist, Posterior pharynx: is normal, airway is patent, no erythema, no exudate, 15:00 Chest/axilla: Inspection: normal, Palpation: is normal, no crepitus, no tenderness, 15:00 Cardiovascular: Rate: normal, Rhythm: regular, 15:00 Respiratory: the patient does not display signs of respiratory distress, Respirations: normal, no use of accessory muscles, no retractions, labored breathing, is not present, Breath sounds: are clear throughout, no decreased breath sounds, no stridor, no wheezing, 15:00 Abdomen/GI: Inspection: abdomen appears normal, Bowel sounds: active, all quadrants, Palpation: soft, in the left upper quadrant, very mild tenderness, rebound tenderness, is not appreciated, 15:00 Back: pain, is absent, ROM is normal, 15:00 Skin: cellulitis, is not appreciated, no rash present. 15:00 Neuro: Orientation: to person, place \T\ time. Mentation: is normal, Cerebellar function: is grossly normal, Motor: moves all fours, strength is normal, Sensation: is normal, Gait: is steady, at a normal pace, without difficulty, 15:15 ECG was reviewed by the Attending Physician. cp 15:15 CT study not indicated or reported. Reason for not performing CT: no focal neuro cp findings on exam Vital Signs: 15:12 BP 118 / 79; Pulse 87; Resp 16; Temp 97.7(TE); Pulse Ox 99% on R/A; Weight 90.26 kg; hb Height 5 ft. 11 in. ; Pain 1/10; 18:00 BP 118 / 80; Pulse 72; Resp 16; Temp 98.6; Pulse Ox 98% on R/A; Pain 0/10; mg7 15:12 Body Mass Index 27.75 (90.26 kg, 180.34 cm) hb 15:12 Pain Scale: Adult hb 18:00 Pain Scale: Adult mg7 Cabot Coma Score: 16:30 Eye Response: spontaneous(4). Motor Response: obeys commands(6). Verbal Response: mg7 oriented(5). Total: 15. MDM: 15:00 Patient medically screened. cp 15:00 Differential diagnosis: metabolic disorder, viral infection, cardiac arrhythmia, uti, cp sepsis. 18:00 Data reviewed: vital signs, nurses notes, lab test result(s), EKG, radiologic studies, cp plain films. 18:00 Consideration of Admission/Observation Escalation of care including cp admission/observation considered. I considered the following discharge prescriptions or medication management in the emergency department Medications were administered in the Emergency Department. See MAR. ED course: VSS. Discussed abnormal EKG findings and admission offered for cardiology consult. Patient declines at this time and would like to f/u outpatient. Patient instructed she can return at any time for reevaluation. 10/27 14:44 Order name: Basic Metabolic Panel; Complete Time: 16:43 cp 10/27 16:43 Interpretation: Normal except: GFR 89. cp 10/27 14:44 Order name: CBC with Diff; Complete Time: 16:43 cp 10/27 14:44 Order name: LFT's; Complete Time: 16:43 cp 10/27 14:44 Order name: Magnesium; Complete Time: 16:43 cp 10/27 14:44 Order name: Troponin HS; Complete Time: 16:43 cp 10/27 14:44 Order name: Lipase; Complete Time: 16:43 cp 10/27 14:44 Order name: Influenza Screen (a \T\ B); Complete Time: 16:43 cp 10/27 14:44 Order name: SARS RAPID; Complete Time: 16:43 cp 10/27 14:44 Order name: Urinalysis W/Microscopic; Complete Time: 16:17 cp 10/27 14:44 Order name: XRAY Chest (1 view); Complete Time: 15:34 10/27 16:18 Interpretation: Report reviewed. 10/27 14:44 Order name: Cardiac monitoring; Complete Time: 15:29 10/27 14:44 Order name: EKG - Nurse/Tech; Complete Time: 15:19 10/27 14:44 Order name: IV Saline Lock; Complete Time: 16:04 10/27 14:44 Order name: Labs collected and sent; Complete Time: 16:04 10/27 14:44 Order name: O2 Per Protocol; Complete Time: 15:29 10/27 14:44 Order name: O2 Sat Monitoring; Complete Time: 15:29 cp EC:15 Rate is 85 beats/min. Rhythm is regular. RI interval is normal. QRS interval is cp prolonged at 112 msec. QT interval is normal. T waves are Inverted in lead aVR. Interpreted by me. Reviewed by me. Administered Medications: No medications were administered Disposition: 10/28 12:01 Co-signature as Attending Physician, Gabo Contreras MD I reviewed the patient's care rn provided by the Advanced Practice Provider and agree with the diagnosis and treatment plan. Disposition Summary: 10/28/23 18:00 Discharge Ordered Notes: Location: Home cp Problem: new cp Symptoms: have improved cp Condition: Stable cp Diagnosis - Other specified anxiety disorders cp - Weakness cp - Abnormal electrocardiogram [ECG] [EKG] cp Followup: cp - With: Surjit Jain MD - When: 2 - 3 days - Reason: abnormal EKG Followup: cp - With: Private Physician - When: 2 - 3 days - Reason: Recheck today's complaints Discharge Instructions: - Discharge Summary Sheet cp - Electrocardiogram cp - Weakness cp - Supporting Someone With Anxiety cp - Managing Anxiety, Adult cp Forms: - Medication Reconciliation Form cp - Thank You Letter cp - Antibiotic Education cp - Prescription Opioid Use cp - Patient Portal Instructions cp - Leadership Thank You Letter cp Signatures: Dispatcher [employer] Gabo Briceno MD MD rn Page, Corey, PA PA cp Stacie Sandoval RN RN hb Gilbert, Melissa RN RN mg7 Corrections: (The following items were deleted from the chart) 10/27 14:44 14:44 BASIC METABOLIC PANEL+C.LAB.BRZ ordered. EDMS EDMS 14:44 14:44 CBC+H.LAB.BRZ ordered. EDMS EDMS 14:44 14:44 HEPATIC FUNCTION+C.LAB.BRZ ordered. EDMS EDMS 14:44 14:44 MAGNESIUM+C.LAB.BRZ ordered. EDMS EDMS 14:44 14:44 Troponin High Sensitivity+C.LAB.BRZ ordered. EDMS EDMS 14:44 14:44 LIPASE+C.LAB.BRZ ordered. EDMS EDMS 14:44 14:44 Influenza Screen (A \T\ B)+BA.LAB.BRZ ordered. EDMS EDMS 14:44 14:44 SARS-COV-2 Antigen Rapid+I.LAB.BRZ ordered. EDMS EDMS 14:44 14:44 Urinalysis W/Microscopic+U.LAB.BRZ ordered. EDMS EDMS 15:14 15:13 Allergies: Omeprazole; hb hb
--- NOTE | 2023-10-28 18:01 | ER ---
Nurse's Notes [facility] Name: Steph Olguin Age: 53 yrs Sex: Female : 1970 Arrival Date: 10/28/2023 Time: 14:21 Bed 17 Private MD: Diagnosis: Other specified anxiety disorders;Weakness;Abnormal electrocardiogram [ECG] [EKG] Presentation: 10/27 14:40 Chief complaint: Generalized weakness and intermittent left upper abdominal pain x 2-3 hb weeks. Coronavirus screen: At this time, the client does not indicate any symptoms associated with coronavirus-19. Ebola Screen: No symptoms or risks identified at this time. Initial Sepsis Screen: Does the patient meet any 2 criteria? No. Patient's initial sepsis screen is negative. Does the patient have a suspected source of infection? No. Patient's initial sepsis screen is negative. Risk Assessment: Do you want to hurt yourself or someone else? Patient reports no desire to harm self or others. Onset of symptoms was October 08, 2023. 14:40 Method Of Arrival: Ambulatory hb 14:40 Acuity: GRADY 3 hb Triage Assessment: 15:14 General: Appears in no apparent distress. Behavior is calm, cooperative. Pain: Pain hb currently is 1 out of 10 on a pain scale. Neuro: Level of Consciousness is awake, alert, obeys commands, Oriented to person, place, time, situation. Cardiovascular: Patient's skin is warm and dry. Respiratory: Respiratory effort is even, unlabored, Respiratory pattern is regular, symmetrical. GI: Reports upper abdominal pain, nausea. 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 - Infectious Disease History:: Denies. - Social history:: Patient/guardian denies using alcohol, tobacco products, Smoking status: Patient denies any tobacco usage or history of. Screenin:30 [facility] ED Fall Risk Assessment (Adult) History of falling in the last 3 months, mg7 including since admission No falls in past 3 months (0 pts). Abuse screen: Denies threats or abuse. Denies injuries from another. Nutritional screening: No deficits noted. Tuberculosis screening: No symptoms or risk factors identified. Assessment: 16:15 Also complains of shortness of breath, Left "kidney" pain. General: Appears Anxious, mg7 tearful . Reports symptoms x 2 months. Pain: Complains of pain in chest, left upper quadrant and left lower quadrant Pain began x 2 months. Neuro: No deficits noted. Cardiovascular: Reports chest pain, shortness of breath, since x 2 months. Respiratory: Reports cough that is non-productive, since x 2months. GI: No deficits noted. : No deficits noted. EENT: No deficits noted. 18:30 Reassessment: No changes from previously documented assessment. mg7 18:34 Pain: Pain does not radiate. mg7 Vital Signs: 15:12 BP 118 / 79; Pulse 87; Resp 16; Temp 97.7(TE); Pulse Ox 99% on R/A; Weight 90.26 kg; hb Height 5 ft. 11 in. ; Pain 1/10; 18:00 BP 118 / 80; Pulse 72; Resp 16; Temp 98.6; Pulse Ox 98% on R/A; Pain 0/10; mg7 15:12 Body Mass Index 27.75 (90.26 kg, 180.34 cm) hb 15:12 Pain Scale: Adult hb 18:00 Pain Scale: Adult mg7 Jennifer Coma Score: 16:30 Eye Response: spontaneous(4). Motor Response: obeys commands(6). Verbal Response: mg7 oriented(5). Total: 15. ED Course: 14:24 Patient arrived in ED. mg5 14:32 Stephen Herrmann PA is PHCP. cp 14:32 Gabo Contreras MD is Attending Physician. cp 15:12 Triage completed. hb 15:12 XRAY Chest (1 view) In Process Unspecified. EDMS 15:14 Arm band placed on. hb 15:14 EKG done, by ED staff, reviewed by Stephen HILL. hb 15:17 Sandi Vásquez, RN is Primary Nurse. mg7 16:04 Urinalysis W/Microscopic Sent. mg7 16:04 SARS RAPID Sent. mg7 16:04 Influenza Screen (a \\T\\ B) Sent. mg7 16:30 Client placed on continuous cardiac and pulse oximetry monitoring. NIBP monitoring mg7 applied. 16:30 Provided Education on: call light . mg7 17:30 Patient has correct armband on for positive identification. Call light in reach. Side mg7 rails up X 1. 17:59 Surjit Jain MD is Referral Physician. cp 18:27 IV discontinued, intact, bleeding controlled, No redness/swelling at site. Pressure aw1 dressing applied. 18:30 No provider procedures requiring assistance completed. mg7 18:34 O2 via none. mg7 18:34 IV discontinued, intact, bleeding controlled. mg7 Administered Medications: No medications were administered Medication: 18:31 VIS not applicable for this client. mg7 Outcome: 18:00 Discharge ordered by MD. cp 18:31 Discharged to home ambulatory, mg7 18:31 Condition: good 18:31 Discharge instructions given to patient, Instructed on discharge instructions, follow up and referral plans. Demonstrated understanding of instructions, follow-up care, 18:35 Patient left the ED. mg7 Signatures: Dispatcher [employer] EDCT Stephen Herrmann PA PA cp Stacie Sandoval RN RN hb Kalyani Suarez aw1 Cathi Moreno mg5 Sandi Vásquez, RN RN mg7 Corrections: (The following items were deleted from the chart) 15:14 15:12 BP 142 / 105; Pulse 87bpm; Resp 16bpm; Pulse Ox 99% RA; Temp 97.7F Temporal; hb 90.26 kg; Height 5 ft. 11 in.; BMI: 27.7; Pain 1/10, Adult; hb 15:14 15:13 Allergies: Omeprazole; hb hb
[2023-10-28 19:16] VITALS: BP 118/80; TEMP 98.6; O2SAT 98
--- NOTE | 2023-10-29 11:55 | EKG ---
Test Date: 2023-10-28 Test Time: 15:13:06 Retail Sales Representative: SHIVA MEASUREMENT RESULTS: Intervals: Rate: 85 IN: 126 QRSD: 112 QT: 402 QTc: 478 [place]ell: P: 65 IN: 126 QRS: 62 T: 76 INTERPRETIVE STATEMENTS: Normal sinus rhythm Ventricular pre-excitation, WPW pattern type A Abnormal ECG Compared to ECG 07/12/2023 12:50:26 Ventricular preexcitation now present Myocardial infarct finding no longer present Electronically Signed On 10-29-23 11:53:26 CDT by Surjit Jain
== END 2023-10-28 18:35 | disposition home or self-care (01) ==
LOC: ER 14:21
DX: F41.8 Other specified anxiety disorders (principal); R53.1 Weakness; R94.31 Abnormal electrocardiogram [ECG] [EKG]; R10.12 Left upper quadrant pain; Z11.52 Encounter for screening for COVID-19
CPT/HCPCS: 36415; 71045; 80048; 80076; 81001; 83690; 83735; 84484; 85025; 87804; 87811; 93005; 99284

== ENCOUNTER 2024-03-05 18:16 | Emergency (ER) | payer OTHER ==
--- OUTSIDE RECORDS SUMMARY | 2024-03-05 18:19 | XMS REPORT | Continuity of Care Document ---
Author Name Unknown Address [address] [place] [address] [facility] thconnect Address [address] [place] [address] Care Team Providers Care Pulmonary Disease Specialist Name Role Phone PCP, PATIENT DOES NOT HAVE A Primary Care Physic ara Unavailable CANDY NEWTON Attending Clinician Unavailable CHIOMA VASQUES Attending Clinician Unavailable Chioma Vasques MD Attending Clinician [phone] Doctor Unassigned, [place] Attending Clinician U ASHLEY Ochoa Attending Clinician Unavail able Candy Newton MD Attending Clinician [phone] Only, Adc Test Attending Clinician Unavailable Taisha Coto Attending Clinician [phone] CANDY NEWTON Admitting Clinician Unavailable Payers Payer Name Policy Type Policy Number Effective Date Expirati on Date Source [facility] [id number] 2012 00:00:00 Problems Condition Name Condition Details Condition Category Status Onset Date Resolution Date Last Treatment Date Treating Clinician Comments Source Acute cholecysti tis Acute cholecysti tis Disease Active 2019-07 00:00: 00 Overview: Formattin g of this note might be different from the original. Added automatic ally from request for surgery [id number] [facility] Hepatitis B surface antigen positive Hepatitis B surface antigen positive Disease Active 2013-07 00:00: 00 [facility] Abnormal Pap smear, can't excl hi gd sq intraepith elial lesion (ASC-H) Abnormal Pap smear, can't excl hi gd sq intraepith elial lesion (ASC-H) Disease Active 2013-07-13 00:00: 00 [facility] Chronic cough Chronic cough Disease Active 03-29 00:00: 00 [facility] Anxiety Anxiety Disease Active 03-29 00:00: 00 [facility] Overweight Overweight Disease Active 03-29 00:00: 00 Overview: Formattin g of this note might be different from the original. ICD10 Diagnosis Term [employer] Utility [facility] Elevated blood pressure Elevated blood pressure Disease Active 03-29 00:00: 00 [facility] Atypical chest pain Atypical chest pain Disease Active 03-29 00:00: 00 [facility] Tobacco abuse Tobacco abuse Disease Active 03-29 00:00: 00 [facility] Allergies, Adverse Reactions, Alerts Allergy Name Allergy Type Status Severity Reaction(s) Onset Date Inactive Date Treating Clinician Comments Source NO KNOWN ALLERGIE S Drug Class Active [facility] Social History Social Habit Start Date Stop Date Quantity Comments Source History of tobacco use Cigarette Smoker [facility] Exposure to SARS-CoV-2 (event) Not sure [facility] History of Social function 2021-08-05 00:00:00 2021-08-05 00:00:00 [facility] Alcohol intake 2021-08-05 00:00:00 2021-08-05 00:00:00 0 /d [facility] Cigarettes smoked current (pack per day) - Reported 2018-04-11 00:00:00 2018-04-11 00:00:00 [facility] Cigarette pack-years 2018-04-11 00:00:00 2018-04-11 00:00:00 [facility] Tobacco use and exposure 2018-04-11 00:00:00 2018-04-11 00:00:00 Smokeless tobacco non-user [facility] Sex Assigned At 1970 00:00:00 1970 00:00:00 [facility] Smoking Status Start Date Stop Date Source Smokes tobacco daily 2018-04-11 00:00:00 [facility] Medications Ordered Medication Name Filled Medication Name Start Date Stop Date Current Medication? Ordering Clinician Indication Dosage Frequency Signature (SIG) Comments Components Source ceFAZolin (ANCEF) 1,000 mg in NaCl 0.9% (NS) 50 mL MINI-BAG 08-05 13:00: 00 Yes 1000mg [facility] amoxicillin 500 mg capsule 08-01 10:57: 22 Yes 500mg Take 500 mg by mouth 3 (three) times daily. [facility] LORazepam (ATIVAN) 1 mg tablet 08-01 10:57: 22 Yes 1mg Take 1 mg by mouth 3 (three) times daily. [facility] acetaminoph en (TYLENOL EXTRA STRENGTH) 500 mg tablet 08-01 10:57: 22 Yes 1000mg Take 1,000 mg by mouth every 6 (six) hours as needed for Pain. [facility] OMEPRAZOLE 20 mg capsule 03-28 00:00: 00 Yes [id number] TAKE 1 CAPSULE BY MOUTH ONCE DAILY [facility] busPIRone 30 mg tablet 03-14 00:00: 00 Yes [facility] busPIRone 15 mg tablet 09-05 00:00: 00 Yes Per SETH Gr [facility] venlafaxine XR 75 mg 24 hr capsule 09-05 00:00: 00 Yes Per SETH Gr [facility] polyethylen e glycol (MIRALAX) 17 gram/dose powder 01-27 00:00: 00 Yes [id number] 17g Take 17 g by mouth daily. [facility] buPROPion XL (WELLBUTRIN XL) 150 mg 24 hr tablet 04-01 00:00: 00 Yes [id number] 150mg Take 1 tablet by mouth daily. [facility] Immunizations Ordered Immunization Name Filled Immunization Name Date Status Comments Source Influenza Virus Vaccine (3+ yrs) 2014-04-30 00:00:00 Completed [facility] Influenza Virus Vaccine (3+ yrs) 2014-04-30 00:00:00 Completed [facility] Influenza Virus Vaccine (3+ yrs) 2014-04-30 00:00:00 Completed [facility] Influenza Virus Vaccine (3+ yrs) 2014-04-30 00:00:00 Completed [facility] Influenza Virus Vaccine (3+ yrs) Unknown Completed [facility] Influenza Virus Vaccine (3+ yrs) Unknown Completed [facility] Influenza Virus Vaccine (3+ yrs) Unknown Completed [facility] Vital Signs Vital Name Observation Time Observation Value Comments S ource Systolic blood pressure 2021-08-05 21:26:00 123 mm[Hg] [facility] Diastolic blood pressure 2021-08-05 21:26:00 80 mm[Hg] [facility] Heart rate 2021-08-05 21:26:00 89 /min [facility] Body temperature 2021-08-05 21:26:00 35.78 Jeannette [facility] Respiratory rate 2021-08-05 21:26:00 18 /min [facility] Body height 2021-08-05 21:26:00 180.3 cm [facility] Body weight 2021-08-05 21:26:00 93.169 kg [facility] BMI 2021-08-05 21:26:00 28.65 kg/m2 [facility] Oxygen saturation in Arterial blood by Pulse oximetry 2021-08-05 21:26:00 97 /min [facility] Procedures Procedure Date / Time Performed Performing Clinicia n Source MEDICAL RELEASE/CLEARANCE FORMS 2023-08-05 06:01:00 Doctor Unassigned, [place] [facility] US ABDOMEN LIMITED 2021-08-13 22:40:00 Mary Newton [facility] ASSIGNMENT OF BENEFITS 2021-08-13 21:50:52 Docto r Unassigned, [place] [facility] Encounters Start Date/Time End Date/Time Encounter Type Admission Type Attending Clinicians Care Facility Care Department Encounter ID Source 2022-04-07 16:57:03 Outpatient [facility] [id number] [facility] 2021-05-24 14:53:31 Outpatient R CANDY NEWTON [facility] [id number] [facility] 2023-12-03 11:00:00 2023-12-03 11:00:00 Outpatient R CHIOMA VASQUES [facility] [id number] [facility] 2023-11-05 09:30:00 2023-11-05 09:30:00 [facility] [id number] 2023-11-02 14:39:41 2023-11-02 14:39:41 Outpatient SFA [facility] [id number] La Rosa 2023-08-06 15:30:00 2023-08-06 15:30:00 [facility] [id number] [facility] 2023-08-06 14:00:00 2023-08-06 14:00:00 [facility] [id number] [facility] 2023-08-06 00:00:00 2023-08-06 00:00:00 [facility] 1.840.114 350.1.13.10 4.2.7.2.686 [id number] [facility] 2023-08-05 00:00:00 2023-08-05 00:00:00 Orders Only Doctor Unassigned, [place] [facility] 1.2840.114 350.1.13.10 4.2.7.2.686 [id number] [facility] 2023-07-16 13:30:00 2023-07-16 13:30:00 Outpatient Antoinette MICHAEL VASQUESNURIACHACE [facility] [id number] [facility] 2023-06-04 15:30:00 2023-06-04 15:30:00 Outpatient Antoinette PARKERJoo CHIOMA [facility] [id number] [facility] 2021-08-21 15:30:00 2021-08-21 15:30:00 Outpatient CANDY ALMANZA [facility] [id number] [facility] 2021-08-21 14:15:00 2021-08-21 14:15:00 Outpatient R ASHLEY ARIAS [facility] [id number] [facility] 2021-08-13 15:53:10 2021-08-13 23:59:00 Outpatient R CANDY NEWTON [facility] [id number] [facility] 2021-08-13 15:53:10 2021-08-13 23:59:00 Hospital Encounter Candy Newton [facility] 1..840.114 350.1.13.10 4.2.7.2.686 [id number] [facility] 2021-08-13 00:00:00 2021-08-13 00:00:00 Orders Only Doctor Unassigned, [place] [facility] 1.2840.114 350.1.13.10 4.2.7.2.686 [id number] [facility] 2021-08-05 15:30:00 2021-08-05 16:25:06 Outpatient R CANDY NEWTON [facility] [id number] [facility] 2021-08-05 15:30:00 2021-08-05 16:25:06 Office Visit Candy Newton [facility] 1.840.114 350.1.13.10 4.2.7.2.686 [id number] [facility] 2021-08-05 00:00:00 2021-08-05 00:00:00 Orders Only Doctor Unassigned, [place] [facility] 1.2840.114 350.1.13.10 4.2.7.2.686 [id number] [facility] 2020-08-02 15:12:29 2020-08-02 15:27:29 Laboratory Only Only, Adc Test Candy Newton [facility] 1.2.840.114 350.1.13.10 4.2.7.2.686 [id number] [facility] 2020-08-02 14:15:00 2020-08-02 14:15:00 Outpatient R CANDY NEWTON [facility] [id number] [facility] 2020-08-02 00:00:00 2020-08-02 00:00:00 Orders Only Doctor Unassigned, [place] [facility] 1.2.840.114 350.1.13.10 4.2.7.2.686 [id number] [facility] 2020-08-01 10:45:10 2020-08-01 11:30:38 Office Visit Candy Newtno [facility] 1.2.840.114 350.1.13.10 4.2.7.2.686 [id number] [facility] 2020-08-01 10:30:00 2020-08-01 10:30:00 Outpatient R CANDY NEWTON [facility] [id number] [facility] 2020-07-23 00:00:00 2020-07-23 00:00:00 Prep For Surgery Candy Newton [facility] 1..840.114 350.1.13.10 4.2.7.2.686 [id number] [facility] 2020-07-23 00:00:00 2020-07-23 00:00:00 Prep For Surgery Candy Newton [facility] 1.2.840.114 350.1.13.10 4.2.7.2.686 [id number] 2020-07-22 00:00:00 2020-07-22 00:00:00 Telephone Candy Newton [facility] 1.2.840.114 350.1.13.10 4.2.7.2.686 [id number] [facility] 2020-07-22 00:00:00 2020-07-22 00:00:00 Telephone Candy Newton [facility] 1.2.840.114 350.1.13.10 4.2.7.2.686 [id number] 2020-04-19 00:00:00 2020-04-19 00:00:00 Orders Only Doctor Unassigned, [place] [facility] 1.2.840.114 350.1.13.10 4.2.7.2.686 [id number] [facility] 2020-04-19 00:00:00 2020-04-19 00:00:00 Telephone Candy Newton [facility] 1.2.840.114 350.1.13.10 4.2.7.2.686 [id number] [facility] 2020-04-19 00:00:00 2020-04-19 00:00:00 Orders Only Doctor Unassigned, [place] [facility] 1.2.840.114 350.1.13.10 4.2.7.2.686 [id number] 2020-04-19 00:00:00 2020-04-19 00:00:00 Telephone Candy Newton [facility] 1.2.840.114 350.1.13.10 4.2.7.2.686 [id number] 2020-04-01 00:00:00 2020-04-01 00:00:00 Telephone Candy Newton [facility] 1.2.840.114 350.1.13.10 4.2.7.2.686 [id number] 2020-04-01 00:00:00 2020-04-01 00:00:00 Telephone Candy Newton [facility] 1.2.840.114 350.1.13.10 4.2.7.2.686 [id number] [facility] 2020-02-01 00:00:00 2020-02-01 00:00:00 Orders Only Doctor Unassigned, [place] [facility] 1.2.840.114 350.1.13.10 4.2.7.2.686 [id number] 2020-02-01 00:00:00 2020-02-01 00:00:00 Orders Only Doctor Unassigned, [place] [facility] 1.2.840.114 350.1.13.10 4.2.7.2.686 [id number] [facility] 2020-01-15 00:00:00 2020-01-15 00:00:00 Orders Only Doctor Unassigned, [place] [facility] 1.2.840.114 350.1.13.10 4.2.7.2.686 [id number] 2020-01-15 00:00:00 2020-01-15 00:00:00 Orders Only Doctor Unassigned, [place] [facility] 1.2.840.114 350.1.13.10 4.2.7.2.686 [id number] [facility] 2020-01-09 00:00:00 2020-01-09 00:00:00 Telephone Candy Newton [facility] 1.2.840.114 350.1.13.10 4.2.7.2.686 [id number] 2020-01-09 00:00:00 2020-01-09 00:00:00 Telephone Candy Newton [facility] 1.2.840.114 350.1.13.10 4.2.7.2.686 [id number] [facility] 2019-12-26 15:30:00 2019-12-26 15:30:00 Outpatient R CANDY NEWTON [facility] [id number] [facility] 2019-12-11 00:00:00 2019-12-11 00:00:00 Orders Only Doctor Unassigned, [place] [facility] 1.2.840.114 350.1.13.10 4.2.7.2.686 [id number] 2019-12-11 00:00:00 2019-12-11 00:00:00 Orders Only Doctor Unassigned, [place] [facility] 1.2.840.114 350.1.13.10 4.2.7.2.686 [id number] [facility] 2019-03-28 00:00:00 2019-03-28 00:00:00 Refill Taisha Ch Denson [facility] 1.2.840.114 350.1.13.10 4.2.7.2.686 [id number] 2019-03-28 00:00:00 2019-03-28 00:00:00 Refill Taisha Ch [facility] 1.2.840.114 350.1.13.10 4.2.7.2.686 [id number] [facility] Notes Date/Time Note Provider Source 2023-08-12 13:45:34 Patient has not been seen by Dr Vasques- no fidencio X3 [facility] gastroenterology notified. ETING COMMUNICATIONS ASSOCIATE Jessa Cummings RN [facility] 2023-08-06 08:26:00 Received a request for Cardiac Clearance from [facility]. Placed into providers folder. Hester [facility]
[2024-03-05] MEDS ORDERED: MAGNESIUM SULFATE 1 gm IVPB 1 GM/100 ML BAG IV ONE (18:55)
[2024-03-05] MEDS ORDERED: NA CHLORIDE 0.9% 1,000 ML ONE (18:55)
[2024-03-05] MEDS ORDERED: ADENOSINE 6 MG/ 2ML VIAL IV ONE (18:55)
[2024-03-05 19:06] LABS: Absolute Basophils 0.1 K/uL (0-0.5); Absolute Eosinophils 0.1 K/uL (0-0.5); Absolute Lymphocytes (CBC) 2.8 K/uL (0.7-4.9); Absolute Monocytes 0.9 K/uL (0.1-1.3); Absolute Neutrophil 7.2 K/uL (1.8-8.0); Basophils % 0.6 % (0-1.3); Eosinophils % 0.9 % (0-4.4); Hematocrit 40.2 % (36.0-45.0); Hemoglobin 13.5 g/dL (12.0-15.0); MCH 30.3 pg (27.0-35.0); MCHC 33.5 g/dL (32.0-36.0); MCV 90.4 fL (80-100); MPV 9.2 fL (7.6-11.3); Monocytes % 8.3 % (3.3-12.3); Neutrophils % 65.2 % (41.7-73.7); Nucleated Red Blood Cells % 0.1 % (0-0); Platelets 299 thou/uL (152-406); RBC Red Blood Cell Count 4.45 M/uL (3.86-4.86); Red Cell Distribution Width 13.2 % (12.1-15.2)
[2024-03-05 19:29] LABS: Anion Gap 10.6 mEq/L (5.0-15.0); Magnesium 2.4 mg/dL (1.6-2.4); Potassium 3.6 mEq/L (3.5-5.1); Troponin High Sensitivity 5.4 pg/mL (<58.9)
--- NOTE | 2024-03-05 20:15 | RAD REPORT ---
EXAM DESCRIPTION: RAD - Chest Single View - 03/05/2024 7:30 pm CLINICAL HISTORY: PALPITATIONS COMPARISON: Chest Single View dated 10/28/2023; Chest Single View dated 07/12/2023; Chest Single View dated 09/16/2022; Chest Single View dated 01/03/2022 FINDINGS: Lines: Defibrillator pad overlies the left hemithorax. Lungs: No evidence of edema or pneumonia. Pleural: No significant pleural effusions or pneumothorax. Cardiac: The heart size is within normal limits. Mediastinum: Within normal limits. Bones: No acute fractures. Other: None IMPRESSION: No acute cardiopulmonary disease.
--- NOTE | 2024-03-05 20:46 | ER ---
Nurse's Notes [facility] Name: Steph Olguin Age: 53 yrs Sex: Female : 1970 Arrival Date: 03/05/2024 Time: 18:16 Bed 7 Private MD: Diagnosis: Supraventricular tachycardia Presentation: 03/05 18:44 Acuity: GRADY 2 nj1 18:44 Chief complaint: Patient states: Rapid heart rate for the last 45 minutes. Resolved nj1 nosebleed. 18:44 Method Of Arrival: Wheelchair nj1 18:57 Chief complaint: Patient states: HEART RACING AND NOSE BLEED. dd2 18:57 Coronavirus screen: At this time, the client does not indicate any symptoms associated dd2 with coronavirus-19. Ebola Screen: No symptoms or risks identified at this time. Initial Sepsis Screen: Does the patient meet any 2 criteria? No. Patient's initial sepsis screen is negative. Does the patient have a suspected source of infection? No. Patient's initial sepsis screen is negative. Risk Assessment: Do you want to hurt yourself or someone else? Patient reports no desire to harm self or others. Onset of symptoms was March 05, 2024. 18:57 Method Of Arrival: Ambulatory dd2 18:57 Acuity: GRADY 2 dd2 Triage Assessment: 19:05 General: Appears distressed, Behavior is cooperative. Pain: Complains of pain in dd2 anterior aspect of left upper chest and mid-sternal area. 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: 20:16 Not cp4 Historical: - Allergies: 19:05 No Known Allergies; dd2 - Home Meds: 19:05 buspirone 30 mg Oral tab 1 tab 2 times per day [Active]; lorazepam 1 mg Oral tab 1 tab dd2 3 times per day [Active]; metoprolol succinate 50 mg Oral tablet 1 tab once for Hypertension [Active]; Omeprazole Oral [Active]; tramadol 50 mg Oral tab 1 tab TID [Active]; Vemlidy 25 mg Oral tablet 1 tab daily [Active]; venlafaxine 75 mg Oral cp24 1 cap once daily [Active]; - PMHx: 19:05 Anxiety; Depression; Panic Attacks; SVT; volvulus; dd2 - PSHx: 19:05 None; dd2 - Immunization history:: Adult Immunizations unknown. - Infectious Disease History:: Denies. - Social history:: Smoking status: Patient denies any tobacco usage or history of. Screenin:00 [facility] ED Fall Risk Assessment (Adult) History of falling in the last 3 months, cp4 including since admission No falls in past 3 months (0 pts) Confusion or Disorientation No (0 pts) Intoxicated or Sedated No (0 pts) Impaired Gait No (0 pts) Mobility Assist Device Used No (0 pt) Altered Elimination No (0 pt) Score/Fall Risk Level 0 - 2 = Low Risk Oriented to surroundings, Maintained a safe environment, Assessed \T\ reinforced patient's understanding of fall precautions, Hourly rounding (assess needs \T\ fall precautionary measures) done. Abuse screen: Denies threats or abuse. Nutritional screening: No deficits noted. Tuberculosis screening: No symptoms or risk factors identified. Assessment: 19:00 General: Appears distressed, uncomfortable, Behavior is calm, cooperative, appropriate cp4 for age. Pain: Complains of pain in chest and mid-sternal area and anterior aspect of left upper chest Pain currently is 7 out of 10 on a pain scale. Neuro: Level of Consciousness is awake, alert, obeys commands, Oriented to person, place, time, situation. Cardiovascular: Rhythm is SVT. 19:00 Respiratory: Airway is patent Respiratory effort is even, unlabored. GI: No deficits cp4 noted. : No deficits noted. EENT: Reports nose bleed. Derm: No deficits noted. Musculoskeletal: No deficits noted. 19:07 Cardiovascular: Rhythm is sinus rhythm. cp4 20:31 Reassessment: Patient appears in no apparent distress at this time. Patient and/or cp4 family updated on plan of care and expected duration. Pain level reassessed. Patient is alert, oriented x 3, equal unlabored respirations, skin warm/dry/pink. Vital Signs: 18:57 BP 118 / 83; Pulse 169; Resp 19; Temp 98.2; Pulse Ox 100% ; dd2 19:07 BP 136 / 81; Pulse 96; Resp 18; Pulse Ox 98% ; cp4 19:30 BP 118 / 89; Pulse 91; Resp 18; Pulse Ox 100% ; cp4 20:00 BP 133 / 80; Pulse 86; Resp 18; Pulse Ox 100% ; cp4 ED Course: 18:18 Patient arrived in ED. mr 18:34 Kylee Reese, [facility]. kb 18:34 Gabo Contreras MD is Attending Physician. kb 19:00 Bed in low position. Call light in reach. Side rails up X2. cp4 19:04 Triage completed. nj1 19:05 Arm band placed on right wrist. Patient placed in an exam room, on a stretcher, on dd2 secured entrance monitor, on pulse oximetry. EKG completed in triage. Results shown to MD. 19:08 Inserted saline lock: 20 gauge in right antecubital area, using aseptic technique. dd2 Blood collected. Flushed with 10 mL NS. 19:15 Abby Tipton is Primary Nurse. cp4 19:32 XRAY Chest (1 view) In Process Unspecified. EDMS 21:08 Provided Education on: post er care. Client placed on continuous cardiac and pulse bm8 oximetry monitoring. NIBP monitoring applied. night monitor on. Pulse ox on. NIBP on. Door closed. Noise minimized. Warm blanket given. Pillow given. Verbal reassurance given. Head of bed elevated. 21:08 IV discontinued, intact, bleeding controlled, No redness/swelling at site. Pressure bm8 dressing applied. 21:10 No provider procedures requiring assistance completed. Assist provider with bm8 cardioversion for treatment of SVT Set up for procedure. Performed by Gabo Contreras MD Monitored with secured entrance monitor, pulse ox, Post procedure rhythm is sinus rhythm. Patient tolerated well. used adenosine. Administered Medications: 18:40 Drug: NS 0.9% IV 1000 ml IV at 1000 ml once Route: IV; Rate: 1000 ml; Site: right ko1 antecubital; 21:08 Follow up: Response: No adverse reaction; IV Status: Completed infusion; IV Intake: bm8 1000ml 18:45 Drug: Adenocard IVP 6 mg IVP once Route: IVP; Site: right antecubital; ko1 21:08 Follow up: Response: No adverse reaction bm8 19:00 Drug: Magnesium Sulfate IVPB 1 grams IVPB once over 1 hrs Route: IVPB; Infused Over: 1 ko1 hrs; Site: right antecubital; 21:08 Follow up: Response: No adverse reaction; IV Status: Completed infusion; IV Intake: bm8 100ml Medication: 19:00 VIS not applicable for this client. cp4 Intake: 21:08 IV: 100ml; Total: 100ml. bm8 21:08 IV: 1000ml; Total: 1100ml. bm8 Outcome: 20:45 Discharge ordered by . blu 21:08 Discharged to home ambulatory, bm8 21:08 Condition: stable 21:08 Discharge instructions given to patient, Instructed on discharge instructions, follow up and referral plans. safety practices, Demonstrated understanding of instructions, follow-up care, medications, 21:11 Patient left the ED. bm8 Signatures: Dispatcher [employer] EDMS Kylee Reese, DIRECTOR HEART-C DIRECTOR HEART-CkBushra Carlson, Reg Reg mr Abby Arechiga, RN RN ko1 Kacey Trotter RN RN nj1 Abby Tipton cp4 John Valle RN RN bm8 MUSHTAQ CRAFT, RN RN dd2 Corrections: (The following items were deleted from the chart) 19:04 18:44 Chief complaint: nj1 nj1
--- NOTE | 2024-03-05 20:46 | EDPHYS ---
Physician Documentation [facility] Name: Steph Olguin Age: 53 yrs Sex: Female : 1970 Arrival Date: 03/05/2024 Time: 18:16 Bed 7 Private MD: ED Physician Gabo Contreras HPI: 03/05 22:40 This 53 yrs old Female presents to ER via Ambulatory with complaints of Nose Bleed, kb Fast heart rate. 22:40 Pt is a 53 year old female who presents for palpitations that started 45 minutes podiatrist. kb States she was getting in the shower and had planned to come in to be evaluated because she has had 3 nosebleeds in the last 2 days. States the palpitations started so she decided to come sooner. Denies chest pain, shortness of breath. States she has had this before ("it's my tachycardia"). States she was told to follow up with cardiology but she hasn't had the symptoms in a while so she didn't go. . 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 - Infectious Disease History:: Denies. - Social history:: Smoking status: Patient denies any tobacco usage or history of. ROS: 21:21 Constitutional: As per HPI kb Exam: 18:51 ECG was reviewed by the Attending Physician. kb 19:01 ECG was reviewed by the Attending Physician. kb 21:21 Constitutional: This is a well developed, well nourished patient who is awake, alert, kb and in no acute distress. Head/Face: Normocephalic, atraumatic. ENT: Moist Mucous membranes Respiratory: Respirations even and unlabored. No increased work of breathing. Talking in full sentences Abdomen/GI: Soft, non-tender. No distention Skin: Warm, dry with normal turgor. Normal color. MS/ Extremity: Pulses equal, no cyanosis. Neurovascular intact. Full, normal range of motion. Neuro: Awake and alert, GCS 15, oriented to person, place, time, and situation. Moves all extremities. Normal gait. 21:21 Cardiovascular: Rate: tachycardic, Rhythm: regular, Pulses: no pulse deficits are appreciated, Vital Signs: 18:57 BP 118 / 83; Pulse 169; Resp 19; Temp 98.2; Pulse Ox 100% ; dd2 19:07 BP 136 / 81; Pulse 96; Resp 18; Pulse Ox 98% ; cp4 19:30 BP 118 / 89; Pulse 91; Resp 18; Pulse Ox 100% ; cp4 20:00 BP 133 / 80; Pulse 86; Resp 18; Pulse Ox 100% ; cp4 MDM: 18:34 Patient medically screened. kb 21:21 Data reviewed: vital signs, nurses notes. kb 22:38 Differential diagnosis: arrythmia, dehydration, stress disorder. Consideration of kb Admission/Observation Escalation of care including admission/observation considered. admission considered for palpitations, but labs reassuring, pt asymptomatic with NSR after treatment. Counseling: I had a detailed discussion with the patient and/or guardian regarding the historical points, exam findings, and any diagnostic results supporting the discharge/admit diagnosis, lab results, radiology results, the need for outpatient follow up, a designer, to return to the emergency department if symptoms worsen or persist or if there are any questions or concerns that arise at home. Response to treatment: the patient's symptoms have resolved after treatment. 03/05 18:54 Order name: Basic Metabolic Panel; Complete Time: 19:36 kb 03/05 18:54 Order name: CBC with Diff; Complete Time: 19:11 kb 03/05 18:54 Order name: Magnesium; Complete Time: 19:36 kb 03/05 18:54 Order name: Troponin HS; Complete Time: 19:36 kb 03/05 18:54 Order name: XRAY Chest (1 view); Complete Time: 20:27 kb 03/05 18:54 Order name: Cardiac monitoring; Complete Time: 19:06 kb 03/05 18:54 Order name: EKG - Nurse/Tech; Complete Time: 19:06 kb 03/05 18:54 Order name: IV Saline Lock; Complete Time: 19:06 kb 03/05 18:54 Order name: Labs collected and sent; Complete Time: 19:06 kb 03/05 18:54 Order name: O2 Per Protocol; Complete Time: 19:06 kb 03/05 18:54 Order name: O2 Sat Monitoring; Complete Time: 19:06 kb EC:51 Rate is 191 beats/min. Rhythm is regular. QRS [place] is Normal. QRS interval is normal at kb 80 msec. QT interval is normal at 442 msec. Clinical impression: SVT. 19:01 Rate is 95 beats/min. Rhythm is regular. QRS [place] is Normal. NE interval is normal at kb 138 msec. QRS interval is normal at 98 msec. QT interval is normal at 442 msec. Administered Medications: 18:40 Drug: NS 0.9% IV 1000 ml IV at 1000 ml once Route: IV; Rate: 1000 ml; Site: right ko1 antecubital; 21:08 Follow up: Response: No adverse reaction; IV Status: Completed infusion; IV Intake: bm8 1000ml 18:45 Drug: Adenocard IVP 6 mg IVP once Route: IVP; Site: right antecubital; ko1 21:08 Follow up: Response: No adverse reaction bm8 19:00 Drug: Magnesium Sulfate IVPB 1 grams IVPB once over 1 hrs Route: IVPB; Infused Over: 1 ko1 hrs; Site: right antecubital; 21:08 Follow up: Response: No adverse reaction; IV Status: Completed infusion; IV Intake: bm8 100ml Disposition: 03/06 08:42 Co-signature as Attending Physician, Gabo Contreras MD I reviewed the patient's care rn provided by the Advanced Practice Provider and agree with the diagnosis and treatment plan. Disposition Summary: 03/05/24 20:45 Discharge Ordered Notes: Location: Home Condition: Stable kb Diagnosis - Supraventricular tachycardia kb Followup: kb - With: Private Physician - When: 2 - 3 days - Reason: Recheck today's complaints, Continuance of care, Re-evaluation by your physician Followup: kb - With: Emergency Department - When: As needed - Reason: Worsening of condition Discharge Instructions: - Discharge Summary Sheet kb - Supraventricular Tachycardia, Adult, [id number] kb Forms: - Medication Reconciliation Form kb - Antibiotic Education kb - Prescription Opioid Use kb - Patient Portal Instructions kb - Leadership Thank You Letter kb Critical care time excluding procedures: 03/05 21:20 Critical care time: Bedside Care: 20 minutes, Consultation: 10 minutes. Total time: 30 kb minutes Signatures: Dispatcher [employer] EDKylee Tolbert, STUDENT FINANCE SPECIALIST-C STUDENT FINANCE SPECIALIST-Gabo Rubio MD MD rn Abby Arechiga RN RN ko1 MUSHTAQ CRAFT RN RN dd2 John Valle RN bm8 Corrections: (The following items were deleted from the chart) 18:54 18:54 Chest Single View+RAD.RAD.BRZ ordered. [facility]
[2024-03-05 21:37] VITALS: TEMP 98.2
[2024-03-05 21:53] VITALS: O2SAT 100
[2024-03-05 21:54] VITALS: BP 133/80
--- NOTE | 2024-03-06 13:45 | EKG ---
Test Date: 2024-03-05 Test Time: 19:01:26 Funeral Counselor: SADIE MEASUREMENT RESULTS: Intervals: Rate: 95 GA: 138 QRSD: 98 QT: 352 QTc: 442 [place]: P: 57 GA: 138 QRS: 12 T: 51 INTERPRETIVE STATEMENTS: Normal sinus rhythm Normal ECG Compared to ECG 03/05/2024 18:51:13 Supraventricular tachycardia no longer present Myocardial infarct finding no longer present ST (T wave) deviation no longer present Electronically Signed On 03-06-24 13:43:36 CDT by Surjit Jain
--- NOTE | 2024-03-06 13:46 | EKG ---
Test Date: 2024-03-05 Test Time: 18:51:13 Material Handling Supervisor: SADIE MEASUREMENT RESULTS: Intervals: Rate: 191 [place]: QRSD: 80 QT: 248 QTc: 442 [place]: P: NC: QRS: 44 T: 260 INTERPRETIVE STATEMENTS: Age and gender specific ECG analysis Supraventricular tachycardia Posterior infarct, possibly acute Marked ST abnormality, possible inferolateral subendocardial injury ACUTE [place] Abnormal ECG Compared to ECG 10/28/2023 15:13:06 Myocardial infarct finding now present ST (T wave) deviation now present Sinus rhythm no longer present Ventricular preexcitation no longer present Electronically Signed On 03-06-24 13:43:48 CDT by Surjit Jain
== END 2024-03-05 21:11 | disposition home or self-care (01) ==
LOC: ER 18:16
DX: I47.10 Supraventricular tachycardia, unspecified (principal); R04.0 Epistaxis; F41.9 Anxiety disorder, unspecified
CPT/HCPCS: 92960; 96365; 93005 ×2; 85025; 80048; 36415; 83735; 84484; 71045; 96375; 99285; 96366; J0153; J3475; J7030

== ENCOUNTER 2025-04-18 07:51 | Day surgery (SDC) | payer MEDICAID ==
[2025-04-17 11:36] LABS: Absolute Lymphocytes (CBC) 2.5 K/uL (0.7-4.9); Hematocrit 37.1 % (36.0-45.0); Hemoglobin 12.3 g/dL (12.0-15.0); MCH 27.7 pg (27.0-35.0); MCHC 33.1 g/dL (32.0-36.0); MCV 83.6 fL (80-100); MPV 9.2 fL (7.6-11.3); Nucleated RBC Absolute Count 0.0 (0-0); Nucleated Red Blood Cells % 0.1 % (0-0); RBC Red Blood Cell Count 4.43 M/uL (3.86-4.86); White Blood Count 7.50 thou/uL (4.3-10.9)
[2025-04-17 11:50] LABS: Anion Gap 8.3 mEq/L (5.0-15.0); BUN Blood Urea Nitrogen 16.0 mg/dL (7-18); Glucose Level 87.0 mg/dL (74-106); Potassium 4.3 mEq/L (3.5-5.1)
[2025-04-18] MEDS: Ringers Lactate 1,000 ML IV ONE (08:25)
[2025-04-18] MEDS ORDERED: LIDOCAINE 1% MPF 30 ML VIAL ONE (09:47)
[2025-04-18] MEDS ORDERED: ONDANSETRON 4 MG/2 ML VIAL ONE (10:15)
[2025-04-18] MEDS ORDERED: GLYCOPYRROLATE 0.2 MG/ML SYR ONE (10:15)
[2025-04-18 11:52] VITALS: BP 124/64; TEMP 98; O2SAT 100
== END 2025-04-18 10:56 | disposition home or self-care (01) ==
LOC: OR 07:51
PROVIDERS: ATTEND Internal Medicine Gastroenterology
PROC: 0DJD8ZZ Inspection of Lower Intestinal Tract, Via Natural or Artificial Opening Endoscopic (ICD-10-PCS; principal; 2025-04-18 09:15)
PROC: 0DB68ZX Excision of Stomach, Via Natural or Artificial Opening Endoscopic, Diagnostic (ICD-10-PCS; 2025-04-18 09:15)
DX: K52.3 Indeterminate colitis (principal); R10.32 Left lower quadrant pain; K92.1 Melena; R10.11 Right upper quadrant pain; K64.8 Other hemorrhoids; K44.9 Diaphragmatic hernia without obstruction or gangrene; K29.50 Unspecified chronic gastritis without bleeding; K21.9 Gastro-esophageal reflux disease without esophagitis; R12 Heartburn; R14.0 Abdominal distension (gaseous)
CPT/HCPCS: 93005; 85025; 80048; 36415; 88312; 88305; 45378; 43239; J2704; J2003; J2405; J7120

== ENCOUNTER 2025-05-17 04:06 | Emergency (ER) | payer MEDICAID ==
[2025-05-17] MEDS ORDERED: LORazepam 2 MG/ML VIAL ONE ×2 (04:17→04:47)
[2025-05-17] MEDS ORDERED: MAGNESIUM SULFATE 1 gm IVPB 1 GM/100 ML BAG IV ONE (04:18)
[2025-05-17 04:50] LABS: Absolute Lymphocytes (CBC) 2.4 K/uL (0.7-4.9); Hematocrit 36.7 % (36.0-45.0); Hemoglobin 12.4 g/dL (12.0-15.0); MCH 28.1 pg (27.0-35.0); MCHC 33.8 g/dL (32.0-36.0); MCV 83.3 fL (80-100); MPV 9.0 fL (7.6-11.3); Nucleated RBC Absolute Count 0.0 (0-0); Nucleated Red Blood Cells % 0.1 % (0-0); RBC Red Blood Cell Count 4.41 M/uL (3.86-4.86); White Blood Count 9.10 thou/uL (4.3-10.9)
[2025-05-17 04:59] LABS: Anion Gap 19.7 mEq/L (5.0-15.0); BUN Blood Urea Nitrogen 11.0 mg/dL (7-18); Glucose Level 105.0 mg/dL (74-106); NT PRO-BNP 207.0 pg/mL (<125); Potassium 3.7 mEq/L (3.5-5.1); Troponin High Sensitivity 9.8 pg/mL (<58.9)
[2025-05-17] MEDS ORDERED: NA CHLORIDE 0.9% 1,000 ML ONE ×2 (05:07→05:48)
[2025-05-17] MEDS ORDERED: PROPRANOLOL HCL 40 MG TAB ONE (05:47)
--- NOTE | 2025-05-17 05:55 | RAD REPORT ---
CLINICAL HISTORY: Palpitations. COMPARISON: None. TECHNIQUE: XR CHEST 1 VIEW 05/17/2025 4:16 AM CDT FINDINGS: Cardiac silhouette is normal in size. Lungs are clear without consolidation, atelectasis, mass or cam[place] ma. There is no pleural effusion. There is no pneumothorax. There are no acute osseous findings. IMPRESSION: Clear lungs. Electronically signed by: John Vu MD 05/17/2025 05:44 AM CDT RP Due to temporary technical issues with the PACS/VuCOMP reporting system, reports are being micheal d by the in-house radiologist without review as a courtesy to ensure prompt reporting the interpreting radiologist is fully responsible for the content of the report. Transcribed Date/Time: 05/17/2025 5:55 AM
[2025-05-17 06:47] LABS: Anion Gap 16.1 mEq/L (5.0-15.0); BUN Blood Urea Nitrogen 11.0 mg/dL (7-18); Glucose Level 97.0 mg/dL (74-106); Potassium 4.1 mEq/L (3.5-5.1); Troponin High Sensitivity 24.8 pg/mL (<58.9)
--- NOTE | 2025-05-17 07:10 | EDPHYS ---
Physician Documentation [facility] Name: Steph Olguin Age: 55 yrs Sex: Female : 1970 Arrival Date: 05/17/2025 Time: 04:06 Bed 6 Private MD: ED Physician Gabo Contreras HPI: 05/17 05:09 This 55 yrs old Female presents to ER via EMS with complaints of Anxiety. rn 05:09 Patient reports is having an anxiety attack, took some of her lorazepam at home and did rn not resolve so came in for evaluation. Patient states also has a history of SVT and has been given adenosine in the past. This feels different to her. Patient states this feels identical to previous anxiety attacks. Denies any chest pain. Reports heart racing. No syncope or dizziness.. Historical: - Allergies: 04:10 Omeprazole; bm8 - PMHx: 04:10 Anxiety; Depression; Panic Attacks; SVT; volvulus; bm8 - PSHx: 04:10 Unable to Obtain; bm8 - Immunization history:: Adult Immunizations unknown. - Infectious Disease History:: Denies. - Social history:: Smoking status: unknown Patient uses alcohol, Patient/guardian denies using street drugs. - Family history:: not pertinent. - Hospitalizations: : No recent hospitalization is reported. ROS: 05:09 Constitutional: Negative for fever, chills, and weight loss, Cardiovascular: Positive rn for palpitations and heart racing Respiratory: Negative for shortness of breath, cough, wheezing, and pleuritic chest pain, Abdomen/GI: Negative for abdominal pain, nausea, vomiting, diarrhea, and constipation, MS/Extremity: Negative for injury and deformity, Skin: Negative for injury, rash, and discoloration, Neuro: Negative for headache, weakness, numbness, tingling, and seizure, Exam: 05:09 Constitutional: This is a well developed, well nourished patient who is awake, alert, rn appears anxious ENT: Dry mucous membranes Cardiovascular: Tachycardic, regular. Respiratory: No increased work of breathing, no retractions or nasal flaring. MS/ Extremity: Pulses equal, no cyanosis. Neurovascular intact. Full, normal range of motion. Equal circumference. Neuro: Awake and alert, GCS 15 05:52 ECG was reviewed by the Attending Physician. rn Vital Signs: 04:08 BP 140 / 118; Pulse 147; Resp 16; Pulse Ox 100% ; Weight 99.79 kg; Height 5 ft. 11 in. bm8 ; Pain 0/10; 04:45 BP 137 / 91; Pulse 138; Resp 17; Pulse Ox 100% on R/A; nh2 05:30 BP 116 / 88; Pulse 133; Resp 18; Pulse Ox 100% ; nh2 06:00 BP 143 / 103; Pulse 131; Resp 20; Pulse Ox 100% on R/A; nh2 06:19 BP 143 / 93; Pulse 138; Resp 18; Pulse Ox 100% on R/A; nh2 06:53 BP 130 / 96; Pulse 120; rn 07:10 Pulse 110; rn 07:25 BP 113 / 66; Pulse 106; Resp 16; Pulse Ox 96% on 2 lpm NC; kb4 04:08 Body Mass Index 30.68 (99.79 kg, 180.34 cm) bm8 04:08 Pain Scale: Adult bm8 MDM: 04:07 Medical Screening Exam initiated rn 05:13 Independent interpretation of the following test(s) in the Emergency Department strategy intern monitor: rate is 124 beats/min, Rhythm is regular, sinus tachycardia, with no ectopy, Interpretation: tachycardia. ED course: ECG and monitor still shows sinus tachycardia. No evidence to support SVT at this time. Patient continues to work herself up and demanded adenosine. Explained to her that this is sinus tachycardia on the monitor and on 2 separate ECGs. Will continue to observe patient. Despite getting Ativan patient still extremely anxious, tremulous.. 06:06 ED course: Troponin negative, chest x-ray images negative for pneumonia or pneumothorax rn per my interpretation. Patient still very anxious but heart rate down to 125. Still sinus tachycardia on monitor. Ordered propranolol for further management. Patient overall feels better. Patient exhibiting signs of anxiety and still very worked up, constantly asking about sounds around her and sounds from monitor.. 07:07 Differential diagnosis: arrythmia, dehydration, stress disorder. Data reviewed: vital rn signs, nurses notes, lab test result(s), EKG, radiologic studies, plain films, and as a result, I will discharge patient. Care significantly affected by the following chronic conditions: Anxiety, SVT. Counseling: I had a detailed discussion with the patient and/or guardian regarding the historical points, exam findings, and any diagnostic results supporting the discharge/admit diagnosis, lab results, radiology results, the need for outpatient follow up, to return to the emergency department if symptoms worsen or persist or if there are any questions or concerns that arise at home. Response to treatment: the patient's symptoms have markedly improved after treatment. ED course: Patient feels much better, requesting to be discharged. Heart rate has dropped down to 110, persistent sinus tachycardia. Repeat troponin negative.. 05/17 04:16 Order name: Basic Metabolic Panel; Complete Time: 05:03 rn 05/17 04:16 Order name: CBC with Diff; Complete Time: 05:03 rn 05/17 04:16 Order name: NT PRO-BNP; Complete Time: 05:03 rn 05/17 04:16 Order name: Troponin HS; Complete Time: 05: rn 05/17 05:04 Order name: ETOH Level; Complete Time: 05:30 rn 05/17 06:12 Order name: BMP; Complete Time: 06: rn 05/17 06:12 Order name: Troponin High Sensitivity; Complete Time: 06: rn 05/17 04:16 Order name: XRAY Chest (1 view) rn 05/17 04:16 Order name: Cardiac monitoring; Complete Time: 04: rn 05/17 04:16 Order name: EKG - Nurse/Tech; Complete Time: : rn 05/17 04:16 Order name: IV Saline Lock; Complete Time: 04: rn 05/17 04:16 Order name: Labs collected and sent; Complete Time: 04: rn 05/17 04:16 Order name: O2 Per Protocol; Complete Time: : rn 05/17 04:16 Order name: O2 Sat Monitoring; Complete Time: : rn EC:52 Rate is 125 beats/min. Rhythm is regular. QRS [place] is Normal. [place] interval is normal. rn QRS interval is normal. QT interval is normal. No Q waves. T waves are Normal. No ST changes noted. Clinical impression: Sinus tachycardia. Interpreted by me. Reviewed by me. Administered Medications: 04:24 Drug: Magnesium Sulfate IVPB 1 grams IVPB once over 1 hrs Route: IVPB; Infused Over: 1 mf3 hrs; Site: right antecubital; 05:27 Follow up: Response: No adverse reaction; IV Status: Completed infusion nh2 04:24 Drug: Ativan IVP 1 mg IVP once Route: IVP; Site: right antecubital; mf3 04:48 Follow up: Response: No adverse reaction; Anxiety unchanged nh2 04:52 Drug: Ativan IVP 1 mg IVP once Route: IVP; Site: right antecubital; mf3 05:30 Follow up: Response: No adverse reaction; Anxiety unchanged nh2 05:17 Drug: NS 0.9% IV 1000 ml IV at 1000 ml once; to be given as a bolus over 60 minutes nh2 Route: IV; Rate: 1000 ml; Site: right antecubital; 07:37 Follow up: IV Status: Completed infusion kb4 06:02 Drug: NS 0.9% IV 1000 ml IV at 1000 ml once; to be given as a bolus over 60 minutes nh2 Route: IV; Rate: 1000 ml; Site: right antecubital; 07:36 Follow up: IV Status: Completed infusion kb4 06:03 Not Given (Patient Refused): [id number] mg PO once nh2 06:06 Not Given (Duplicate Order): droperidol1.25 mg IVP once rn 06:07 Drug: Propranolol PO 20 mg PO once Route: PO; nh2 07:36 Follow up: Response: No adverse reaction kb4 Disposition Summary: 05/17/25 07:09 Discharge Ordered Notes: Location: Home rn Problem: new rn Symptoms: have improved rn Condition: Stable rn Diagnosis - Tachycardia, unspecified rn - Anxiety disorder, unspecified rn - Dehydration rn - Alcohol use, unspecified rn Followup: rn - With: Private Physician - When: As needed - Reason: Recheck today's complaints, Re-evaluation by your physician Discharge Instructions: - Discharge Summary Sheet rn - Dehydration, Adult rn - Sinus Tachycardia rn - Managing Anxiety, Adult rn Forms: - Medication Reconciliation Form rn - Antibiotic learning support assistant - Prescription Opioid Use rn - Patient Portal Instructions rn - Leadership Thank You Letter record label intern time excluding procedures: 07:07 Critical care time: Bedside Care: 35 minutes. Total time: 35 minutes rn Signatures: Dispatcher [employer] Gabo Briceno MD MD rn McDonald, Brad RN RN [id number] Elie Alcaraz Jr, RN RN nh2 Polina Wolff RN RN mf3 Mayda Reyes RN kb4 Corrections: (The following items were deleted from the chart) 06:12 06:12 BASIC METABOLIC PANEL+C.LAB.BRZ ordered. EDMS EDMS 06: 06:12 Troponin High Sensitivity+C.LAB.BRZ ordered. EDMS EDMS
--- NOTE | 2025-05-17 07:10 | ER ---
Nurse's Notes [facility] Name: Steph Olguin Age: 55 yrs Sex: Female : 1970 Arrival Date: 05/17/2025 Time: 04:06 Bed 6 Private MD: Diagnosis: Tachycardia, unspecified;Anxiety disorder, unspecified;Dehydration;Alcohol use, unspecified Presentation: 05/17 04:08 Chief complaint: Patient states: I am very anxious. Coronavirus screen: At this time, bm8 the client does not indicate any symptoms associated with coronavirus-19. Ebola Screen: Patient negative for fever greater than or equal to 101.5 degrees Fahrenheit, and additional compatible Ebola Virus Disease symptoms Patient denies exposure to infectious person. Patient denies travel to an Ebola-affected area in the 21 days before illness onset. No symptoms or risks identified at this time. Initial Sepsis Screen: Does the patient meet any 2 criteria? No. Patient's initial sepsis screen is negative. Does the patient have a suspected source of infection? No. Patient's initial sepsis screen is negative. Risk Assessment: Do you want to hurt yourself or someone else? Patient reports no desire to harm self or others. Onset of symptoms was May 17, 2025 at 03:00. 04:08 Acuity: GRADY 2 bm8 04:08 Acuity: GRADY 3 bm8 04:08 Chief complaint: EMS states: pt had called PD out for a suspected intruder around her [facility] home, police checked it out and there were no signs of an intruder. 04:14 Method Of Arrival: EMS: [facility] 8 Triage Assessment: 04:10 General: Appears distressed, Behavior is anxious, Smells of alcohol. Pain: Denies pain. bm8 EENT: No deficits noted. No signs and/or symptoms were reported regarding the EENT system. Neuro: No deficits noted. Level of Consciousness is awake, alert, obeys commands, Oriented to person, place, time, situation, Appropriate for age. Cardiovascular: Denies chest pain, Capillary refill < 3 seconds in bilateral fingers Patient's skin is warm and dry. Respiratory: Airway is patent Respiratory effort is even, unlabored, Respiratory pattern is regular, symmetrical. GI: No deficits noted. No signs and/or symptoms were reported involving the gastrointestinal system. : No deficits noted. No signs and/or symptoms were reported regarding the genitourinary system. Derm: No deficits noted. No signs and/or symptoms reported regarding the dermatologic system. Musculoskeletal: No deficits noted. No signs and/or symptoms reported regarding the musculoskeletal system. Historical: - Allergies: 04:10 Omeprazole; bm8 - PMHx: 04:10 Anxiety; Depression; Panic Attacks; SVT; volvulus; bm8 - PSHx: 04:10 Unable to Obtain; bm8 - Immunization history:: Adult Immunizations unknown. - Infectious Disease History:: Denies. - Social history:: Smoking status: unknown Patient uses alcohol, Patient/guardian denies using street drugs. - Family history:: not pertinent. - Hospitalizations: : No recent hospitalization is reported. Screenin:28 [facility] ED Fall Risk Assessment (Adult) History of falling in the last 3 months, nh2 including since admission No falls in past 3 months (0 pts) Confusion or Disorientation No (0 pts) Intoxicated or Sedated No (0 pts) Impaired Gait No (0 pts) Mobility Assist Device Used No (0 pt) Altered Elimination No (0 pt) Score/Fall Risk Level 0 - 2 = Low Risk Oriented to surroundings, Maintained a safe environment, Educated pt \\T\\ family on fall prevention, incl call for assistance when getting out of bed, Assessed \\T\\ reinforced patient's understanding of fall precautions. Nutritional screening: No deficits noted. Tuberculosis screening: No symptoms or risk factors identified. 04:28 Abuse screen: Denies threats or abuse. Denies injuries from another. nh2 Assessment: 04:44 Reassessment: pt heard calling out for help. Upon entering room, patient was seen nh2 standing, states "I just feel so anxious, I need that medication that stops my heart for a few seconds. I know it will help me" Reports no relief since being medicated. Client repositioned safely back to bed with call light placed within reach. MD notified. 04:44 Cardiovascular: Denies chest pain, shortness of breath, Rhythm is sinus tachycardia. nh2 Respiratory: Respiratory effort is even, unlabored. 05:15 Reassessment: Patient and/or family updated on plan of care and expected duration. Pain nh2 level reassessed. Patient is alert, oriented x 3, equal unlabored respirations, skin warm/dry/pink. Patient denies pain at this time. 06:00 Reassessment: pt reports still feeling anxious with no relief from medications, states nh2 "I feel like I am having a heart attack." Denied repeat EKG. Cardiac monitoring maintained via bedside monitor. Rhythm is currently sinus tach at 130 bpm. Denies chest pain, indigestion, arm numbness, and SOB. S1 and S2 auscultated. Lungs CTA bilaterally. Skin is warm and dry, appropriate for race. MD notified of current state. 06:01 Reassessment: MD at bedside talking to patient. nh2 06:40 Reassessment: Patient and/or family updated on plan of care and expected duration. Pain nh2 level reassessed. Patient is alert, oriented x 3, equal unlabored respirations, skin warm/dry/pink. Patient denies pain at this time. 07:05 Reassessment: called pts brother for ride arrangement. kb4 Vital Signs: 04:08 BP 140 / 118; Pulse 147; Resp 16; Pulse Ox 100% ; Weight 99.79 kg; Height 5 ft. 11 in. bm8 ; Pain 0/10; 04:45 BP 137 / 91; Pulse 138; Resp 17; Pulse Ox 100% on R/A; nh2 05:30 BP 116 / 88; Pulse 133; Resp 18; Pulse Ox 100% ; nh2 06:00 BP 143 / 103; Pulse 131; Resp 20; Pulse Ox 100% on R/A; nh2 06:19 BP 143 / 93; Pulse 138; Resp 18; Pulse Ox 100% on R/A; nh2 06:53 BP 130 / 96; Pulse 120; rn 07:10 Pulse 110; rn 07:25 BP 113 / 66; Pulse 106; Resp 16; Pulse Ox 96% on 2 lpm NC; kb4 04:08 Body Mass Index 30.68 (99.79 kg, 180.34 cm) bm8 04:08 Pain Scale: Adult bm8 ED Course: 04:07 Patient arrived in ED. gm2 04:07 Gabo Contreras MD is Attending Physician. rn 04:08 John Valle, RN is Primary Nurse. bm8 04:09 Triage completed. bm8 04:10 Arm band placed on right wrist. bm8 04:20 No provider procedures requiring assistance completed. Inserted saline lock: 20 gauge nh2 in right antecubital area, using aseptic technique. Blood collected. Flushed with 10 mL NS. 04:28 Patient has correct armband on for positive identification. Bed in low position. Call nh2 light in reach. Side rails up X 1. Provided Education on: care plan for today's visit. 04:55 XRAY Chest (1 view) In Process Unspecified. EDMS 05:15 EKG done, by ED staff, reviewed by Gabo Contreras MD. nh2 06:19 Troponin High Sensitivity Sent. mf3 06:19 BMP Sent. mf3 07:40 IV discontinued, intact, bleeding controlled, No redness/swelling at site. Pressure kb4 dressing applied. Administered Medications: 04:24 Drug: Magnesium Sulfate IVPB 1 grams IVPB once over 1 hrs Route: IVPB; Infused Over: 1 mf3 hrs; Site: right antecubital; 05:27 Follow up: Response: No adverse reaction; IV Status: Completed infusion nh2 04:24 Drug: Ativan IVP 1 mg IVP once Route: IVP; Site: right antecubital; mf3 04:48 Follow up: Response: No adverse reaction; Anxiety unchanged nh2 04:52 Drug: Ativan IVP 1 mg IVP once Route: IVP; Site: right antecubital; mf3 05:30 Follow up: Response: No adverse reaction; Anxiety unchanged nh2 05:17 Drug: NS 0.9% IV 1000 ml IV at 1000 ml once; to be given as a bolus over 60 minutes nh2 Route: IV; Rate: 1000 ml; Site: right antecubital; 07:37 Follow up: IV Status: Completed infusion kb4 06:02 Drug: NS 0.9% IV 1000 ml IV at 1000 ml once; to be given as a bolus over 60 minutes nh2 Route: IV; Rate: 1000 ml; Site: right antecubital; 07:36 Follow up: IV Status: Completed infusion kb4 06:03 Not Given (Patient Refused): dethroyajwp23 mg PO once nh2 06:06 Not Given (Duplicate Order): droperidol1.25 mg IVP once rn 06:07 Drug: Propranolol PO 20 mg PO once Route: PO; nh2 07:36 Follow up: Response: No adverse reaction kb4 Medication: 04:29 VIS not applicable for this client. nh2 Outcome: 07:09 Discharge ordered by . rn 07:39 Discharged to home ambulatory, kb4 07:39 Condition: stable 07:39 Discharge instructions given to patient, Instructed on discharge instructions, follow up and referral plans. Demonstrated understanding of instructions, follow-up care, 07:41 Patient left the ED. kb4 Signatures: Dispatcher [employer] EDGabo Joyner MD MD rn Mitchell, Ginger 2 John Valle RN RN bm8 Elie Alcaraz Jr, RN RN nh2 Mayda Reyes RN RN kb4 Polina Wolff RN RN mf3 Corrections: (The following items were deleted from the chart) 04:14 04:08 Method Of Arrival: Ambulatory [place] [id number] 04:15 04:10 General: Appears distressed, Behavior is anxious, [place] [id number] 05:19 04:44 Reassessment: pt seen standing in room, calling out for help. Reports feeling nh2 anxious with no changes since being medicated. Client repositioned safely back to bed. MD notified, call light placed within reach nh2 05:21 04:44 Reassessment: pt heard calling out for help. Upon entering room, patient was seen nh2 standing, reports feeling anxious with no relief since being medicated. Client repositioned safely back to bed. MD notified, call light placed within reach nh2 05:26 04:44 Reassessment: pt heard calling out for help. Upon entering room, patient was seen nh2 standing. Awake and alert, reports feeling anxious with no relief since being medicated. Client repositioned safely back to bed. MD notified, call light placed within reach nh2 06:14 06:00 Reassessment: pt reports still feeling anxious with no relief from medications, nh2 states "I feel like I am having a heart attack." Denied repeat EKG. Cardiac monitoring maintained via bedside monitor. Rhythm is currently sinus tach at 130 bpm. Denies chest pain, indigestion, arm numbness, and SOB. S1 and S2 auscultated. Skin is warm and dry, appropriate for race. MD notified nh2 06:14 06:13 Reassessment: MD at bedside talking to patient nh2 nh2
[2025-05-17 08:12] VITALS: BP 113/66; O2SAT 96
== END 2025-05-17 07:41 | disposition home or self-care (01) ==
LOC: ER 04:06
DX: R00.0 Tachycardia, unspecified (principal); F41.9 Anxiety disorder, unspecified; E86.0 Dehydration; F10.90 Alcohol use, unspecified, uncomplicated
CPT/HCPCS: 96365; 96361; 93005 ×2; 85025; 80048 ×2; 36415; 84484 ×2; 83880; 71045; 96375; 99285; 82077; J3475; J7030 ×2; J1790

== ENCOUNTER 2025-05-17 10:16 | Emergency (ER) | payer MEDICAID ==
--- NOTE | 2025-05-17 10:26 | EDPHYS ---
Physician Documentation [facility] Name: Steph Olguin Age: 55 yrs Sex: Female : 1970 Arrival Date: 05/17/2025 Time: 10:16 Bed 16 Private MD: [facility] Physician Stephen Bundy HPI: 05/17 10:39 This 55 yrs old Female presents to ER via EMS with complaints of Altered Mental Status. sb4 10:39 Patient was brought in via EMS and PD with concerns of hallucinations. They reported sb4 that patient was seeing people that were not there. Additionally, [id number] states that when she was driving her home, she thought that she had bodies in the trunk and she was rifling through the glove box convinced that someone was stealing from her. She does have a history of anxiety and depression but no formal diagnosis of schizophrenia. Was seen here last night for anxiety, had a negative workup done and was discharged. Historical: - Allergies: 10:30 No Known Allergies; me1 - PMHx: 10:30 Anxiety; Depression; Panic Attacks; SVT; volvulus; me1 - Immunization history:: Adult Immunizations up to date. - Infectious Disease History:: Denies. - Social history:: Smoking status: Patient reports the use of cigarette tobacco products, smokes one pack cigarettes per day. ROS: 10:41 Constitutional: Negative for fever, chills, and weight loss, sb4 10:41 Psych: Positive for auditory hallucinations, visual hallucinations, 10:41 All other systems are negative, Exam: 10:41 Head/Face: Normocephalic, atraumatic. Eyes: Extra-ocular motions intact. Periorbital sb4 areas with no swelling, redness, or edema. ENT: Mucous membranes moist. Respiratory: No increased work of breathing, no retractions or nasal flaring. Abdomen/GI: Soft, non-tender, no distension. Skin: Warm, dry with normal turgor. Normal color with no rashes, no lesions, and no evidence of cellulitis. 10:41 Constitutional: The patient appears in no acute distress, alert, awake, 10:41 Psych: Oriented to person, place, time, Delusions/hallucinations are present and described as is seeing people who are not present. Vital Signs: 10:23 BP 148 / 84; Pulse 109; Resp 19; Temp 98.5; Pulse Ox 100% ; Weight 99.79 kg; Height 5 me1 ft. 11 in. ; Pain 0/10; 11:37 BP 165 / 85; Pulse 96; Resp 17; Temp 98.2; Pulse Ox 98% ; me1 10:23 Body Mass Index 30.68 (99.79 kg, 180.34 cm) me1 10:23 Pain Scale: Adult me1 MDM: 10:20 Medical Screening Exam initiated sb4 10:41 Data reviewed: vital signs, nurses notes, EMS record. Counseling: I had a detailed sb4 discussion with the patient and/or guardian regarding the historical points, exam findings, and any diagnostic results supporting the discharge/admit diagnosis, the need to transfer to another facility. 10:42 ED course: sister in law, Blanche, can be reached at [phone]. sb4 05/17 10:20 Order name: Suicide Screening (Aidan); Complete Time: 11:45 sb4 Administered Medications: No medications were administered Disposition Summary: 05/17/25 10:25 Transfer Ordered Notes: Transfer Location: Psych Facility sb4 Reason: Higher level of care sb4 Condition: Fair sb4 Problem: new sb4 Symptoms: are unchanged sb4 Accepting Physician: psych(05/17/25 11:46) me1 Diagnosis - Visual hallucinations sb4 - Paranoia sb4 Forms: - Medication Reconciliation Form sb4 - SBAR form sb4 Signatures: Dispatcher [employer] EDKamila Barclay PA-C PA-C sb4 Carie Talbot RN RN me1 Corrections: (The following items were deleted from the chart) 10:21 10:21 ACETAMINOPHEN+C.LAB.BRZ ordered. EDMS EDMS 10:21 10:21 BASIC METABOLIC PANEL+C.LAB.BRZ ordered. EDMS EDMS 10:21 10:21 CBC+H.LAB.BRZ ordered. EDMS EDMS 10:21 10:21 ETHANOL+C.LAB.BRZ ordered. EDMS EDMS 10:21 10:21 HEPATIC FUNCTION+C.LAB.BRZ ordered. EDMS EDMS 10:21 10:21 PROTIME (+INR)+COAG.LAB.BRZ ordered. EDMS EDMS 10:21 10:21 PTT, ACTIVATED+COAG.LAB.BRZ ordered. EDMS EDMS 10: 10:21 SALICYLATE+C.LAB.BRZ ordered. EDMS EDMS 10: 10:21 URINE DRUG SCREEN+UC.LAB.BRZ ordered. EDMS EDMS 10: 10:20 EKG - Nurse/Tech ordered. sb4 sb4 10: 10:20 Labs collected and sent ordered. sb4 sb4 10:39 10:25 psych sb4 sb4 10:43 10:39 Patient was brought in via EMS and PD with concerns of hallucinations. They sb4 reported that patient was seeing people that were not there. Additionally, [id number] states that when she was driving her home, she thought that her sister had bodies in the trunk and she was wrestling through the glove box convinced that someone was stealing from her. She does have a history of anxiety and depression but no formal diagnosis of schizophrenia. Was seen here last night for anxiety, had a negative workup done and was discharged. sb4 11:42 10:20 IV Saline Lock ordered. sb4 me1 11:46 10:39 psych sb4 me1
--- NOTE | 2025-05-17 11:47 | ER ---
Nurse's Notes [facility] Name: Steph Olguin Age: 55 yrs Sex: Female : 1970 Arrival Date: 05/17/2025 Time: 10:16 Bed 16 Private MD: Diagnosis: Visual hallucinations;Paranoia Presentation: 05/17 10:23 Chief complaint: EMS states: toned out to assist the police for visual and auditory me1 hallucinations. Patient kept calling the police to report a burglary and reported that shadow people were in her house and hiding in the dryer. Patient was seen here earlier this morning for anxiety. EMS reports that the patient takes ativan and is out but she did receive a dose this morning here. Patient does have an [facility] from [facility]. Coronavirus screen: At this time, the client does not indicate any symptoms associated with coronavirus-19. Ebola Screen: No symptoms or risks identified at this time. Initial Sepsis Screen: Does the patient meet any 2 criteria? HR > 90 bpm. Does the patient have a suspected source of infection? No. Patient's initial sepsis screen is negative. Risk Assessment: Do you want to hurt yourself or someone else? Patient reports no desire to harm self or others. Onset of symptoms is unknown. 10:23 Method Of Arrival: EMS[place] [facility] [place] Acuity: GRADY 3 me1 Triage Assessment: 10:31 General: Appears distressed, Behavior is cooperative, appropriate for age, anxious, me1 Reports insists that the door and curtain be closed because there are people out here that were at her house. Shakes her head and states, "I think I must be seeing things." "They keep saying that Im seeing things.". Pain: Denies pain. EENT: No signs and/or symptoms were reported regarding the EENT system. Neuro: Level of Consciousness is awake, alert, obeys commands, confused, Oriented to person, place, auditory and visual hallucinations reported by EMS and PD. Patient noted to want her door and curtain closed here because the same people she was seeing at home are here now.. Cardiovascular: Patient's skin is warm and dry. Respiratory: Airway is patent Respiratory effort is even, unlabored, Respiratory pattern is regular, symmetrical. GI: No signs and/or symptoms were reported involving the gastrointestinal system. : No signs and/or symptoms were reported regarding the genitourinary system. Derm: Skin is intact, is healthy with good turgor, Skin is diaphoretic, Skin is normal. Musculoskeletal: Circulation, motion, and sensation intact. Range of motion: intact in all extremities. Historical: - Allergies: 10:30 No Known Allergies; me1 - PMHx: 10:30 Anxiety; Depression; Panic Attacks; SVT; volvulus; me1 - Immunization history:: Adult Immunizations up to date. - Infectious Disease History:: Denies. - Social history:: Smoking status: Patient reports the use of cigarette tobacco products, smokes one pack cigarettes per day. Screenin:35 [facility] ED Fall Risk Assessment (Adult) History of falling in the last 3 months, [facility] [place] admission No falls in past 3 months (0 pts) Confusion or Disorientation Yes (5 pts) Intoxicated or Sedated No (0 pts) Impaired Gait No (0 pts) Mobility Assist Device Used No (0 pt) Altered Elimination No (0 pt) Score/Fall Risk Level 0 - 2 = Low Risk Maintained a safe environment, Provided non-skid footwear, Hourly rounding (assess needs \\T\\ fall precautionary measures) done. Abuse screen: Denies threats or abuse. Nutritional screening: No deficits noted. Tuberculosis screening: No symptoms or risk factors identified. Assessment: 10:35 General: See triage assessment. [facility] [place] Reassessment: Per SERGIO Saldivar we dont need labs as patient was just here and had [place] [facility] [place]. 11:00 Reassessment: Nurse to nurse done with Odilon Pittman. Transferred call back ky1 to progressive care unit registered nurse so that she can get acceptance information. Psych: 10:31 [place] Suicide Severity Screening: In the past month, have you wished you were me or wished you could go to sleep and not wake up? Patient responds "No." "In the past month, have you actually had any thoughts of killing yourself?" Patient responds "no." "In your lifetime, have you ever done anything, started to do anything, or prepared to do anything to end your life?" Patient responds "no.". Subjective: Patient's mood is flat Delusions are denied, Hallucinations are auditory, visual, Having thoughts of. Objective: Patient is cooperative, Speech is normal, Affect is flat. Safety Checks: Door is open. Visitors are present. Pt denies substance abuse. Commitment: Patient will be an involuntary commitment. 11:46 Interventions: n/a. Patient is not a danger to herself or others. Denies SI and HI. me1 Vital Signs: 10:23 BP 148 / 84; Pulse 109; Resp 19; Temp 98.5; Pulse Ox 100% ; Weight 99.79 kg; Height 5 me1 ft. 11 in. ; Pain 0/10; 11:37 BP 165 / 85; Pulse 96; Resp 17; Temp 98.2; Pulse Ox 98% ; me1 10:23 Body Mass Index 30.68 (99.79 kg, 180.34 cm) me1 10:23 Pain Scale: Adult ky1 ED Course: 10:20 Patient arrived in ED. sb4 10:20 [facility] sb[facility] 10:20 Stephen Bundy MD is Attending Physician. sb4 10:30 Triage completed. me1 10:30 Arm band placed on Patient placed in an exam room. me1 10:35 Patient has correct armband on for positive identification. Bed in low position. Call me1 light in reach. Side rails up X2. Provided Education on: POC. Verbalized understanding. Client placed on continuous cardiac and pulse oximetry monitoring. NIBP monitoring applied. Pulse ox on. NIBP on. 10:35 No provider procedures requiring assistance completed. me1 10:36 Carie Talbot, RN is Primary Nurse. me1 10:46 faxed over all clinical's to several facilities ( [facility], [facility], and [place]). bc6 11:[address] [place] Collier at [facility]. bc6 11:10 Riri with [facility] accepted transfer. bc6 11:45 Patient did not have IV access during this emergency room visit. me1 Administered Medications: No medications were administered Medication: 10:35 VIS not applicable for this client. me1 Outcome: 10:25 ER care complete, transfer ordered by . sb4 11:45 Transferred by ground EMS Note: Transferred to [facility]. me1 11:45 Condition: stable 11:45 Instructed on the need for transfer, 11:46 Patient left the ED. me1 Signatures: Kamila Fontaine PA-C PA-C sb4 Anusha Dotson bc6 Carie Talbot, RN RN me1 Corrections: (The following items were deleted from the chart) 11:45 11:37 BP 165 / 85; Pulse 96bpm; Resp 17bpm; Pulse Ox 98%; me1 me1
[2025-05-17 11:53] VITALS: BP 165/85; TEMP 98.2; O2SAT 98
== END 2025-05-17 11:46 ==
LOC: ER 10:16
DX: F22 Delusional disorders (principal); F17.210 Nicotine dependence, cigarettes, uncomplicated
CPT/HCPCS: 99285